=== PATIENT | male | born 1975 | race Caucasian/White ===

== ENCOUNTER 2016-12-12 15:09 | Inpatient (IN) ==
--- NOTE | 2016-12-12 15:34 | Emergency Department Note ---
Disposition Clinical Impression: Cellulitis of foot, Diabetes, Sepsis, Ulcer of left lower leg Disposition: Admitted As Inpatient Referrals: Barby Godwin MD [Primary Care Provider] - Forms: ED Satisfaction Letter General Adult HPI - General Chief complaint: ED Extremity Injury, Lower Stated complaint: Right foot celluitis Time Seen by Provider: 12/12/16 15:32 Source: patient, family Limitations: no limitations - History of Present Illness HPI Narrative: 41-year-old male with a history of diabetes mellitus reports to the emergency department complaining of right foot pain and swelling. The patient is a type II diabetic. The patient states about 9 days ago he injured his toes when he kicked an object on accident. There is no history of ankle or leg injury. The patient has pain mostly in the foot and describes swelling and redness throughout. The patient was recently treated for cellulitis of left lower extremity. He is no longer on antibiotics this time. The patient complains of some calf pain on the right but there has been no chest pain shortness of breath or coughing up blood. No syncope. No abdominal pain vomiting or diarrhea. No upper extremity or left lower extremity concerns apart from chronic residual open lesion on the left lower extremity. There is no history of coldness blueness numbness or weakness of the arms or legs. No trouble moving the arms or legs independently no headache back pain runny nose ear pain or sore throat. No fevers are reported. Last tetanus shot within 5 years. Onset (ago): day(s) Pain Scale: 3 - Related Data Home Medications Medication Instructions Recorded Confirmed Metformin HCl [Fortamet] 1,000 mg PO DAILY 09/23/16 09/23/16 Allergies Allergy/AdvReac Type Severity Reaction Status Date / Time No Known Allergies Allergy Verified 09/01/16 19:41 All systems ED: reviewed and negative except as stated. Past Medical History - Past Medical History Medical history: Reports: diabetes, other Surgical history: Reports: no surgical history Psychiatric history: Reports: anxiety - Social History Smoking Status: Never smoker Smokeless Tobacco Status: No Alcohol use: Reports: none Drug use: Reports: none Physical Exam - General Limitations: no limitations General appearance: alert, in no apparent distress - Head Head exam: atraumatic, normocephalic, normal inspection - Eye Eye exam: Present: normal appearance, PERRL, EOMI. Absent: scleral icterus - ENT ENT exam: normal exam, normal oropharynx, mucous membranes moist, TM's normal bilaterally, normal external ear exam - Neck Neck exam: Present: normal inspection, full ROM, trachea midline. Absent: tenderness - Chest Chest inspection: Present: normal inspection, symmetric chest wall rise - Respiratory Respiratory exam: Present: normal lung sounds bilaterally. Absent: respiratory distress, accessory muscle use, prolonged expiratory phase - Cardiovascular Cardiovascular exam: Present: normal rhythm, tachycardia - Abdominal Exam Abdominal exam: Present: soft, Non-Tender, normal bowel sounds. Absent: tenderness, distention, guarding, rebound, rigidity - Extremities Exam Extremities exam: Present: full ROM, normal capillary refill, other (The upper extremities are supple and warm and well perfused without evidence of injury or acute neurovascular or neuromuscular compromise. The left lower extremity is supple and warm and well perfused without evidence of injury or acute neurovascular or neuromuscular compromise, there is a chronic appearing lesion on the distal posterior calf, no abscess or fluctuance or blackening of the skin. No oozing or drainage. The right lower extremity is supple, there is obvious reddening throughout the entire right foot with edema. The dorsalis pedis pulses palpable. No crepitance of the skin or blackening. Some pain in the leg and calf but no swelling. No oozing weeping or abscess appreciated.). Absent: joint swelling, calf tenderness - Expanded Lower Extremity Exam Lower leg exam: Present: tenderness, swelling. Absent: laceration, ecchymosis, deformity, crepitus, erythema, palpable cord Neurovascular/Tendon exam: Present: normal capillary refill. Absent: motor deficit, sensory deficit, tendon deficit, extremity cold to touch, pallor - Back Exam Back exam: Present: normal inspection, full ROM. Absent: tenderness, CVA tenderness (R), CVA tenderness (L), vertebral tenderness - Neurological Exam Neurological exam: Present: alert, oriented X3, CN II-XII intact. Absent: motor sensory deficit - Psychiatric Psychiatric exam: Present: normal affect, normal mood - Skin Skin exam: Present: warm, dry, intact, normal color, erythema (Right foot only,) . Absent: rash, cyanosis, diaphoresis, pallor, mottled Course Vital Signs Temperature 99.1 F 12/12/16 15:20 Pulse Rate 108 12/12/16 15:20 Respiratory Rate 16 12/12/16 15:20 Blood Pressure 126/80 12/12/16 15:20 O2 Sat by Pulse Oximetry 100 12/12/16 15:20 Temperature 99.1 F 12/12/16 15:20 Pulse Rate 98 12/12/16 17:30 Respiratory Rate 16 12/12/16 17:30 Blood Pressure 114/77 12/12/16 17:30 O2 Sat by Pulse Oximetry 98 12/12/16 17:30 Oxygen Delivery Oxygen Delivery Room Air Medical Decision Making - MDM Narrative Medical decision making narrative: The patient seems to have significant redness of the right foot, x-ray is negative, the patient is tachycardic, has no elevated white count, and a source for infection with an associated CRP in the 270 range. The patient is diabetic and appears to have significant cellulitis and meets sepsis criteria. IV fluids were ordered, IV antibiotics were given. Blood cultures were sent. Based on the patient's acute infection with secondary sepsis parameters, I thought appropriate to admit the patient to the hospital. I have discussed the case with the hospitalist on-call who has accepted the patient to their care. - Lab Data Lab results reviewed: Yes I reviewed the patient's lab results. Result diagrams: 12/12/16 16:12 12/12/16 16:12 Lab Results 12/12/16 12/12/16 12/12/16 Range/Units 16:12 16:12 16:12 WBC 11.9 H (4.3-11.1) K/mcL RBC 4.49 (4.19-5.50) M/mcL Hgb 13.0 (12.9-16.9) g/dL Hct 37.6 (37.5-50.1) % MCV 83.7 (83.0-100.0) fL MCH 29.0 (28.0-33.3) pg MCHC 34.6 (31.6-35.5) g/dL RDW 12.4 (11.5-14.5) % Plt Count 263 (140-400) K/mcL MPV 9.1 L (9.4-12.4) fL Immature Gran % 0.3 (0-4) % Seg Neutrophils % 77.1 % Lymphocytes % 12.4 % Monocytes % 9.3 % Eosinophils % 0.6 % Basophils % 0.3 % Neutrophils # 9.2 H (1.6-8.9) K/mcL Lymphocytes # 1.5 (0.6-4.6) K/mcL Monocytes # 1.1 (0.0-1.3) K/mcL Eosinophils # 0.1 (0.0-0.6) K/mcL Basophils # 0.0 (0.0-0.2) K/mcL Sodium 137 (136-145) mEq/L Potassium 3.8 (3.5-4.5) mEq/L Chloride 98 (98-109) mEq/L Carbon Dioxide 29 (19-29) mEq/L BUN 14 (8-26) mg/dL Creatinine 0.96 (0.72-1.25) mg/dL Est GFR ( Amer) > 60 (> 60) Est GFR (Non-Af Amer) > 60 (> 60) BUN/Creatinine Ratio 15 (6-26) Glucose 203 H (70-99) mg/dL Calculated Osmolality 290 (280-300) Lactic Acid 1.2 (0.5-2.2) mmol/L Calcium 9.7 (8.6-10.8) mg/dL Magnesium 2.0 (1.6-2.6) mg/dL Total Bilirubin 0.8 (0.2-1.2) mg/dL Direct Bilirubin 0.4 (0.0-0.5) mg/dL Indirect Bilirubin 0.4 (0.0-1.2) mg/dL AST 10 (5-34) Units/L ALT 9 (0-55) Units/L Alkaline Phosphatase 77 (38-126) Units/L C-Reactive Protein 270 H (Less than 5) mg/L Serum Total Protein 7.8 (6.0-8.3) g/dL Albumin 3.1 L (3.5-5.0) g/dL Globulin 4.7 H (2.4-3.5) g/dL Albumin/Globulin Ratio 0.7 L (1.1-2.2) - Radiology Data Radiology results reviewed: Yes I reviewed the patient's radiology results.
[2016-12-12] MEDS ORDERED: Vancomycin 1,000 MG in D5% in Water 250 ML IVPB ONE (15:43)
[2016-12-12] MEDS ORDERED: Piperacillin/Tazobactam 3.375 GM in D5% in Water (Mini-Bag+) 100 ML IVPB ONE (15:43)
[2016-12-12] MEDS ORDERED: *HR* HYDROcodone/Acet 5/325 mg TABLET PO ONE (15:43)
[2016-12-12] MEDS ORDERED: 0.9 % Sodium Chloride 1,000 ML IVC SCH (15:45)
[2016-12-12 16:21] LABS: Basophils % 0.3 %; Eosinophils # 0.1 K/mcL (0.0-0.6); Eosinophils % 0.6 %; Hematocrit 37.6 % (37.5-50.1); Immature Granulocytes % 0.3 % (0-4); Lymphocytes # 1.5 K/mcL (0.6-4.6); Lymphocytes % 12.4 %; Mean Corpuscular HGB Conc 34.6 g/dL (31.6-35.5); Mean Corpuscular Volume 83.7 fL (83.0-100.0); Mean Platelet Volume 9.1 fL (9.4-12.4); Monocytes # 1.1 K/mcL (0.0-1.3); Monocytes % 9.3 %; Neutrophils # 9.2 K/mcL (1.6-8.9); Platelet Count 263 K/mcL (140-400); Red Blood Count 4.49 M/mcL (4.19-5.50); Red Cell Distribution Width 12.4 % (11.5-14.5); Segmented Neutrophils % 77.1 %
[2016-12-12 16:33] LABS: Alanine Aminotransferase 9 Units/L (0-55); Albumin 3.1 g/dL (3.5-5.0); Albumin/Globulin Ratio 0.7 (1.1-2.2); Alkaline Phosphatase 77 Units/L (38-126); Aspartate Amino Transferase 10 Units/L (5-34); BUN/Creatinine Ratio 15 (6-26); Bilirubin,Direct 0.4 mg/dL (0.0-0.5); Bilirubin,Indirect 0.4 mg/dL (0.0-1.2); Bilirubin,Total 0.8 mg/dL (0.2-1.2); Blood Urea Nitrogen 14 mg/dL (8-26); Calcium 9.7 mg/dL (8.6-10.8); Carbon Dioxide 29 mEq/L (19-29); Chloride 98 mEq/L (98-109); Globulin 4.7 g/dL (2.4-3.5); Glucose 203 mg/dL (70-99); Osmolality,Calculated 290 (280-300); Potassium 3.8 mEq/L (3.5-4.5); Sodium 137 mEq/L (136-145); Total Protein 7.8 g/dL (6.0-8.3); eGFR For African Americans > 60 (> 60); eGFR For Non-African Americans > 60 (> 60)
[2016-12-12 17:57] LABS: C-Reactive Protein 270 mg/L (Less than 5)
[2016-12-12] MEDS ORDERED: Dextrose Gel 15 GM PO PRN ×2 (19:45)
[2016-12-12] MEDS ORDERED: Naloxone 0.4 MG/ML INJ IVP PRN (19:45)
[2016-12-12] MEDS ORDERED: *HR* Dextrose 50 % in Water (Syg) 50 ML SYRINGE IVP PRN (19:45)
[2016-12-12] MEDS ORDERED: D5% in Water 1,000 ML IVC PRN (19:45)
[2016-12-12] MEDS ORDERED: *HR* HYDROcodone/Acet 5/325 mg TABLET PO PRN (19:45)
[2016-12-12] MEDS ORDERED: Ibuprofen 400 MG TABLET PO PRN (19:45)
[2016-12-12] MEDS ORDERED: *HR* Morphine 2 MG/ML SYRINGE IVP PRN (19:45)
--- NOTE | 2016-12-12 19:59 | Internal Med History&Physical ---
Date of Encounter: 12/12/16 Time of Encounter: 19:49 Assessment and Plan (1) Cellulitis of foot Current visit: Yes Status: Acute Patient with swelling, erythema, and tenderness in right foot and calf. WBC elevated to 11.9. CRP elevated 270. Foot xray shows no acute osseous abnormality. blood cultures drawn and sent. IV vanc and zosyn IV fluids 0.9NS at 100ml/hr will also get doppler of RLE to rule out DVT. (2) Sepsis Current visit: Yes Status: Acute Patient with RLE cellulitis, elevated WBC to 11.9 and tachycardia with HR 90s- 100s, meeting criteria for sepsis. Lactic acid normal at 1.2 blood cultures drawn and sent IV antibiotic initiated with vanc and zosyn Patient given 2L of fluid bolus in the ED IV fluids at 100mL/hr Qualifiers: Sepsis type: sepsis due to unspecified organism Qualified Code(s): A41.9 - Sepsis, unspecified organism (3) Type 2 diabetes mellitus Current visit: Yes Status: Acute Patient diagnosed with Type 2 diabetes in August when he presented with LLE ulcer. Hgb A1c was 10.3% at that time. Since then, he has been on a diabetic diet and taking metformin. Hold metformin. Check Hgb A1c diabetic diet sliding scale correction dose hypoglycemic protocol. Qualifiers: Diabetes mellitus complication status: with skin complications Diabetes mellitus complication detail: with other skin ulcer Diabetes mellitus residential insulin use: without residential use Qualified Code(s): E11.622 - Type 2 diabetes mellitus with other skin ulcer (4) Ulcer of left lower leg Current visit: Yes Status: Acute Patient has healing ulcer of LLE, following with the wound care center as an outpatient. Consult to wound care. Qualifiers: Non-pressure ulcer stage: limited to breakdown of skin Qualified Code(s): L97.921 - Non-pressure chronic ulcer of unspecified part of left lower leg limited to breakdown of skin (5) DVT prophylaxis Current visit: Yes Status: Acute Up to chair BID anti-embolic stockings lovenox 40mg SQ daily Internal Medicine - H&P: HPI Chief complaint: RLE pain and swelling Admitted From: Emergency Dept Plans for Post Hospital Care: Home History of present illness: Mr. Lewis is a 41 year old male with mild developmental delay, with recently diagnosed type 2 diabetes and LLE diabetic ulcer who presented to the ED today with complaints of right foot pain, swelling and redness. Patient reports that over a week ago, he accidentally kicked something with his right foot, resulting in the loss of 2 of his toe nails. He noted some redness on the the top of his right foot on , which he thought was just a rash. He developed some pain in the right calf on Wednesday. This morning he woke up and the foot was significantly swollen and the pain had increased, prompting his mother to bring him to the ED. He denies any fever, chills, sweats, body aches , nausea, vomiting or diarrhea. He reports some tingling in the right toes. Evaluation in the ED included a right foot xray which was negative for any acute osseous abnormality. The blood cell count was elevated to 11.9. Blood sugar was elevated to 203. Lactic acid was normal at 1.2. He was tachycardic with heart rate in the 90s to low 100s. Blood cultures were drawn and patient was initiated on broad-spectrum antibiotics. On exam, patient is alert and oriented, in no acute distress. Heart has regular rate and rhythm and lungs are clear bilaterally to ausculation. Right foot has significant swelling with erythema in the dorsal aspect just proximal to the toes. He has good capillary refill in the toes and intact sensation and movement. He has a healing ulcer on the posterior aspect of his left lower leg. He is tender to palpation in right ankle and posterior calf. Past Med Surg Social Fam HX - Past Medical History Medical history: diabetes, other Psychiatric history: anxiety - Past Surgical History Surgical History: no surgical history - Social History Smoking Status: Never smoker Smokeless Tobacco Status: No Alcohol use: none Drug use: none - Family History Mother Living Status: Still Living Hx Family Endocrine Disorder: Yes Father Living Status: Cause of : DC Hx Family Cardiac Disorders: Yes Internal Medicine - H&P: Meds Metformin HCl [Fortamet] 1,000 mg PO DAILY 09/23/16 [History] Allergies No Known Allergies Allergy (Verified 09/01/16 19:41) All Systems PM: A 10-system review of systems was performed and is negative for pertinent findings except as documented above in the HPI. - Constitutional Constitutional: no chills, no fever(s), no night sweats - EENT Eyes: no change in vision, no discharge, no pain, no photophobia Ears: no ear discharge, no ear pain, no tinnitus Nose, mouth and throat: no dysphagia, no nasal discharge, no neck pain, no sore throat - Cardiovascular Cardiovascular ROS IM: no chest pain, no diaphoresis, no dyspnea, no lightheadedness, no palpitations, no syncope - Respiratory Respiratory: no cough, no dyspnea, no wheezing, no excessive phlegm production - Gastrointestinal Gastrointestinal: no abdominal pain, no diarrhea, no hematemesis, no hematochezia, no melena, no nausea, no vomiting - Musculoskeletal Musculoskeletal ROS IM: joint swelling (right foot), tingling (right toes), no numbness - Integumentary Integumentary IM: no rash, no unusual bruising - Neurological Neurological ROS: no confusion, no convulsions, no focal weakness, no numbness, no tingling, no tremor(s) - Hematologic/Lymphatic Hematologic/Lymphatic: no easy bruising - Constitutional Vitals: Temp Pulse Resp BP Pulse Ox 99.1 F 94 16 113/72 99 12/12/16 15:20 12/12/16 18:49 12/12/16 18:59 12/12/16 18:59 12/12/16 18:49 General appearance: Present: A&O X 3, pleasant, no acute distress - Head Head exam: Present: atraumatic, normocephalic - Eye Eye exam: Present: PERRL, conjuntiva pink, sclera anicteric Pupils: Present: PERRL - Neck Neck exam general surgery: Present: supple, trachea midline. Absent: lymphadenopathy - Respiratory Respiratory exam: Present: CTAB. Absent: accessory muscle use, rales, rhonchi, wheezes - Cardiovascular Cardiovascular exam: Present: RRR, +S1, +S2. Absent: diastolic murmur, gallop, rubs, systolic murmur - GI/Abdominal GI/Abdominal exam: Present: normal bowel sounds, soft, no peritoneal signs. Absent: distended, tenderness - Extremities Exam Extremities exam: Present: calf tenderness (right), normal capillary refill, pedal edema (right foot ), tenderness (right ankle and calf), warm, radial pulses palpable and symetrical. Absent: cyanotic - Neurological Exam Neurological exam: Present: CN II-XII intact, oriented X3, no focal deficits. Absent: facial droop, speech deficit - Skin Skin exam: Present: dry, intact Internal Med - H&P Results - Labs CBC & Chem 7: 12/12/16 16:12 12/12/16 16:12 Labs: All Lab Results (24 Hours) 12/12/16 12/12/16 12/12/16 Range/Units 16:12 16:12 16:12 WBC 11.9 H (4.3-11.1) K/mcL RBC 4.49 (4.19-5.50) M/mcL Hgb 13.0 (12.9-16.9) g/dL Hct 37.6 (37.5-50.1) % MCV 83.7 (83.0-100.0) fL MCH 29.0 (28.0-33.3) pg MCHC 34.6 (31.6-35.5) g/dL RDW 12.4 (11.5-14.5) % Plt Count 263 (140-400) K/mcL MPV 9.1 L (9.4-12.4) fL Immature Gran % 0.3 (0-4) % Seg Neutrophils % 77.1 % Lymphocytes % 12.4 % Monocytes % 9.3 % Eosinophils % 0.6 % Basophils % 0.3 % Neutrophils # 9.2 H (1.6-8.9) K/mcL Lymphocytes # 1.5 (0.6-4.6) K/mcL Monocytes # 1.1 (0.0-1.3) K/mcL Eosinophils # 0.1 (0.0-0.6) K/mcL Basophils # 0.0 (0.0-0.2) K/mcL Sodium 137 (136-145) mEq/L Potassium 3.8 (3.5-4.5) mEq/L Chloride 98 (98-109) mEq/L Carbon Dioxide 29 (19-29) mEq/L BUN 14 (8-26) mg/dL Creatinine 0.96 (0.72-1.25) mg/dL Est GFR ( Amer) > 60 (> 60) Est GFR (Non-Af Amer) > 60 (> 60) BUN/Creatinine Ratio 15 (6-26) Glucose 203 H (70-99) mg/dL Calculated Osmolality 290 (280-300) Lactic Acid 1.2 (0.5-2.2) mmol/L Calcium 9.7 (8.6-10.8) mg/dL Magnesium 2.0 (1.6-2.6) mg/dL Total Bilirubin 0.8 (0.2-1.2) mg/dL Direct Bilirubin 0.4 (0.0-0.5) mg/dL Indirect Bilirubin 0.4 (0.0-1.2) mg/dL AST 10 (5-34) Units/L ALT 9 (0-55) Units/L Alkaline Phosphatase 77 (38-126) Units/L C-Reactive Protein 270 H (Less than 5) mg/L Serum Total Protein 7.8 (6.0-8.3) g/dL Albumin 3.1 L (3.5-5.0) g/dL Globulin 4.7 H (2.4-3.5) g/dL Albumin/Globulin Ratio 0.7 L (1.1-2.2) - Diagnostic Studies Other Images Additional comments: Foot X-Ray 12/12/16 15:42 IMPRESSION: No acute osseous abnormality. D/ / Lee Cadena MD / Lee Cadena MD Interpreting Provider: Lee Cadena MD
[2016-12-12 20:03] LABS: Hemoglobin A1C 6.7 %
--- NOTE | 2016-12-12 20:37 | Event Note ---
Date of Encounter: 12/12/16 Time of Encounter: 20:36 Patient seen and examined. Right foot cellulitis. Still has a left leg non- healing wound. Karli. A1C 6.7. Blood and wound culture. Full code
[2016-12-12] MEDS ORDERED: Vancomycin 1,500 MG in D5% in Water 250 ML IVPB SCH (21:00)
[2016-12-12] MEDS: Insulin LISPRO 300 UNITS/3 ML VIAL SQ SCH (22:20)
[2016-12-12] MEDS: 0.9 % Sodium Chloride 1,000 ML IVC SCH (22:24)
[2016-12-12] MEDS: Piperacillin/Tazobactam 3.375 GM in D5% in Water (Mini-Bag+) 100 ML IVPB SCH (23:43)
[2016-12-13] MEDS: Vancomycin 1,500 MG in D5% in Water 250 ML IVPB SCH ×2 (06:05→16:24)
[2016-12-13] MEDS: *HR* Enoxaparin 40 MG/0.4 ML SYRINGE SQ SCH (06:05)
[2016-12-13 06:07] LABS: Basophils % 0.4 %; Eosinophils # 0.1 K/mcL (0.0-0.6); Eosinophils % 0.7 %; Immature Granulocytes % 0.3 % (0-4); Lymphocytes # 1.3 K/mcL (0.6-4.6); Lymphocytes % 12.8 %; Mean Corpuscular HGB Conc 34.7 g/dL (31.6-35.5); Mean Corpuscular Hemoglobin 29.5 pg (28.0-33.3); Mean Corpuscular Volume 85.1 fL (83.0-100.0); Mean Platelet Volume 9.4 fL (9.4-12.4); Monocytes # 0.9 K/mcL (0.0-1.3); Monocytes % 8.5 %; Neutrophils # 7.8 K/mcL (1.6-8.9); Platelet Count 240 K/mcL (140-400); Red Blood Count 3.76 M/mcL (4.19-5.50); Red Cell Distribution Width 12.7 % (11.5-14.5); Segmented Neutrophils % 77.3 %
[2016-12-13 06:16] LABS: BUN/Creatinine Ratio 13 (6-26); Blood Urea Nitrogen 10 mg/dL (8-26); Calcium 8.3 mg/dL (8.6-10.8); Carbon Dioxide 23 mEq/L (19-29); Chloride 103 mEq/L (98-109); Glucose 178 mg/dL (70-99); Osmolality,Calculated 287 (280-300); Potassium 3.7 mEq/L (3.5-4.5); Sodium 137 mEq/L (136-145); eGFR For African Americans > 60 (> 60); eGFR For Non-African Americans > 60 (> 60)
[2016-12-13 06:30] LABS: Hemoglobin 11.1 g/dL (12.9-16.9)
[2016-12-13] MEDS: Insulin LISPRO 300 UNITS/3 ML VIAL SQ SCH ×4 (08:23→21:15)
[2016-12-13] MEDS: Piperacillin/Tazobactam 3.375 GM in D5% in Water (Mini-Bag+) 100 ML IVPB SCH ×2 (08:27→16:14)
--- NOTE | 2016-12-13 09:05 | Internal Med Progress Note ---
<Dimas Trinidad - Last Filed: 12/13/16 16:08> Date of Encounter: 12/13/16 Time of Encounter: 09:03 - Assessment and plan (1) Cellulitis of foot Current Visit: Yes Status: Acute Assessment and plan: Cellulitis of right foot up to mid crespo. Patient is currently on broad- spectrum antibiotics including vancomycin and Zosyn. Possible sources may be secondary to injury to the third and fourth toenails in the setting of type 2 diabetes and fungal infection. Patient also has a lesion on the plantar surface callus that may be a source of infection. - Will continue antibiotic coverage with Vancomycin. Coverage for staph. - Topical fungal coverage as patient appears to have right foot fungal infection. - 3 x-ray of the right foot does not demonstrate any bony fractures, there is soft tissue edema. Plan: -Continue current antibiotic coverage - Controlled type 2 diabetes for improved healing (2) Callus of foot Current Visit: No Status: Acute Assessment and plan: Patient has callus of bilateral feet with pes cavus. Patient is a type II diabetic with calluses of both feet and the lesion on the right callus. - Patient will require podiatry follow-up outpatient for footcare. (3) Ulcer of left lower leg Current Visit: Yes Status: Acute Assessment and plan: Chronic ulcer of the left lower extremity, not infected. currently continue wound care. - Continue Armando wrap. - Consult was placed and care. Qualifiers: Non-pressure ulcer stage: limited to breakdown of skin Qualified Code(s): L97.921 - Non-pressure chronic ulcer of unspecified part of left lower leg limited to breakdown of skin (4) Type 2 diabetes mellitus Current Visit: Yes Status: Acute Assessment and plan: Patient is a known type II diabetic, with A1c of 6.7 upon admission. Currently hyperglycemic, home medications are metformin by mouth daily Plan: - Continue ACHS glucose checks -Continue low-dose inpatient sliding scale - Levemir 10 units subcutaneous at bedtime Qualifiers: Diabetes mellitus complication status: with skin complications Diabetes mellitus complication detail: with other skin ulcer Diabetes mellitus halfway insulin use: without intermediate school teacher use Qualified Code(s): E11.622 - Type 2 diabetes mellitus with other skin ulcer - Subjective Interval history: Mr. Lewis 41M has been seen and evaluated this morning patient bedside. He is alert awake in no acute distress and has minimal pain. He feels that the swelling and pain has improved significantly compared to admission. He mentions that prior to the right foot swelling and erythema he had hit the corner of his bed ripping off two toe nails. The erythema and edema was progressive. He says the ulcer on the left lower extremity is improving and at the time of original diagnosis he was also diagnosed with type 2 diabetes with glucoses around 300. He denies any headaches, change in vision, chest pressure or chest pain or palpitations, nausea vomiting diarrhea constipation or polyuria. He is tolerating antibiotic therapy and is looking forward to discharge. - Constitutional Vitals: Temp Pulse Resp BP Pulse Ox 99.4 F 98 18 106/69 98 12/13/16 06:54 12/13/16 06:54 12/13/16 06:54 12/13/16 06:54 12/13/16 06:54 General appearance: Present: A&O X 3, pleasant, no acute distress - Head Head exam: Present: atraumatic, normocephalic - Eye Eye exam: Present: PERRL, conjuntiva pink, sclera anicteric Pupils: Present: PERRL - ENT ENT exam: Present: mucous membranes moist - Neck Neck exam general surgery: Present: supple, trachea midline. Absent: lymphadenopathy - Respiratory Respiratory exam: Present: CTAB. Absent: accessory muscle use, rales, rhonchi, wheezes - Cardiovascular Cardiovascular exam: Present: RRR, +S1, +S2. Absent: diastolic murmur, gallop, rubs, systolic murmur - GI/Abdominal GI/Abdominal exam: Present: normal bowel sounds, soft, no peritoneal signs. Absent: distended, tenderness - Extremities Exam Extremities exam: Present: pedal edema, warm, radial pulses palpable and symetrical. Absent: calf tenderness, cyanotic Additional comments: Right lower extremity demonstrates erythema and edema of the right foot, with erythema up to mid crespo. There are healed lesions to the cuticles of digits 3 and 4 of the right foot. Left lower extremity has Armando bandages wrapping around the distal portion above the ankle. Patient has full range of motion of the ankle joint and knee joint. No signs of erythema or edema surrounding. Patient has pes cavus left foot. - Neurological Exam Neurological exam: Present: alert, oriented X3, no focal deficits. Absent: pronater drift, facial droop, speech deficit - Psychiatric Psychiatric exam: Present: normal affect, normal mood Internal Medicine: Result - Labs CBC & Chem 7: 12/13/16 05:47 12/13/16 05:47 Labs: Short CBC 12/13/16 Range/Units 05:47 WBC 10.1 (4.3-11.1) K/mcL Hgb 11.1 L D (12.9-16.9) g/dL Hct 32.0 L (37.5-50.1) % Plt Count 240 (140-400) K/mcL Neutrophils # 7.8 (1.6-8.9) K/mcL BMP 12/13/16 05:47 Sodium 137 Potassium 3.7 Chloride 103 Carbon Dioxide 23 BUN 10 Creatinine 0.77 Glucose 178 H Calcium 8.3 L Consult Discharge Plan - Plan Referrals: Barby Godwin MD [Primary Care Provider] - <Katie Prasad - Last Filed: 12/13/16 17:35> Date of Encounter: 12/13/16 - Constitutional Vitals: Temp Pulse Resp BP Pulse Ox 98.3 F 101 18 119/80 97 12/13/16 16:45 12/13/16 16:45 12/13/16 16:45 12/13/16 16:45 12/13/16 16:45 Internal Medicine: Result - Labs CBC & Chem 7: 12/13/16 05:47 12/13/16 05:47 Labs: Short CBC 12/13/16 Range/Units 05:47 WBC 10.1 (4.3-11.1) K/mcL Hgb 11.1 L D (12.9-16.9) g/dL Hct 32.0 L (37.5-50.1) % Plt Count 240 (140-400) K/mcL Neutrophils # 7.8 (1.6-8.9) K/mcL BMP 12/13/16 05:47 Sodium 137 Potassium 3.7 Chloride 103 Carbon Dioxide 23 BUN 10 Creatinine 0.77 Glucose 178 H Calcium 8.3 L - Attending Attestation I examined this patient and reviewed laboratory, imaging and all diagnostic data. My medical decision-making was reviewed with Dr Trinidad - Resident Physician. I agree with the documented findings, disposition and treatment plan as described above
[2016-12-13] MEDS: 0.9 % Sodium Chloride 1,000 ML IVC SCH ×2 (10:24→23:14)
--- NOTE | 2016-12-13 13:43 | Venous Imaging Report ---
LE Venous Duplex Patient Name:Carlos Lewis Order Number:[id number] Procedure Date:12/13/2016 Date:1975Age:41 yrs Gender:Male Location:[facility] Room #: 3B52 Chaplain Resident:Kyree Mays RDCS Referring MD:Marysol Cortez, BODILY INJURY ADJUSTER recovery collector:Jeanie Godwin MD Reading MD:Michael Kinsey MD Primary Indications:Pain and swelling Secondary Indications: Risk Factors Yes/No Anticoagulants Yes Impressions: Right lower extremity: normal superficial and deep exam. Recommendations: After imaging the patient returned to their room. Critical findings reported to social media editor in person by Kyree Mays RDCS. Findings Venous Duplex Results: Right: Venous imaging of the lower extremity reveals full patency and normal vessel compressibility of the right distal iliac, right common femoral, right superficial femoral, right popliteal, right posterior tibial, right peroneal, right great saphenous and right lesser saphenous. Doppler signals in the evaluated veins were normal. Left: Venous imaging of the lower extremity reveals full patency and normal vessel compressibility of the left common femoral. Doppler signals in the evaluated veins were normal. Prior Study: No prior study available for comparison. Lower Extremity Venous Duplex Side Vein Compress Spontaneous Flow Augment Diameter (cm) Depth (cm) Right Distal Iliac Normal Yes Phasic Yes Right Common Femoral Normal Yes Phasic Yes Right Superficial Femoral Normal Yes Phasic Yes Right Popliteal Normal Yes Phasic Yes Right Posterior Tibial Normal Yes Phasic Yes Right Peroneal Normal Yes Phasic Yes Right Great Saphenous Normal Yes Phasic Yes Right Lesser Saphenous Normal Yes Phasic Yes Left Common Femoral Normal Yes Phasic Yes Updated by Michael Kinsey MD on 12/13/2016 1:39:19 PM electronically signed on 12/13/2016 1:39:48 PM with status of Final
[2016-12-13] MEDS: Insulin DETEMIR 100 UNIT/ML X5UNITS SQ SCH ×2 (13:46→21:33)
[2016-12-13] MEDS: Miconazole 2% cream 118 GM TUBE TP SCH ×2 (16:24→21:33)
[2016-12-14] MEDS: Piperacillin/Tazobactam 3.375 GM in D5% in Water (Mini-Bag+) 100 ML IVPB SCH (01:10)
[2016-12-14] MEDS: Vancomycin 1,500 MG in D5% in Water 250 ML IVPB SCH (04:34)
[2016-12-14 05:31] LABS: Basophils % 0.3 %; Eosinophils # 0.1 K/mcL (0.0-0.6); Eosinophils % 1.1 %; Hematocrit 33.1 % (37.5-50.1); Hemoglobin 10.9 g/dL (12.9-16.9); Immature Granulocytes % 0.4 % (0-4); Lymphocytes # 1.5 K/mcL (0.6-4.6); Lymphocytes % 12.9 %; Mean Corpuscular HGB Conc 32.9 g/dL (31.6-35.5); Mean Corpuscular Hemoglobin 28.4 pg (28.0-33.3); Mean Corpuscular Volume 86.2 fL (83.0-100.0); Monocytes # 1.1 K/mcL (0.0-1.3); Monocytes % 9.7 %; Neutrophils # 8.6 K/mcL (1.6-8.9); Platelet Count 282 K/mcL (140-400); Red Blood Count 3.84 M/mcL (4.19-5.50); Red Cell Distribution Width 12.6 % (11.5-14.5); Segmented Neutrophils % 75.6 %
[2016-12-14 05:36] LABS: BUN/Creatinine Ratio 10 (6-26); Blood Urea Nitrogen 8 mg/dL (8-26); Calcium 8.4 mg/dL (8.6-10.8); Carbon Dioxide 25 mEq/L (19-29); Chloride 104 mEq/L (98-109); Glucose 149 mg/dL (70-99); Osmolality,Calculated 285 (280-300); Potassium 3.5 mEq/L (3.5-4.5); Sodium 137 mEq/L (136-145); eGFR For African Americans > 60 (> 60); eGFR For Non-African Americans > 60 (> 60)
[2016-12-14] MEDS: *HR* Enoxaparin 40 MG/0.4 ML SYRINGE SQ SCH (05:43)
[2016-12-14] MEDS: Insulin LISPRO 300 UNITS/3 ML VIAL SQ SCH ×4 (08:40→20:47)
[2016-12-14] MEDS: Miconazole 2% cream 118 GM TUBE TP SCH ×2 (08:44→20:47)
[2016-12-14] MEDS: Insulin DETEMIR 100 UNIT/ML X5UNITS SQ SCH ×2 (11:56→20:45)
[2016-12-14] MEDS: 0.9 % Sodium Chloride 1,000 ML IVC SCH (11:56)
--- NOTE | 2016-12-14 12:04 | Internal Med Progress Note ---
<Dimas Trinidad - Last Filed: 12/14/16 15:10> Date of Encounter: 12/14/16 Time of Encounter: 09:00 - Assessment and plan (1) Cellulitis of foot Current Visit: Yes Status: Acute Assessment and plan: Cellulitis of right foot up to mid crespo. On admission, Patient was on broad- spectrum antibiotics including vancomycin and Zosyn. He was de-escalated to only Vancomycin 12/13. Possible sources may be secondary to injury to the third and fourth toenails in the setting of type 2 diabetes and fungal infection. Patient also has a lesion on the plantar surface callus that may be a source of infection. - 3 x-ray of the right foot does not demonstrate any bony fractures, there is soft tissue edema. Plan: - Will continue antibiotic coverage with Vancomycin. Coverage for staph. Plan to switch to PO antibiotics at discharge. - Topical fungal coverage as patient appears to have right foot fungal infection. - Controlled type 2 diabetes for improved healing (2) Callus of foot Current Visit: No Status: Acute Assessment and plan: Patient has callus of bilateral feet with pes cavus. Patient is a type II diabetic with calluses of both feet and the lesion on the right callus. - Patient will require podiatry follow-up outpatient for foot care. (3) Ulcer of left lower leg Current Visit: Yes Status: Acute Assessment and plan: Chronic ulcer of the left lower extremity, not infected. currently continue wound care. - Continue Armando wrap and wound care. Qualifiers: Non-pressure ulcer stage: limited to breakdown of skin Qualified Code(s): L97.921 - Non-pressure chronic ulcer of unspecified part of left lower leg limited to breakdown of skin (4) Type 2 diabetes mellitus Current Visit: Yes Status: Acute Assessment and plan: Patient is a known type II diabetic, with A1c of 6.7 upon admission. Currently hyperglycemic, home medications are metformin by mouth daily Plan: - Continue ACHS glucose checks - Continue low-dose inpatient sliding scale - Increased Levemir 10 units to twice a day. Qualifiers: Diabetes mellitus complication status: with skin complications Diabetes mellitus complication detail: with other skin ulcer Diabetes mellitus predatory animal exterminator insulin use: without predatory animal exterminator use Qualified Code(s): E11.622 - Type 2 diabetes mellitus with other skin ulcer - Subjective Interval history: Mr. Lewis 41M has been seen and evaluated this morning patient bedside. He is alert awake in no acute distress and has minimal pain. Pain and discomfort is improved daily. Still continues to have edematous right foot with erythema but denies any pain with movement. Denies any blurry vision, chest pains, shortness of breath, fevers chills, palpitations abdominal pains nausea vomiting diarrhea constipation. He is tolerating antibiotics currently. - Constitutional Vitals: Temp Pulse Resp BP Pulse Ox 97.5 F L 94 14 112/73 95 12/14/16 10:46 12/14/16 10:46 12/14/16 10:46 12/14/16 10:46 12/14/16 10:46 General appearance: Present: A&O X 3, pleasant, no acute distress - Head Head exam: Present: atraumatic, normocephalic - Eye Eye exam: Present: PERRL, conjuntiva pink, sclera anicteric Pupils: Present: PERRL - ENT ENT exam: Present: mucous membranes moist - Neck Neck exam general surgery: Present: supple, trachea midline. Absent: lymphadenopathy - Respiratory Respiratory exam: Present: CTAB. Absent: accessory muscle use, rales, rhonchi, wheezes - Cardiovascular Cardiovascular exam: Present: RRR, +S1, +S2. Absent: diastolic murmur, gallop, rubs, systolic murmur - GI/Abdominal GI/Abdominal exam: Present: normal bowel sounds, soft, no peritoneal signs. Absent: distended, tenderness - Extremities Exam Extremities exam: Present: pedal edema, warm, radial pulses palpable and symetrical. Absent: calf tenderness, cyanotic Additional comments: Right lower extremity demonstrates erythema and edema of the right foot. Increased edema compared to yesterday. There are healed lesions to the cuticles of digits 3 and 4 of the right foot. Left lower extremity has Armando bandages wrapping around the distal portion above the ankle. Patient has full range of motion of the ankle joint and knee joint. No signs of erythema or edema surrounding. Patient has pes cavus left foot. - Neurological Exam Neurological exam: Present: alert, oriented X3, no focal deficits. Absent: pronater drift, facial droop, speech deficit - Psychiatric Psychiatric exam: Present: normal affect, normal mood Internal Medicine: Result - Labs CBC & Chem 7: 12/14/16 04:05 12/14/16 04:05 Labs: Short CBC 04/24/17 Range/Units 04:05 WBC 11.4 H (4.3-11.1) K/mcL Hgb 10.9 L (12.9-16.9) g/dL Hct 33.1 L (37.5-50.1) % Plt Count 282 (140-400) K/mcL Neutrophils # 8.6 (1.6-8.9) K/mcL BMP 12/14/16 04:05 Sodium 137 Potassium 3.5 Chloride 104 Carbon Dioxide 25 BUN 8 Creatinine 0.80 Glucose 149 H Calcium 8.4 L Consult Discharge Plan - Plan Referrals: Barby Godwin MD [Primary Care Provider] - <Katie Prasad E - Last Filed: 12/14/16 17:54> Date of Encounter: 12/14/16 - Constitutional Vitals: Temp Pulse Resp BP Pulse Ox 98.4 F 102 18 120/74 95 12/14/16 15:02 12/14/16 15:02 12/14/16 15:02 12/14/16 15:02 12/14/16 15:02 Internal Medicine: Result - Labs CBC & Chem 7: 12/14/16 04:05 12/14/16 04:05 Labs: Short CBC 12/14/16 Range/Units 04:05 WBC 11.4 H (4.3-11.1) K/mcL Hgb 10.9 L (12.9-16.9) g/dL Hct 33.1 L (37.5-50.1) % Plt Count 282 (140-400) K/mcL Neutrophils # 8.6 (1.6-8.9) K/mcL [facility] 12/14/16 04:05 Sodium 137 Potassium 3.5 Chloride 104 Carbon Dioxide 25 BUN 8 Creatinine 0.80 Glucose 149 H Calcium 8.4 L - Attending Attestation I examined this patient and reviewed laboratory, imaging and all diagnostic data. My medical decision-making was reviewed with Dr Trinidad - Resident Physician. I agree with the documented findings, disposition and treatment plan as described above
[2016-12-14] MEDS ORDERED: Ibuprofen 400 MG TABLET PO PRN (13:47)
[2016-12-14] MEDS: Vancomycin 1,750 MG in D5% in Water 500 ML IVPB SCH (15:24)
[2016-12-15] MEDS: 0.9 % Sodium Chloride 1,000 ML IVC SCH (00:01)
[2016-12-15] MEDS: Vancomycin 1,750 MG in D5% in Water 500 ML IVPB SCH ×2 (04:36→17:48)
[2016-12-15 05:01] LABS: Basophils # 0.1 K/mcL (0.0-0.2); Basophils % 0.5 %; Eosinophils # 0.4 K/mcL (0.0-0.6); Eosinophils % 3.2 %; Hematocrit 31.6 % (37.5-50.1); Hemoglobin 10.7 g/dL (12.9-16.9); Immature Granulocytes % 0.3 % (0-4); Lymphocytes # 1.9 K/mcL (0.6-4.6); Lymphocytes % 17.2 %; Mean Corpuscular HGB Conc 33.9 g/dL (31.6-35.5); Mean Corpuscular Hemoglobin 29.2 pg (28.0-33.3); Mean Corpuscular Volume 86.3 fL (83.0-100.0); Mean Platelet Volume 9.1 fL (9.4-12.4); Monocytes # 1.1 K/mcL (0.0-1.3); Monocytes % 10.2 %; Neutrophils # 7.6 K/mcL (1.6-8.9); Platelet Count 297 K/mcL (140-400); Red Blood Count 3.66 M/mcL (4.19-5.50); Red Cell Distribution Width 12.6 % (11.5-14.5); Segmented Neutrophils % 68.6 %
[2016-12-15 05:16] LABS: BUN/Creatinine Ratio 10 (6-26); Blood Urea Nitrogen 8 mg/dL (8-26); Calcium 8.5 mg/dL (8.6-10.8); Carbon Dioxide 27 mEq/L (19-29); Chloride 105 mEq/L (98-109); Glucose 137 mg/dL (70-99); Osmolality,Calculated 288 (280-300); Potassium 3.5 mEq/L (3.5-4.5); Sodium 139 mEq/L (136-145); eGFR For African Americans > 60 (> 60); eGFR For Non-African Americans > 60 (> 60)
[2016-12-15] MEDS: *HR* Enoxaparin 40 MG/0.4 ML SYRINGE SQ SCH (07:18)
--- NOTE | 2016-12-15 09:14 | Internal Med Progress Note ---
<Dimas Trinidad - Last Filed: 12/15/16 11:25> Date of Encounter: 12/15/16 Time of Encounter: 09:12 - Assessment and plan (1) Cellulitis of foot Current Visit: Yes Status: Acute Assessment and plan: Cellulitis of right foot up to mid crespo. On admission, Patient was on broad- spectrum antibiotics including vancomycin and Zosyn. He was de-escalated to only Vancomycin 12/13. Possible sources may be secondary to injury to the third and fourth toenails in the setting of type 2 diabetes and fungal infection. Patient also has a lesion on the plantar surface callus that may be a source of infection. - 3 view x-ray of the right foot does not demonstrate any bony fractures, there is soft tissue edema. 12/15/2016: Evaluation today demonstrates improvement of the erythema but now blister formation between digits 4 and 5 of the right foot and drainage which is clear yellow likely serous. Right foot is still very edematous but demonstrating improvements on IV antibiotics. - May benefit from one more day of IV antibiotic therapy prior to discharge. Plan: - Will continue antibiotic coverage with Vancomycin. Coverage for staph. Plan to switch to PO antibiotics ( likely Bactrim DS) at discharge. - Topical fungal coverage as patient appears to have right foot fungal infection. - Controlled type 2 diabetes for improved healing - Consult placed to podiatry (2) Callus of foot Current Visit: No Status: Acute Assessment and plan: Patient has callus of bilateral feet with pes cavus. Patient is a type II diabetic with calluses of both feet and the lesion on the right callus. - Patient will require podiatry follow-up outpatient for foot care. (3) Ulcer of left lower leg Current Visit: Yes Status: Acute Assessment and plan: Chronic ulcer of the left lower extremity, not infected. currently continue wound care. - Continue Armando wrap and wound care. Qualifiers: Non-pressure ulcer stage: limited to breakdown of skin Qualified Code(s): L97.921 - Non-pressure chronic ulcer of unspecified part of left lower leg limited to breakdown of skin (4) Type 2 diabetes mellitus Current Visit: Yes Status: Acute Assessment and plan: Patient is a known type II diabetic, with A1c of 6.7 upon admission. Glucoses have been more controlled after increase of Levemir. Plan: - Continue ACHS glucose checks - Continue low-dose inpatient sliding scale - Continue Levemir 10 units to twice a day. Qualifiers: Diabetes mellitus complication status: with skin complications Diabetes mellitus complication detail: with other skin ulcer Diabetes mellitus intermediate insulin use: without supervisor lump room use Qualified Code(s): E11.622 - Type 2 diabetes mellitus with other skin ulcer - Subjective Interval history: Mr. Lewis 41M has been seen and evaluated this morning patient bedside. He is alert awake in no acute distress and has minimal pain. He feels that his right foot is much better and that he could tolerate outpatient antibiotic therapy for continued care. He denies any nausea vomiting diarrhea or constipation. No abdominal discomforts since starting antibiotics. He is tolerating by mouth intake. He has no pain in his right foot he feels that he can move his toes without discomfort. - Constitutional Vitals: Temp Pulse Resp BP Pulse Ox 98.1 F 89 16 107/71 98 12/15/16 08:20 12/15/16 08:20 12/15/16 08:20 12/15/16 08:20 12/15/16 08:20 General appearance: Present: A&O X 3, pleasant, no acute distress - Head Head exam: Present: atraumatic, normocephalic - Eye Eye exam: Present: PERRL, conjuntiva pink, sclera anicteric Pupils: Present: PERRL - Neck Neck exam general surgery: Present: supple, trachea midline. Absent: lymphadenopathy - Respiratory Respiratory exam: Present: CTAB. Absent: accessory muscle use, rales, rhonchi, wheezes - Cardiovascular Cardiovascular exam: Present: RRR, +S1, +S2. Absent: diastolic murmur, gallop, rubs, systolic murmur - GI/Abdominal GI/Abdominal exam: Present: normal bowel sounds, soft, no peritoneal signs. Absent: distended, tenderness - Extremities Exam Additional comments: Right lower extremity demonstrates erythema and edema of the right foot. Edema is slightly improved from yesterday. Erythema is slightly improved from yesterday. There is new blister formation between digits 4 and 5 with serous drainage. There are healed lesions to the cuticles of digits 3 and 4 of the right foot. Left lower extremity has Armando bandages wrapping around the distal portion above the ankle. Patient has full range of motion of the ankle joint and knee joint. No signs of erythema or edema surrounding. Patient has pes cavus left foot. Internal Medicine: Result - Labs CBC & Chem 7: 12/15/16 04:16 12/15/16 04:16 Labs: Short CBC 12/15/16 Range/Units 04:16 WBC 11.1 (4.3-11.1) K/mcL Hgb 10.7 L (12.9-16.9) g/dL Hct 31.6 L (37.5-50.1) % Plt Count 297 (140-400) K/mcL Neutrophils # 7.6 (1.6-8.9) K/mcL BMP 12/15/16 04:16 Sodium 139 Potassium 3.5 Chloride 105 Carbon Dioxide 27 BUN 8 Creatinine 0.78 Glucose 137 H Calcium 8.5 L Consult Discharge Plan - Plan Referrals: Barby Godwin MD [Primary Care Provider] - <Aly Mcghee - Last Filed: 12/15/16 18:17> Date of Encounter: 12/15/16 - Constitutional Vitals: Temp Pulse Resp BP Pulse Ox 98 F 86 16 122/82 95 12/15/16 12:05 12/15/16 12:05 12/15/16 12:05 12/15/16 12:05 12/15/16 12:05 Internal Medicine: Result - Labs CBC & Chem 7: 12/15/16 04:16 12/15/16 04:16 Labs: Short CBC 12/15/16 Range/Units 04:16 WBC 11.1 (4.3-11.1) K/mcL Hgb 10.7 L (12.9-16.9) g/dL Hct 31.6 L (37.5-50.1) % Plt Count 297 (140-400) K/mcL Neutrophils # 7.6 (1.6-8.9) K/mcL BMP 12/15/16 04:16 Sodium 139 Potassium 3.5 Chloride 105 Carbon Dioxide 27 BUN 8 Creatinine 0.78 Glucose 137 H Calcium 8.5 L - Impressions Impressions Foot MRI 12/15/16 13:08 IMPRESSION: 1. MRI signal characteristics in the 4th and 5th metatarsal heads, 4th proximal phalanx, and throughout the 5th digit compatible with noninfectious reactive osteitis. Early osteomyelitis not excluded. No osseous erosion or confluent decreased T1 signal to confirm osteomyelitis. 2. 2.1 x 1.3 x 0.9 cm fluid collection dorsal to and encasing the 4th proximal phalanx and 4th metatarsal head with overlying dorsal skin blister. 3. 1.1 x 1 x 0.4 cm fluid collection plantar to the 5th metatarsal head. 4. Small nonspecific 4th and 5th MTP joint effusions. 5. Mild 4th extensor tenosynovitis. D/ / Star López MD / Star López MD Interpreting Provider: Star López MD - Attending Attestation I examined this patient and my medical decision-making was reviewed with the Resident Physician, Dr Trinidad. I agree with the documented findings, disposition and treatment plan as described except to the extent set forth below. On examination his no acute distress. Heart is regular S1-S2 no murmurs. Lungs are clear. Abdomen is soft. Right foot demonstrates soft tissue swelling and blister formation as described above. Plan: continue with vancomycin. Topical miconazole. Consult podiatry. He is at high risk for morbidity and mortality and complications due to treatment with IV vancomycin which requires blood level monitoring for toxicity.
[2016-12-15] MEDS: Insulin LISPRO 300 UNITS/3 ML VIAL SQ SCH ×4 (11:12→23:41)
[2016-12-15] MEDS: Miconazole 2% cream 118 GM TUBE TP SCH (11:13)
[2016-12-15] MEDS: Insulin DETEMIR 100 UNIT/ML X5UNITS SQ SCH ×2 (11:13→23:39)
--- NOTE | 2016-12-15 13:07 | Podiatry Consult Note ---
Date of Encounter: 12/16/16 Time of Encounter: 12:30 Assessment and Plan (1) Callus of foot Current visit: No Status: Acute (2) Cellulitis of foot Current visit: Yes Status: Acute Cellulitis to left foot with a hemmorhaged callused lesion to sub #5 metatarsal head right foot and superficial wound to the interdigital webspace of toe #4 and #5. Will order MRI of right foot today to r/o osteomyelitis, abscess, fluid collection. Agree with present antibiotic therapy. CRP: 270. ESR ordered. Wound care to include cleansing right foot daily with mild soap and water, apply betadine to the interdigital webspace between toes #4 and #5 of the right foot twice daily with kerlix. Will continue to follow patient closely. (3) Sepsis Current visit: Yes Status: Acute Qualifiers: Sepsis type: sepsis due to unspecified organism Qualified Code(s): A41.9 - Sepsis, unspecified organism (4) Ulcer of left lower leg Current visit: Yes Status: Acute Continue wound care as ordered with Santyl ointment daily. Keep pressure away from left calf. 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 Lewis is a 41 year old male admitted to [place] for cellulitis of the right foot. Patient has a medical history significant for diabetes mellitus and a developmental delay. Patients mother at bedside. Patient has a wound to the left calf that started in August after the patient developed a rash and cellulitis. Patient is being treated by Dr. Bergeron in wound care and mom is performing daily dressing changes with Santyl ointment. Ulceration to left calf is healing. Per mother patient was evaluated 2 weeks ago and wound care by Dr. Bergeron after patient bumped toes #3 and #4 on his bed of the right foot. Mother states 4 days ago noticed a small rash to the right foot with increased redness and swelling over the next few days. Patient had right calf pain upon admission. Patient denies any pain currently. No complaints of fever, chills, nausea, vomiting, or flu like symptoms. A venous duplex of the right lower extremity was performed upon admission along with an x-ray of the right foot. Venouse duplex within normal limits and negative for a DVT. X-ray of right foot negative for fracture or dislocation. WBC upon admission 11.9 and 11.1 today. CRP: 270 Past Med Surg Social Fam HX - Past Medical History Medical history: diabetes, other Psychiatric history: anxiety - Past Surgical History Surgical History: no surgical history - Social History Smoking Status: Never smoker Smokeless Tobacco Status: No Alcohol use: none Drug use: none - Family History Mother Living Status: Still Living Hx Family Endocrine Disorder: Yes Father Living Status: Cause of : [place] Hx Family Cardiac Disorders: Yes Medications and Allergies Metformin HCl [Fortamet] 1,500 mg PO DAILY 09/23/16 [History] Collagenase Oint [Santyl] 1 appl TP DAILY 12/13/16 [History] Allergies No Known Allergies Allergy (Verified 09/01/16 19:41) All Systems Reviewed: A 10-system review of systems was performed and is negative for pertinent findings except as documented above in the HPI. Physical Exam - Constitutional Vitals: Temp Pulse Resp BP Pulse Ox 98 F 86 16 122/82 95 12/15/16 12:05 12/15/16 12:05 12/15/16 12:05 12/15/16 12:05 12/15/16 12:05 General appearance: cooperative, no acute distress Exam: Vascular: pedal pulses palpable 2+/4, no dependent rubor, no pallor, no cyanosis , no calf pain with manual compression. Ulcer: Superficial ulceration to the left calf measuring 4 cm in length x 2 cm in width, base of wound with 95 % granulation tissue and 5% fibrous tissue, no periwound erythema, no probe to bone, no streaking, no tunneling, no sinus tracts, no undermining. Wound edges connected. No purulent drainage. - Expanded Lower Extremities Exam Foot/Toe exam: Present: erythema (Erythema to the dorsum of the right foot and midfoot plantar aspect, 2+ swelling, hemmorhaged callused lesion to sub #5 metatarsal head right foot with superficial wound to the interdigital webspace between toe #4 and #5 right foot with serous drainage. ) Results - Labs Result Diagrams: 12/16/16 04:32 12/16/16 04:32 Labs: Abnormal lab results RBC 3.66 M/mcL (4.19-5.50) L 12/15/16 04:16 Hgb 10.7 g/dL (12.9-16.9) L 12/15/16 04:16 Hct 31.6 % (37.5-50.1) L 12/15/16 04:16 MPV 9.1 fL (9.4-12.4) L 12/15/16 04:16 Glucose 137 mg/dL (70-99) H 12/15/16 04:16 POC Glucose 193 (58-89) H 12/15/16 12:17 Hemoglobin A1c 6.7 % (-5.6) H 12/12/16 16:12 Calcium 8.5 mg/dL (8.6-10.8) L 12/15/16 04:16 C-Reactive Protein 270 mg/L (Less than 5) H 12/12/16 16:12 Albumin 3.1 g/dL (3.5-5.0) L 12/12/16 16:12 Globulin 4.7 g/dL (2.4-3.5) H 12/12/16 16:12 Albumin/Globulin Ratio 0.7 (1.1-2.2) L 12/12/16 16:12 Vancomycin Trough 7.4 mcg/mL (10-20) L 12/14/16 04:05 H & H 12/15/16 Range/Units 04:16 Hgb 10.7 L (12.9-16.9) g/dL Hct 31.6 L (37.5-50.1) % All other labs normal. Consult Discharge Plan - Plan Referrals: Barby Godwin MD [Primary Care Provider] -
[2016-12-16] MEDS: Vancomycin 1,750 MG in D5% in Water 500 ML IVPB SCH ×2 (04:08→17:34)
[2016-12-16 04:49] LABS: Basophils % 0.4 %; Eosinophils # 0.4 K/mcL (0.0-0.6); Eosinophils % 4.7 %; Hematocrit 30.6 % (37.5-50.1); Hemoglobin 10.4 g/dL (12.9-16.9); Immature Granulocytes % 0.3 % (0-4); Lymphocytes # 1.8 K/mcL (0.6-4.6); Lymphocytes % 19.4 %; Mean Corpuscular Hemoglobin 29.2 pg (28.0-33.3); Mean Platelet Volume 8.9 fL (9.4-12.4); Monocytes # 0.9 K/mcL (0.0-1.3); Monocytes % 9.6 %; Platelet Count 300 K/mcL (140-400); Red Blood Count 3.56 M/mcL (4.19-5.50); Red Cell Distribution Width 12.5 % (11.5-14.5); Segmented Neutrophils % 65.6 %
[2016-12-16 05:03] LABS: Alanine Aminotransferase 7 Units/L (0-55); Albumin 2.2 g/dL (3.5-5.0); Albumin/Globulin Ratio 0.6 (1.1-2.2); Alkaline Phosphatase 74 Units/L (38-126); Aspartate Amino Transferase 7 Units/L (5-34); BUN/Creatinine Ratio 14 (6-26); Bilirubin,Total 0.5 mg/dL (0.2-1.2); Blood Urea Nitrogen 11 mg/dL (8-26); Calcium 8.7 mg/dL (8.6-10.8); Carbon Dioxide 29 mEq/L (19-29); Chloride 105 mEq/L (98-109); Globulin 3.9 g/dL (2.4-3.5); Glucose 128 mg/dL (70-99); Osmolality,Calculated 289 (280-300); Potassium 3.5 mEq/L (3.5-4.5); Sodium 139 mEq/L (136-145); Total Protein 6.1 g/dL (6.0-8.3); eGFR For African Americans > 60 (> 60); eGFR For Non-African Americans > 60 (> 60)
[2016-12-16] MEDS: *HR* Enoxaparin 40 MG/0.4 ML SYRINGE SQ SCH (06:35)
[2016-12-16] MEDS: Insulin DETEMIR 100 UNIT/ML X5UNITS SQ SCH ×2 (08:53→21:20)
[2016-12-16] MEDS: Insulin LISPRO 300 UNITS/3 ML VIAL SQ SCH ×2 (08:56→13:55)
--- NOTE | 2016-12-16 09:47 | Podiatry Consult Note ---
Date of Encounter: 12/16/16 Time of Encounter: 09:00 Assessment and Plan (1) Abscess of right foot Current visit: Yes Status: Acute I had a thorough review with patient and his mother regarding his condition, my findings and recommendations for treatment. We discussed his right foot infection and the abscess in the foot which was found on the MRI. We discussed incision and drainage and excision debridement of the hemorrhagic callus of the right foot. Will likely pack open the wound. Risks vs benefits potential complications and consequences of the procedure was discussed with the patient and his mother. All of their questions were answered. Informed consent was signed. They understood he could require further surgery in the future and possibly lose his toes/partial foot/leg due to the infection. c/w antibiotics. c /w current wound care on the left calf. NPO. third mate to OR for incision and drainage right foot. (2) Cellulitis of foot Current visit: Yes Status: Acute (3) Type 2 diabetes mellitus Current visit: Yes Status: Acute Qualifiers: Diabetes mellitus complication status: with skin complications Diabetes mellitus complication detail: with other skin ulcer Diabetes mellitus shovel logger insulin use: without shovel logger use Qualified Code(s): E11.622 - Type 2 diabetes mellitus with other skin ulcer (4) Ulcer of left lower leg Current visit: Yes Status: Acute Qualifiers: Non-pressure ulcer stage: limited to breakdown of skin Qualified Code(s): L97.921 - Non-pressure chronic ulcer of unspecified part of left lower leg limited to breakdown of skin (5) Callus of foot Current visit: No Status: Acute (6) Foot ulcer, right Current visit: Yes Status: Acute Qualifiers: Non-pressure ulcer stage: limited to breakdown of skin Qualified Code(s): L97.511 - Non-pressure chronic ulcer of other part of right foot limited to breakdown of skin History of Present Illness HPI: Mr. Lewis is a 41 year old diabetic male admitted to with cellulitis of the right foot and started on IV antibiotics. Patient has a developmental delay. The patient's mother is bedside. She states they found out he was a diabetic in August and he was started on medication. Patient has a wound on the left calf that started in August after the patient developed a rash and cellulitis. Patients mother states this wound is doing much better. Patient is being treated by Dr. Bergeron in wound care and mom is performing daily dressing changes with Santyl ointment on the left. 2 weeks ago the patient bumped toes #3 and # 4 on his bed of the right foot. Mother stated about 5 days ago noticed a small rash to the right foot with increased redness and swelling over the next few days. He says his right foot has a throbbing pain. Patient denies any pain currently. Denied f/c/n/v/sob/cp. Venous doppler on admission was negative. xray done on admission. MRI now done on the right foot as he was not signficantly improving on antibiotics. Past Med Surg Social Fam HX - Past Medical History Medical history: diabetes, other Psychiatric history: anxiety - Past Surgical History Surgical History: no surgical history - Social History Smoking Status: Never smoker Smokeless Tobacco Status: No Alcohol use: none Drug use: none - Family History Mother Living Status: Still Living Hx Family Endocrine Disorder: Yes Father Living Status: Cause of : [place] Hx Family Cardiac Disorders: Yes Medications and Allergies Metformin HCl [Fortamet] 1,500 mg PO DAILY 09/23/16 [History] Collagenase Oint [Santyl] 1 appl TP DAILY 12/13/16 [History] Allergies No Known Allergies Allergy (Verified 09/01/16 19:41) All Systems Reviewed: A 10-system review of systems was performed and is negative for pertinent findings except as documented above in the HPI. - Constitutional Constitutional: as per HPI - Cardiovascular Cardiovascular: as per HPI - Respiratory Respiratory: as per HPI - Musculoskeletal Musculoskeletal: as per HPI, other (right foot pain) Physical Exam - Constitutional Vitals: Temp Pulse Resp BP Pulse Ox 98 F 82 15 112/75 93 12/16/16 06:58 12/16/16 06:58 12/16/16 06:58 12/16/16 06:58 12/16/16 06:58 General appearance: cooperative, no acute distress - Head Head exam: Present: normocephalic - ENT ENT exam: Present: mucous membranes moist - Cardiovascular Cardiovascular exam: Present: +S1, +S2 - Expanded Lower Extremities Exam Foot/Toe exam: Present: erythema, swelling, tenderness - Ankle & Foot Exam: well nourished male in no acute distress Vascular: pedal pulses palpable 2+/4, no necrosis, no cyanosis, no calf pain with manual compression. Ulcer: Superficial ulceration to the left calf measuring 4 cm in length x 2 cm in width, base of wound with 95 % granulation tissue and 5% fibrous tissue, no periwound erythema, no probe to bone, no streaking, no tunneling, no sinus tracts, no undermining. Wound edges epithelial. No purulent drainage. Foot/Toe exam: Present: erythema (Erythema to the dorsum of the right foot and midfoot plantar aspect, edema, hemmorhagic hyperkeratosis callus lesion submet 5 right foot with superficial wound to the interdigital webspace between toe #4 and #5 right foot with serous drainage and maceration. sensation intac to light touch. pain with compression of the dorsal lateral foot and palpation over the 4th MTP and 5th MTP joint. pain elicited with movement of the MTP joints 4,5. ) Results - Labs Result Diagrams: 12/16/16 04:32 12/16/16 04:32 Labs: Abnormal lab results RBC 3.56 M/mcL (4.19-5.50) L 12/16/16 04:32 Hgb 10.4 g/dL (12.9-16.9) L 12/16/16 04:32 Hct 30.6 % (37.5-50.1) L 12/16/16 04:32 MPV 8.9 fL (9.4-12.4) L 12/16/16 04:32 ESR 48 mm/hr (0-10) H 12/15/16 13:22 Glucose 128 mg/dL (70-99) H 12/16/16 04:32 POC Glucose 164 (58-89) H 12/16/16 08:35 Hemoglobin A1c 6.7 % (-5.6) H 12/12/16 16:12 C-Reactive Protein 270 mg/L (Less than 5) H 12/12/16 16:12 Albumin 2.2 g/dL (3.5-5.0) L 12/16/16 04:32 Globulin 3.9 g/dL (2.4-3.5) H 12/16/16 04:32 Albumin/Globulin Ratio 0.6 (1.1-2.2) L 12/16/16 04:32 Vancomycin Trough 7.4 mcg/mL (10-20) L 12/14/16 04:05 H & H 12/16/16 Range/Units 04:32 Hgb 10.4 L (12.9-16.9) g/dL Hct 30.6 L (37.5-50.1) % All other labs normal. - Diagnostic results Ankle/Foot x-ray: image reviewed Ankle/Foot MRI: image reviewed Consult Discharge Plan - Plan Referrals: Barby Godwin MD [Primary Care Provider] -
--- NOTE | 2016-12-16 11:11 | Internal Med Progress Note ---
<Dimas Trinidad - Last Filed: 12/16/16 13:44> Date of Encounter: 12/16/16 Time of Encounter: 08:00 - Assessment and plan (1) Cellulitis of foot Current Visit: Yes Status: Acute Assessment and plan: Cellulitis of right foot up to mid crespo. On admission, Patient was on broad- spectrum antibiotics including vancomycin and Zosyn. He was de-escalated to only Vancomycin 12/13. Possible sources may be secondary to injury to the third and fourth toenails in the setting of type 2 diabetes and fungal infection. Patient also has a lesion on the plantar surface callus that may be a source of infection. - 3 view x-ray of the right foot does not demonstrate any bony fractures, there is soft tissue edema. 12/16/2016: Patient's symptoms have improved, patient for looks slightly improved from erythema and edema. Continues to have blistery lesion between his fourth and fifth digits. He is planned to undergo I&D of foot abscess, per podiatry. Plan: - Will continue antibiotic coverage with Vancomycin. Coverage for staph. Antibiotic coverage to further be D escalated post procedure. - Topical fungal coverage as patient appears to have right foot fungal infection. - Controlled type 2 diabetes for improved healing - Podiatry is following. (2) Callus of foot Current Visit: No Status: Acute Assessment and plan: Patient has callus of bilateral feet with pes cavus. Patient is a type II diabetic with calluses of both feet and the lesion on the right callus. - Currently evaluated by podiatry inpatient - Patient will require podiatry follow-up outpatient for foot care. (3) Ulcer of left lower leg Current Visit: Yes Status: Acute Assessment and plan: Chronic ulcer of the left lower extremity, not infected. currently continue wound care. - Continue Armando wrap and wound care. Qualifiers: Non-pressure ulcer stage: limited to breakdown of skin Qualified Code(s): L97.921 - Non-pressure chronic ulcer of unspecified part of left lower leg limited to breakdown of skin (4) Type 2 diabetes mellitus Current Visit: Yes Status: Acute Assessment and plan: Patient is a known type II diabetic, with A1c of 6.7 upon admission. Glucoses have been more controlled after increase of Levemir. Plan: - Continue [facility] glucose checks - Continue low-dose inpatient sliding scale - Continue Levemir 10 units to twice a day. Qualifiers: Diabetes mellitus complication status: with skin complications Diabetes mellitus complication detail: with other skin ulcer Diabetes mellitus intermediate teacher insulin use: without halfway use Qualified Code(s): E11.622 - Type 2 diabetes mellitus with other skin ulcer - Subjective Interval history: Mr. Lewis 41M has been seen and evaluated this morning patient bedside. He is alert awake in no acute distress and has minimal pain. He is nervous for his procedure this morning. He complains of right foot discomfort but this is improved compared to the previous days. He denies any nausea, vomiting, diarrhea constipation since starting antibiotic coverage. He denies any pain with movement of the ankle joints or toes. - Constitutional Vitals: Temp Pulse Resp BP Pulse Ox 97.9 F 85 15 106/71 94 12/16/16 10:54 12/16/16 10:54 12/16/16 10:54 12/16/16 10:54 12/16/16 10:54 General appearance: Present: A&O X 3, pleasant, no acute distress - Head Head exam: Present: atraumatic, normocephalic - Eye Eye exam: Present: PERRL, conjuntiva pink, sclera anicteric Pupils: Present: PERRL - ENT ENT exam: Present: mucous membranes moist - Neck Neck exam general surgery: Present: supple, trachea midline. Absent: lymphadenopathy - Respiratory Respiratory exam: Present: CTAB. Absent: accessory muscle use, rales, rhonchi, wheezes - Cardiovascular Cardiovascular exam: Present: RRR, +S1, +S2. Absent: diastolic murmur, gallop, rubs, systolic murmur - GI/Abdominal GI/Abdominal exam: Present: normal bowel sounds, soft, no peritoneal signs. Absent: distended, tenderness - Extremities Exam Additional comments: Right lower extremity demonstrates erythema and edema of the right foot. Right foot is wraps with bandaging. What is visible appears to demonstrate improvement in erythema and edema. There is new blister formation between digits 4 and 5 with serous drainage. There are healed lesions to the cuticles of digits 3 and 4 of the right foot. Patient retains sensation and appropriate capillary refill. Left lower extremity has Armando bandages wrapping around the distal portion above the ankle. Patient has full range of motion of the ankle joint and knee joint. No signs of erythema or edema surrounding. Patient has pes cavus left foot. - Neurological Exam Neurological exam: Present: alert, oriented X3, no focal deficits. Absent: pronater drift, facial droop, speech deficit - Psychiatric Psychiatric exam: Present: normal affect, normal mood Internal Medicine: Result - Labs CBC & Chem 7: 12/16/16 04:32 12/16/16 04:32 Labs: Short CBC 12/16/16 Range/Units 04:32 WBC 9.2 (4.3-11.1) K/mcL Hgb 10.4 L (12.9-16.9) g/dL Hct 30.6 L (37.5-50.1) % Plt Count 300 (140-400) K/mcL Neutrophils # 6.0 (1.6-8.9) K/mcL BMP 12/16/16 04:32 Sodium 139 Potassium 3.5 Chloride 105 Carbon Dioxide 29 BUN 11 Creatinine 0.79 Glucose 128 H Calcium 8.7 Liver Function 12/16/16 Range/Units 04:32 Total Bilirubin 0.5 (0.2-1.2) mg/dL AST 7 (5-34) Units/L ALT 7 (0-55) Units/L Alkaline Phosphatase 74 (38-126) Units/L Albumin 2.2 L (3.5-5.0) g/dL - Impressions Impressions Foot MRI 12/15/16 13:08 IMPRESSION: 1. MRI signal characteristics in the 4th and 5th metatarsal heads, 4th proximal phalanx, and throughout the 5th digit compatible with noninfectious reactive osteitis. Early osteomyelitis not excluded. No osseous erosion or confluent decreased T1 signal to confirm osteomyelitis. 2. 2.1 x 1.3 x 0.9 cm fluid collection dorsal to and encasing the 4th proximal phalanx and 4th metatarsal head with overlying dorsal skin blister. 3. 1.1 x 1 x 0.4 cm fluid collection plantar to the 5th metatarsal head. 4. Small nonspecific 4th and 5th MTP joint effusions. 5. Mild 4th extensor tenosynovitis. D/ / Star López MD / Star López MD Interpreting Provider: Star López MD Consult Discharge Plan - Plan Referrals: Barby Godwin MD [Primary Care Provider] - 12/25/16 11:00 am <Aly Mcghee - Last Filed: 12/16/16 18:44> Date of Encounter: 12/16/16 - Constitutional Vitals: Temp Pulse Resp BP Pulse Ox 98 F 77 18 117/80 97 12/16/16 17:07 12/16/16 17:33 12/16/16 17:33 12/16/16 17:33 12/16/16 17:33 Internal Medicine: Result - Labs CBC & Chem 7: 12/16/16 04:32 12/16/16 04:32 Labs: Short CBC 12/16/16 Range/Units 04:32 WBC 9.2 (4.3-11.1) K/mcL Hgb 10.4 L (12.9-16.9) g/dL Hct 30.6 L (37.5-50.1) % Plt Count 300 (140-400) K/mcL Neutrophils # 6.0 (1.6-8.9) K/mcL BMP 12/16/16 04:32 Sodium 139 Potassium 3.5 Chloride 105 Carbon Dioxide 29 BUN 11 Creatinine 0.79 Glucose 128 H Calcium 8.7 Liver Function 12/16/16 Range/Units 04:32 Total Bilirubin 0.5 (0.2-1.2) mg/dL AST 7 (5-34) Units/L ALT 7 (0-55) Units/L Alkaline Phosphatase 74 (38-126) Units/L Albumin 2.2 L (3.5-5.0) g/dL - Attending Attestation I examined this patient and my medical decision-making was reviewed with the Resident Physician, Dr. Trinidad. I agree with the documented findings, disposition and treatment plan as described except to the extent set forth below. Patient appears in no acute distress awake alert oriented. Heart is regular rate and rhythm S1-S2. Lungs are clear. Plan: Continue broad-spectrum IV antibiotics. Will cover for osteomyelitis. The patient is to go to the OR today for I&D of the right foot wound. We will await culture and sensitivities. He is at high risk for morbidity and mortality complications due to vancomycin which requires intensive blood level monitoring for toxicity and therapeutic effect.
[2016-12-16] MEDS: Miconazole 2% cream 118 GM TUBE TP SCH ×3 (13:56→21:19)
--- NOTE | 2016-12-16 14:30 | Anesthesia Evaluation PreOp ---
Date of Encounter: 12/16/16 Time of Encounter: 14:28 - Past History Planned Operation: I & D Right Foot Cardiac History: Denies any Significant Hx Pulmonary History: Denies Any Significant HX HEARING AID CONSULTANT History: Denies Any Significant HX Other Medical History: Diabetes Type II Anesthesia History: Past Anesthesia (no prior surgery) Alcohol Use: none Drug use: none Medications and Allergies Metformin HCl [Fortamet] 1,500 mg PO DAILY 09/23/16 [History] Collagenase Oint [Santyl] 1 appl TP DAILY 12/13/16 [History] Allergies No Known Allergies Allergy (Verified 09/01/16 19:41) - Meds/Allergy Pre-op Review Medications Reviewed: Yes Allergies Reviewed: Yes Beta Blockers on Current Med List: No Anesthesia Results - Labs 12/16/16 04:32 12/16/16 04:32 Anesthesia Exam Vital Signs/O2 Sat/Glucose, Most Recent Temp Pulse Resp BP Pulse Ox 97.9 F 85 15 106/71 94 12/16/16 10:54 12/16/16 10:54 12/16/16 10:54 12/16/16 10:54 12/16/16 10:54 Blood Glucose* 85 Height: 6'3''/1.91 m Weight: 207 lbs/94.133 kg NPO (# of Hours): 8 Pain Scale: 0 Pain Scale Used: Numeric (1 - 10) - HEENT Pupil (Motor): EOMI Mallampati: II Teeth: Normal Oral Opening: Greater than 3 - HEARING AID CONSULTANT LOC: Oriented HEARING AID CONSULTANT Motor: Normal RUE, Normal LUE, Normal RLE, Normal LLE, Normal Face HEARING AID CONSULTANT Sensory: Normal: RUE, LUE, LLE, Face, Deficit: RLE - Cardiac Rhythm: Regular Murmur: None - Pulmonary Breath Sounds: bilateral Clear Respiratory Effort: Symmetrical Anesthesia Assess/Plan ASA Score: 2 Modified F[place]on Scale for Level of Consciousness: Cooperative, oriented, and tranquil Anesthetic Plan: General Monitoring Plan: Standard Monitors Recovery Plan: PACU
[2016-12-16] MEDS ORDERED: *HR* Midazolam HCl 2 MG/2 ML VIAL ONE (14:42)
[2016-12-16] MEDS ORDERED: *HR* FentaNYL (PF) 100 MCG/2 ML VIAL ONE (14:42)
[2016-12-16] MEDS ORDERED: *HR* Propofol 200 MG/20 ML VIAL IVP ONE (14:42)
[2016-12-16] MEDS ORDERED: Lidocaine -MPF 2% 2 ML VIAL ONE (14:43)
[2016-12-16] MEDS ORDERED: Ondansetron 4 MG/2 ML VIAL ONE (14:43)
[2016-12-16] MEDS ORDERED: Dexamethasone 4 MG/ML VIAL ONE (14:43)
[2016-12-16] MEDS ORDERED: Lidocaine 1% 20 ML MDV ONE (14:57)
[2016-12-16] MEDS ORDERED: *HR* HYDROmorphone (PF) 1 MG/ML SYRINGE IVP PRN (15:34)
[2016-12-16] MEDS ORDERED: *HR* Promethazine 25 MG/ML VIAL IVP PRN ×2 (15:34→16:52)
--- NOTE | 2016-12-16 16:09 | Orthopedic Operative Note ---
Date of procedure: 12/16/16 Pre-op diagnosis: right diabetic foot infection, abscess right foot Post-op diagnosis: same Procedure: 12/16/16 16:08 incision and drainage right foot excisional debridement right foot ulceration Implants: none Complications: none Anesthesia: other (general) Local Anesthetics: 0.25% Sensorcaine HCL SubQ (cc), 1% Lidocaine HCL SubQ (cc) Surgeon: Guerrero Herndon Estimated blood loss (cc): 10 Specimen: right foot culture sent for aerobic and anerobic culture Condition: stable Disposition: PACU
--- NOTE | 2016-12-16 16:23 | Anesthesia Evaluation Post Op ---
Date of Encounter: 12/16/16 Time of Encounter: 16:23 - Vital Signs Vital Signs: Vital Signs/O2 Sat, Most Current Temp Pulse Resp BP Pulse Ox 98.3 F 70 12 95/62 98 12/16/16 15:52 12/16/16 16:12 12/16/16 16:12 12/16/16 16:12 12/16/16 16:12 - Lungs Lungs: Clear Ascult./Percussion - Airway Airway: Non-obstructed - Cardiovascular Regular Rate - Mental Status Mental Status: Alert & Oriented, Answers Appropriately - Pain Pain Scale: 0 - Nausea Vomiting Nausea Vomiting: Not Present - Hydration Hydration: Ice chips, Has not voided - Discharge PostOp Status: Transfer Patient to floor
[2016-12-16] MEDS ORDERED: D5% in Water 1,000 ML IVC PRN (16:52)
[2016-12-16] MEDS ORDERED: *HR* HYDROcodone/Acet 5/325 mg TABLET PO PRN (16:52)
[2016-12-16] MEDS ORDERED: Dextrose Gel 15 GM PO PRN ×2 (16:52)
[2016-12-16] MEDS ORDERED: Ibuprofen 400 MG TABLET PO PRN (16:52)
[2016-12-16] MEDS ORDERED: *HR* Dextrose 50 % in Water (Syg) 50 ML SYRINGE IVP PRN (16:52)
[2016-12-16] MEDS ORDERED: Naloxone 0.4 MG/ML INJ IVP PRN (16:52)
--- NOTE | 2016-12-16 17:11 | Operative Note ---
Date of procedure: 12/16/16 Pre-op diagnosis: 1.right diabetic foot infection 2.abscess right foot 3. right foot wound Post-op diagnosis: same Procedure: Incision and drainage of right foot, excisional debridement of right foot wound Complications: none Anesthesia: other (general) Surgeon: Guerrero Herndon Estimated blood loss (cc): 10 Specimen: right foot culture Condition: stable Disposition: PACU Procedure in Detail: Indication: 41-year-old male who has a developmental delay and admitted to the hospital with a right diabetic foot infection which was not responding to IV antibiotics. X-rays were negative. MRI showed two abscesses in the right foot. Patient has a 1cmx0.7cmx0.3cm wound submet 5 with hyperkeratosis. Decision was made to move forward with surgical intervention for an incision and drainage and excisional debridement of the wound. Patient and mother understood he could require further surgical intervention and it is a possibility he could lose part of his foot. No guarantees were made as to the outcome. 1% lidocaine plain and 0.25% Marcaine plain were injected into the patient's right foot. The right foot was scrubbed prepped and draped in the usual sterile fashion and the following procedures began. Procedure: Excisional debridement right foot wound and right foot incision and drainage. Attention was directed to the patient's right foot were submitted 5 was a hyperkeratosis with hemorrhagic lesion underlying. A #15 blade was used to debride the hyperkeratosis and expose the underlying ulceration which was excisionally debrided into the subcutaneous tissue until there was a healthy bleeding granular base. The area was probed and explored this wound did not probe to bone or deep soft tissue capsule. Attention was then directed to the fourth interspace where a wound was present between the fourth and fifth digits and abscess at been identified adjacent to the fourth metatarsal phalangeal joint. An incision was made with a #15 blade approximately 5 cm in length and deepened through blunt dissection. The area was probed and explored purulent drainage was expressed surrounding the MTP joint. It should be noted that the bone was felt to be of hard quality. aerobic and anaerobic cultures were taken and sent to microbiology. The surgical site was flushed with copious amounts of normal sterile saline. Attention was then directed to the fifth metatarsal area where a separate incision was made using a #15 blade approximately 4 cm in length. The area was probed and explored plantarly and dorsally. Scant purulent drainage was expressed. The area was further explored and no further purulence could be expressed. No devitalized tissue was present at either site. After thoroughly flushing both sites they were again probed and no purulence expressed. The sites were deemed adequate for partial closure which was performed with 3-0 prolene and the wounds were packed open. Post-operative bandaging included saline moistened 4x4 gauze, 4x4 gauze, kerlix and an ALEX wrap. The patient tolerated the anesthesia and the procedure well and was escorted to the recovery room with vital signs stable and vascular status intact to the right foot noted by instant capillary refill time to all digits of the right foot. He transferred to the recovery room and then the floor where he will continue IV antibiotics.
[2016-12-16] MEDS ORDERED: Insulin LISPRO 300 UNITS/3 ML VIAL SQ SCH (21:00)
[2016-12-17] MEDS: *HR* Enoxaparin 40 MG/0.4 ML SYRINGE SQ SCH (05:55)
[2016-12-17] MEDS: Vancomycin 1,750 MG in D5% in Water 500 ML IVPB SCH ×2 (05:55→17:05)
[2016-12-17] MEDS ORDERED: SODIUM CHLORIDE IRRIGATION IR ONE (06:00)
[2016-12-17] MEDS ORDERED: BACITRACIN 50000 UNIT IR ONE (06:00)
[2016-12-17] MEDS ORDERED: Insulin LISPRO 300 UNITS/3 ML VIAL SQ SCH (07:30)
[2016-12-17] MEDS: Insulin DETEMIR 100 UNIT/ML X5UNITS SQ SCH ×2 (08:03→20:59)
[2016-12-17] MEDS: Miconazole 2% cream 118 GM TUBE TP SCH ×2 (08:05→21:00)
[2016-12-17] MEDS: Insulin LISPRO 300 UNITS/3 ML VIAL SQ SCH ×3 (11:33→20:58)
--- NOTE | 2016-12-17 11:36 | Internal Med Progress Note ---
<Dimas Trinidad - Last Filed: 12/17/16 15:02> Date of Encounter: 12/17/16 Time of Encounter: 11:36 - Assessment and plan (1) Cellulitis of foot Current Visit: Yes Status: Acute Assessment and plan: Cellulitis of right foot up to mid crespo. On admission, Patient was on broad- spectrum antibiotics including vancomycin and Zosyn. He was de-escalated to only Vancomycin 12/13. Possible sources may be secondary to injury to the third and fourth toenails in the setting of type 2 diabetes and fungal infection. Patient also has a lesion on the plantar surface callus that may be a source of infection. - 3 view x-ray of the right foot does not demonstrate any bony fractures, there is soft tissue edema. 12/16/2016: Patient's symptoms have improved, patient for looks slightly improved from erythema and edema. Continues to have blistery lesion between his fourth and fifth digits. He is planned to undergo I&D of foot abscess, per podiatry. 12/17/2016: Post IND of abscesses and right foot. Erythema and edema improving. Concern for osteomyelitis patient is on vancomycin. Wound cultures collected with results pending. Plan: - Will continue antibiotic coverage with Vancomycin. Coverage for staph. Will require PICC line and total of 6 weeks outpatient antibiotic coverage - Topical fungal coverage as patient appears to have right foot fungal infection. - Controlled type 2 diabetes for improved healing - Podiatry is following. (2) Callus of foot Current Visit: No Status: Acute Assessment and plan: Patient has callus of bilateral feet with pes cavus. Patient is a type II diabetic with calluses of both feet and the lesion on the right callus. - Currently evaluated by podiatry inpatient - Patient will require podiatry follow-up outpatient for foot care. (3) Ulcer of left lower leg Current Visit: Yes Status: Acute Assessment and plan: Chronic ulcer of the left lower extremity, not infected. currently continue wound care. - Continue Armando wrap and wound care. Qualifiers: Non-pressure ulcer stage: limited to breakdown of skin Qualified Code(s): L97.921 - Non-pressure chronic ulcer of unspecified part of left lower leg limited to breakdown of skin (4) Type 2 diabetes mellitus Current Visit: Yes Status: Acute Assessment and plan: Patient is a known type II diabetic, with A1c of 6.7 upon admission. Glucose is slightly elevated postoperatively. Increase sliding scale to medium dose. Plan: - Continue ACHS glucose checks - Continue medium dose inpatient sliding scale - Continue Levemir 10 units to twice a day. Qualifiers: Diabetes mellitus complication status: with skin complications Diabetes mellitus complication detail: with other skin ulcer Diabetes mellitus manager terminal insulin use: without half-way use Qualified Code(s): E11.622 - Type 2 diabetes mellitus with other skin ulcer - Subjective Interval history: Mr. Lewis 41M has been seen and evaluated this morning patient bedside. He is alert awake in no acute distress and has minimal pain. He tolerated his surgical procedure yesterday and denies any current pain in his right foot. He has been tolerating by mouth intake denies any bowel movements since the procedure. Denies fevers, chills, nausea vomiting diarrhea. He feels that his foot is improving and is looking forward to discharge. After discussion regarding the length of antibiotics today for concern of osteomyelitis is agreeable to PICC line and continued outpatient IV antibiotics post discharge. - Constitutional Vitals: Temp Pulse Resp BP Pulse Ox 97.8 F 82 18 114/77 98 12/17/16 11:09 12/17/16 11:09 12/17/16 11:09 12/17/16 11:09 12/17/16 11:09 General appearance: Present: A&O X 3, pleasant, no acute distress - Head Head exam: Present: atraumatic, normocephalic - Eye Eye exam: Present: PERRL, conjuntiva pink, sclera anicteric Pupils: Present: PERRL - ENT ENT exam: Present: mucous membranes moist - Neck Neck exam general surgery: Present: supple, trachea midline. Absent: lymphadenopathy - Respiratory Respiratory exam: Present: CTAB. Absent: accessory muscle use, rales, rhonchi, wheezes - Cardiovascular Cardiovascular exam: Present: RRR, +S1, +S2. Absent: diastolic murmur, gallop, rubs, systolic murmur - GI/Abdominal GI/Abdominal exam: Present: normal bowel sounds, soft, no peritoneal signs. Absent: distended, tenderness - Extremities Exam Extremities exam: Present: pedal edema, warm. Absent: tenderness Additional comments: Right foot and postsurgical wraps with toes exposed. Appropriate capillary refill, erythema improving. Neurovascularly intact. All other extremities of signs of lesions. Spontaneously moving all 4 limbs. - Neurological Exam Neurological exam: Present: alert, oriented X3, no focal deficits. Absent: pronater drift, facial droop, speech deficit - Psychiatric Psychiatric exam: Present: normal affect, normal mood Internal Medicine: Result - Labs CBC & Chem 7: 12/16/16 04:32 12/16/16 04:32 Consult Discharge Plan - Plan Referrals: Barby Godwin MD [Primary Care Provider] - 12/25/16 11:00 am <Aly Mcghee - Last Filed: 12/17/16 18:17> Date of Encounter: 12/17/16 - Constitutional Vitals: Temp Pulse Resp BP Pulse Ox 98.2 F 92 18 111/72 94 12/17/16 14:09 12/17/16 14:09 12/17/16 14:09 12/17/16 14:09 12/17/16 14:09 Internal Medicine: Result - Labs CBC & Chem 7: 12/16/16 04:32 12/16/16 04:32 - Attending Attestation I examined this patient and my medical decision-making was reviewed with the Resident Physician, Dr Dimas Trinidad. I agree with the documented findings, disposition and treatment plan as described except to the extent set forth below. Patient is well-controlled with analgesic medication. He does report right wrist pain at the insertion site of a previous IV. On exam he is in no acute distress awake alert oriented. Heart is regular S1- S2 with no murmurs. Plan: Continue IV antibiotics. Follow up cultures. Follow-up with podiatry.
[2016-12-17] MEDS ORDERED: Lidocaine -MPF 1% 5 ML AMPUL INFILT ONE (13:02)
--- NOTE | 2016-12-17 16:49 | Podiatry Progress Note ---
Date of Encounter: 12/17/16 Time of Encounter: 12:00 - Assessment and Plan (1) Type 2 diabetes mellitus Current Visit: Yes Status: Acute Qualifiers: Diabetes mellitus complication status: with skin complications Diabetes mellitus complication detail: with other skin ulcer Diabetes mellitus local intermodal truck driver insulin use: without assisted use Qualified Code(s): E11.622 - Type 2 diabetes mellitus with other skin ulcer (2) Abscess of right foot Current Visit: Yes Status: Acute Dressing removed Area cleansed Wound irrigated with saline Repacked with iodoform packing- patient tolerated well 4x4 and kerlex applied Post op sock reapplied Patient to wear post up shoe if OOB Awaiting cultures- antibiotic coverage and status pending results Call with any sudden changes to surgical site or patient Will round to change dressing tomorrow. Subjective Interval history: Patient s/p Incision and drainage of right foot, excisional debridement of right foot wound with Dr Herndon, upon arrival today patient states he is doing fine. Patient denies any pain at this time. Dressing intact. Patient resting with post op shoe on. Patient denies any fevers, chills, n/v or flu like symptoms. Denies any calf pain Objective - Vital Signs Vital Signs: Vital Signs Temp Pulse Resp BP Pulse Ox 12/17/16 14:09 98.2 F 92 18 111/72 94 12/17/16 11:09 97.8 F 82 18 114/77 98 12/17/16 07:36 98.5 F 73 19 118/79 96 12/17/16 04:31 98.2 F 75 14 117/82 96 12/16/16 22:54 98.3 F 90 14 127/81 97 12/16/16 20:39 98.1 F 92 18 94 12/16/16 17:33 77 18 117/80 97 12/16/16 17:07 98 F 71 16 116/79 98 Intake and Output 12/17/16 12/17/16 12/17/16 07:59 15:59 23:59 Intake Total 0 / 0 900 / 900 Output Total 750 / 750 1250 / 1250 Balance -750 / -750 -350 / -350 Intake: IV Fluids 500 / 500 Vancocin 1,750 MG In 500 / 500 Dextrose 5% 500 ML @ 333. 333 mls/hr IVPB 0500,1700 [facility] Rx#:[id number] Oral 0 / 0 400 / 400 Output: Urine 750 / 750 1250 / 1250 Other: Weight 95.4 kg Blood Glucose* 202 121 Patient Weight 12/17/16 23:59 Weight 95.4 kg - Exam Exam: Dressing removed Iodoform packing removed from surgical site Minimal amount of yellow drainage noted Incision site clear of any bleeding or purulent drainage Erythema and mild edema remain present to periwound area but decreased from yesterdays assessment Suture line to lateral aspect of foot c/d/i Minimal warmth, no odor Sensation intact to RLE Movement intact- slightly limited due to edema Pain with palpation- otherwise minimal pain Patient AAO No calf pain with manual compression - Lab Result Diagrams: 12/16/16 04:32 12/16/16 04:32 Labs: Abnormal lab results RBC 3.56 M/mcL (4.19-5.50) L 12/16/16 04:32 Hgb 10.4 g/dL (12.9-16.9) L 12/16/16 04:32 Hct 30.6 % (37.5-50.1) L 12/16/16 04:32 MPV 8.9 fL (9.4-12.4) L 12/16/16 04:32 ESR 48 mm/hr (0-10) H 12/15/16 13:22 Glucose 128 mg/dL (70-99) H 12/16/16 04:32 POC Glucose 121 (58-89) H 12/17/16 11:12 Hemoglobin A1c 6.7 % (-5.6) H 12/12/16 16:12 C-Reactive Protein 270 mg/L (Less than 5) H 12/12/16 16:12 Albumin 2.2 g/dL (3.5-5.0) L 12/16/16 04:32 Globulin 3.9 g/dL (2.4-3.5) H 12/16/16 04:32 Albumin/Globulin Ratio 0.6 (1.1-2.2) L 12/16/16 04:32 Microbiology, Last 48 Hours 12/16/16 16:05 Gram Stain - Preliminary Right Foot Consult Discharge Plan - Plan Referrals: Barby Godwin MD [Primary Care Provider] - 12/25/16 11:00 am
[2016-12-17 20:37] LABS: BUN/Creatinine Ratio 13 (6-26); Blood Urea Nitrogen 12 mg/dL (8-26); Calcium 8.3 mg/dL (8.6-10.8); Carbon Dioxide 28 mEq/L (19-29); Chloride 102 mEq/L (98-109); Glucose 264 mg/dL (70-99); Osmolality,Calculated 295 (280-300); Potassium 3.6 mEq/L (3.5-4.5); Sodium 138 mEq/L (136-145); eGFR For African Americans > 60 (> 60); eGFR For Non-African Americans > 60 (> 60)
[2016-12-18 04:08] LABS: Basophils % 0.4 %; Eosinophils # 0.4 K/mcL (0.0-0.6); Eosinophils % 4.8 %; Hemoglobin 11.5 g/dL (12.9-16.9); Immature Granulocytes % 0.4 % (0-4); Lymphocytes % 24.4 %; Mean Corpuscular HGB Conc 33.8 g/dL (31.6-35.5); Mean Corpuscular Hemoglobin 28.9 pg (28.0-33.3); Mean Corpuscular Volume 85.4 fL (83.0-100.0); Mean Platelet Volume 8.4 fL (9.4-12.4); Monocytes # 0.8 K/mcL (0.0-1.3); Monocytes % 9.7 %; Neutrophils # 4.9 K/mcL (1.6-8.9); Platelet Count 354 K/mcL (140-400); Red Blood Count 3.98 M/mcL (4.19-5.50); Red Cell Distribution Width 12.3 % (11.5-14.5); Segmented Neutrophils % 60.3 %
[2016-12-18 04:23] LABS: Alanine Aminotransferase 8 Units/L (0-55); Albumin 2.4 g/dL (3.5-5.0); Albumin/Globulin Ratio 0.6 (1.1-2.2); Alkaline Phosphatase 75 Units/L (38-126); Aspartate Amino Transferase 9 Units/L (5-34); BUN/Creatinine Ratio 12 (6-26); Bilirubin,Total 0.4 mg/dL (0.2-1.2); Blood Urea Nitrogen 10 mg/dL (8-26); Calcium 8.7 mg/dL (8.6-10.8); Carbon Dioxide 30 mEq/L (19-29); Chloride 104 mEq/L (98-109); Globulin 4.2 g/dL (2.4-3.5); Glucose 102 mg/dL (70-99); Osmolality,Calculated 293 (280-300); Potassium 3.4 mEq/L (3.5-4.5); Sodium 142 mEq/L (136-145); Total Protein 6.6 g/dL (6.0-8.3); eGFR For African Americans > 60 (> 60); eGFR For Non-African Americans > 60 (> 60)
[2016-12-18] MEDS: Vancomycin 1,750 MG in D5% in Water 500 ML IVPB SCH (04:33)
[2016-12-18] MEDS: *HR* Enoxaparin 40 MG/0.4 ML SYRINGE SQ SCH (06:13)
[2016-12-18] MEDS ORDERED: Potassium Chloride Elixir 20 MEQ/15 ML UDC PO ONE (06:15)
[2016-12-18] MEDS: Insulin DETEMIR 100 UNIT/ML X5UNITS SQ SCH ×2 (08:43→20:58)
[2016-12-18] MEDS: Insulin LISPRO 300 UNITS/3 ML VIAL SQ SCH ×4 (08:48→21:01)
[2016-12-18] MEDS: Miconazole 2% cream 118 GM TUBE TP SCH ×2 (08:48→21:01)
--- NOTE | 2016-12-18 13:33 | Podiatry Progress Note ---
Date of Encounter: 12/18/16 Time of Encounter: 13:29 - Assessment and Plan (1) Abscess of right foot Current Visit: Yes Status: Acute (2) Cellulitis of foot Current Visit: Yes Status: Acute I think he is doing well. Cultures from abscess currently GPC, presumably staph. He will require saline flush/iodoform packing with sterile dressing (4x4 gauze, curt, and an efren wrap0 at home every other day. continue to use surgical shoe PWB on the heel of the right foot. His bone was felt to be of hard quality in the operating room. recommend discharge on culture sensitive oral antibiotics. f/u in 1 week with podiatry. (3) Type 2 diabetes mellitus Current Visit: Yes Status: Acute Qualifiers: Diabetes mellitus complication status: with skin complications Diabetes mellitus complication detail: with other skin ulcer Diabetes mellitus senior living insulin use: without senior living use Qualified Code(s): E11.622 - Type 2 diabetes mellitus with other skin ulcer Subjective Interval history: patient is s/p R foot I&D. denies f/c/n/v/sp/cp/calf pain. says his foot pain is under control and does not hurt other than when the bandage is being changed. Objective - Vital Signs Vital Signs: Vital Signs Temp Pulse Resp BP Pulse Ox 12/18/16 11:29 98.0 F 84 16 108/74 96 12/18/16 08:07 97.4 F L 78 16 109/74 96 12/18/16 03:47 97.8 F 85 18 115/75 95 12/17/16 20:54 98.0 F 86 18 129/82 98 12/17/16 14:09 98.2 F 92 18 111/72 94 Intake and Output 12/17/16 12/18/16 12/18/16 23:59 07:59 15:59 Intake Total 500 / 500 700 / 700 Output Total 400 / 400 1000 / 1000 800 / 800 Balance 100 / 100 -300 / -300 -800 / -800 Intake: IV Fluids 500 / 500 500 / 500 Vancocin 1,750 MG In 500 / 500 500 / 500 Dextrose 5% 500 ML @ 333. 333 mls/hr IVPB 0500,1700 [facility] Rx#:[id number] Oral 0 / 0 200 / 200 Output: Urine 400 / 400 1000 / 1000 800 / 800 Other: Weight 95.4 kg Blood Glucose* 245 132 Patient Weight 12/18/16 23:59 Weight 95.4 kg - Exam Exam: well nourished male in no acute distress erythema of the right foot has almost completely resolved. edema of the right foot is signicantly decreased. no purulence expressed. no fluctuance. CFT < 3 sec x 5 digits right foot. sutures intact laterally. decreasing size of ulceration plantarly submet 5 and interspace. sensation intact to light touch. no calf pain with squeeze b/l. - Lab Result Diagrams: 12/18/16 03:45 12/18/16 03:45 Labs: Abnormal lab results RBC 3.98 M/mcL (4.19-5.50) L 12/18/16 03:45 Hgb 11.5 g/dL (12.9-16.9) L 12/18/16 03:45 Hct 34.0 % (37.5-50.1) L 12/18/16 03:45 MPV 8.4 fL (9.4-12.4) L 12/18/16 03:45 ESR 48 mm/hr (0-10) H 12/15/16 13:22 Potassium 3.4 mEq/L (3.5-4.5) L 12/18/16 03:45 Carbon Dioxide 30 mEq/L (19-29) H 12/18/16 03:45 Glucose 102 mg/dL (70-99) H 12/18/16 03:45 POC Glucose 132 (58-89) H 12/18/16 11:34 Hemoglobin A1c 6.7 % (-5.6) H 12/12/16 16:12 C-Reactive Protein 270 mg/L (Less than 5) H 12/12/16 16:12 Albumin 2.4 g/dL (3.5-5.0) L 12/18/16 03:45 Globulin 4.2 g/dL (2.4-3.5) H 12/18/16 03:45 Albumin/Globulin Ratio 0.6 (1.1-2.2) L 12/18/16 03:45 Microbiology, Last 48 Hours 12/16/16 16:05 Wound Culture - Preliminary Right Foot Gram Positive Cocci 12/16/16 16:05 Gram Stain - Preliminary Right Foot Consult Discharge Plan - Plan Referrals: Godwin,J Guerrero, MD [Primary Care Provider] - 12/25/16 11:00 am
--- NOTE | 2016-12-18 14:21 | Physician Discharge Referral ---
Addendum entered and electronically signed by Dimas Dominguez DO 12/18 14:37: wound care per podiatry: He will require saline flush/iodoform packing with sterile dressing (4x4 gauze, curt, and an efren wrap0 at home every other day. continue to use surgical shoe PWB on the heel of the right foot. Original Note: <Dimas Dominguez - Last Filed: 12/18/16 14:14> Home Health/Hosp Referral Info Attending Provider: adalid dominguez Provider in Charge Post Discharge: PCP - Diagnosis (1) Cellulitis of foot Priority: Primary Status: Acute (2) Callus of foot Priority: Primary Status: Acute (3) Ulcer of left lower leg Priority: Primary Status: Acute (4) Type 2 diabetes mellitus Priority: Secondary Status: Acute - Respiratory Orders Smoking Cessation: Smoking cessation has been advised. For more information, call the [employer] Quit Line at 0-899-JHEZNOW. - Diet/Nutrition Diet/Nutrition: List: diabetic diet - Activity Activity Orders: Ambulate - Services Needed Following services are medically necessary services: Home Health Aide, Physical Therapy, Occupational Therapy, Home Infusion - Transfer Medications Prescriptions: CeFAZolin [Ancef] 1,000 mg IVPB Q8HR 30 Days Home Medications: Metformin HCl [Fortamet] 1,500 mg PO DAILY 09/23/16 [History] Collagenase Oint [Santyl] 1 appl TP DAILY 12/13/16 [History] CeFAZolin [Ancef] 1,000 mg IVPB Q8HR 30 Days 12/18/16 [Rx] Allergies/Adverse Reactions: Allergies No Known Allergies Allergy (Verified 09/01/16 19:41) Certification: Further, I certify that my clinical findings support that this patient is homebound (i.e. absences from home require considerable and taxing effort and are for medical reasons or worship services or infrequently or short duration when for other reasons) because: Homebound Reason: Patient requires assistance of a person or device to safely leave home, Post-surgery restriction and or conditions limit ability to leave home, Leaving home requires considerable and taxing effort due to condition Attestation: My signature below is to certify that this patient is under my care and that I, or nurse practitioner, or a physician's legal support assistant working with me, has a face-to -face encounter with this patient. <Aly Mcghee - Last Filed: 12/18/16 19:30> - Respiratory Orders Smoking Cessation: Smoking cessation has been advised. For more information, call the [place] [employer] Quit Line at 7-887-ZQOJ-NOW. Certification: Further, I certify that my clinical findings support that this patient is homebound (i.e. absences from home require considerable and taxing effort and are for medical reasons or worship services or infrequently or short duration when for other reasons) because: Attestation: My signature below is to certify that this patient is under my care and that I, or nurse practitioner, or a physician's legal support assistant working with me, has a face-to -face encounter with this patient. I examined this patient and my medical decision-making was reviewed with the Resident Physician. I agree with the documented findings, disposition and treatment plan as described.
--- NOTE | 2016-12-18 14:31 | Internal Med Progress Note ---
<Dimas Trinidad - Last Filed: 12/18/16 14:29> Date of Encounter: 12/18/16 Time of Encounter: 14:29 - Assessment and plan (1) Cellulitis of foot Current Visit: Yes Status: Acute Assessment and plan: Cellulitis of right foot up to mid crespo. On admission, Patient was on broad- spectrum antibiotics including vancomycin and Zosyn. He was de-escalated to only Vancomycin 12/13. Possible sources may be secondary to injury to the third and fourth toenails in the setting of type 2 diabetes and fungal infection. Patient also has a lesion on the plantar surface callus that may be a source of infection. - 3 view x-ray of the right foot does not demonstrate any bony fractures, there is soft tissue edema. 12/16/2016: Patient's symptoms have improved, patient for looks slightly improved from erythema and edema. Continues to have blistery lesion between his fourth and fifth digits. He is planned to undergo I&D of foot abscess, per podiatry. 12/17/2016: Post IND of abscesses and right foot. Erythema and edema improving. Concern for osteomyelitis patient is on vancomycin. Wound cultures collected with results pending. 12/18/2016: Much improved, wound culture preliminary is gram-positive cocci suspecting staph aureus species, starting patient on Ancef, discontinue vancomycin Plan: - Will switch antibiotic coverage to cefazolin and plan to send him home on 4 weeks IV antibiotic coverage. - Controlled type 2 diabetes for improved healing - Podiatry is following. - Discharge home tomorrow with wound care (2) Callus of foot Current Visit: No Status: Acute Assessment and plan: Patient has callus of bilateral feet with pes cavus. Patient is a type II diabetic with calluses of both feet and the lesion on the right callus. - Currently evaluated by podiatry inpatient - Patient will require podiatry follow-up outpatient for foot care. (3) Ulcer of left lower leg Current Visit: Yes Status: Acute Assessment and plan: Chronic ulcer of the left lower extremity, not infected. currently continue wound care. - Continue Armando wrap and wound care. Qualifiers: Non-pressure ulcer stage: limited to breakdown of skin Qualified Code(s): L97.921 - Non-pressure chronic ulcer of unspecified part of left lower leg limited to breakdown of skin (4) Type 2 diabetes mellitus Current Visit: Yes Status: Acute Assessment and plan: Patient is a known type II diabetic, with A1c of 6.7 upon admission. Glucose is controlled today Plan: - Continue ACHS glucose checks - Continue medium dose inpatient sliding scale - Continue Levemir 10 units to twice a day. Qualifiers: Diabetes mellitus complication status: with skin complications Diabetes mellitus complication detail: with other skin ulcer Diabetes mellitus emt intermediate insulin use: without penitentiary use Qualified Code(s): E11.622 - Type 2 diabetes mellitus with other skin ulcer - Subjective Interval history: Mr. Lewis 41M has been seen and evaluated this morning patient bedside. He is alert awake in no acute distress and has minimal pain. He has been tolerating by mouth intake denies any bowel movements since the procedure. Denies fevers, chills, nausea vomiting diarrhea. I discussed his current antibiotic coverage and plans to send him out on Ancef for which she is agreeable. He feels that he is improving significantly since admission and plans to continue good foot care and follow-up. - Constitutional Vitals: Temp Pulse Resp BP Pulse Ox 98.0 F 84 16 108/74 96 12/18/16 11:29 12/18/16 11:29 12/18/16 11:29 12/18/16 11:29 12/18/16 11:29 General appearance: Present: A&O X 3, pleasant, no acute distress - Head Head exam: Present: atraumatic, normocephalic - Eye Eye exam: Present: PERRL, conjuntiva pink, sclera anicteric Pupils: Present: PERRL - ENT ENT exam: Present: mucous membranes moist - Neck Neck exam general surgery: Present: supple, trachea midline. Absent: lymphadenopathy - Respiratory Respiratory exam: Present: CTAB. Absent: accessory muscle use, rales, rhonchi, wheezes - Cardiovascular Cardiovascular exam: Present: RRR, +S1, +S2. Absent: diastolic murmur, gallop, rubs, systolic murmur - GI/Abdominal GI/Abdominal exam: Present: normal bowel sounds, soft, no peritoneal signs. Absent: distended, tenderness - Extremities Exam Extremities exam: Present: warm, radial pulses palpable and symetrical. Absent : calf tenderness, cyanotic, pedal edema Additional comments: Right foot is bandaged with improving erythema. Patient has neurovascular intact responses in his right and left foot. - Neurological Exam Neurological exam: Present: CN II-XII intact, oriented X3, no focal deficits. Absent: pronater drift, facial droop, speech deficit - Psychiatric Psychiatric exam: Present: normal affect, normal mood - Skin Skin exam: Present: dry, intact Internal Medicine: Result - Labs CBC & Chem 7: 12/18/16 03:45 12/18/16 03:45 Labs: Short CBC 12/18/16 Range/Units 03:45 WBC 8.1 (4.3-11.1) K/mcL Hgb 11.5 L (12.9-16.9) g/dL Hct 34.0 L (37.5-50.1) % Plt Count 354 (140-400) K/mcL Neutrophils # 4.9 (1.6-8.9) K/mcL BMP 12/17/16 12/18/16 20:15 03:45 Sodium 138 142 Potassium 3.6 3.4 L Chloride 102 104 Carbon Dioxide 28 30 H BUN 12 10 Creatinine 0.96 0.86 Glucose 264 H 102 H Calcium 8.3 L 8.7 Liver Function 12/18/16 Range/Units 03:45 Total Bilirubin 0.4 (0.2-1.2) mg/dL AST 9 (5-34) Units/L ALT 8 (0-55) Units/L Alkaline Phosphatase 75 (38-126) Units/L Albumin 2.4 L (3.5-5.0) g/dL Consult Discharge Plan - Plan Referrals: Barby Godwin MD [Primary Care Provider] - 12/25/16 11:00 am Prescriptions: CeFAZolin [Ancef] 1,000 mg IVPB Q8HR 30 Days <Aly Mcghee - Last Filed: 12/18/16 19:29> Date of Encounter: 12/18/16 - Constitutional Vitals: Temp Pulse Resp BP Pulse Ox 98.6 F 98 14 108/75 97 12/18/16 14:55 12/18/16 14:55 12/18/16 14:55 12/18/16 14:55 12/18/16 14:55 Internal Medicine: Result - Labs CBC & Chem 7: 12/18/16 03:45 12/18/16 03:45 Labs: Short CBC 12/18/16 Range/Units 03:45 WBC 8.1 (4.3-11.1) K/mcL Hgb 11.5 L (12.9-16.9) g/dL Hct 34.0 L (37.5-50.1) % Plt Count 354 (140-400) K/mcL Neutrophils # 4.9 (1.6-8.9) K/mcL BMP 12/17/16 12/18/16 20:15 03:45 Sodium 138 142 Potassium 3.6 3.4 L Chloride 102 104 Carbon Dioxide 28 30 H BUN 12 10 Creatinine 0.96 0.86 Glucose 264 H 102 H Calcium 8.3 L 8.7 Liver Function 12/18/16 Range/Units 03:45 Total Bilirubin 0.4 (0.2-1.2) mg/dL AST 9 (5-34) Units/L ALT 8 (0-55) Units/L Alkaline Phosphatase 75 (38-126) Units/L Albumin 2.4 L (3.5-5.0) g/dL - Attending Attestation I examined this patient and my medical decision-making was reviewed with the Resident Physician, Dr Trinidad. I agree with the documented findings, disposition and treatment plan as described except to the extent set forth below. He appears in no acute distress heart is regular rate and rhythm S1-S2, lungs clear bilaterally. Extremities with no edema. Right foot wrapped with dry dressing. Plan: De-escalate antibiotic according to culture and sensitivity to Ancef every 8 hours for MSSA osteomyelitis without bacteremia.
[2016-12-18] MEDS: ceFAZolin 2,000 MG in D5% in Water 100 ML IVPB SCH (16:14)
[2016-12-18] MEDS ORDERED: Vancomycin 1,500 MG in D5% in Water 250 ML IVPB SCH (17:00)
[2016-12-19] MEDS: ceFAZolin 2,000 MG in D5% in Water 100 ML IVPB SCH ×2 (00:05→09:09)
[2016-12-19] MEDS: *HR* Enoxaparin 40 MG/0.4 ML SYRINGE SQ SCH (06:04)
[2016-12-19 07:48] VITALS: BP 107/73
--- NOTE | 2016-12-19 08:43 | Discharge Summary ---
Date of Encounter: 12/19/16 Time of Encounter: 08:40 - Discharge Diagnosis (1) Acute osteomyelitis of metatarsal bone of right foot Priority: Primary Status: Acute (2) Pressure ulcer, ankle, left, unstageable Priority: Secondary Status: Acute (3) Cellulitis of foot Priority: Secondary Status: Acute (4) Type 2 diabetes mellitus Priority: Secondary Status: Acute Qualifiers: Diabetes mellitus complication status: with skin complications Diabetes mellitus complication detail: with other skin ulcer Diabetes mellitus intermediate frame tender insulin use: without intermediate frame tender use Qualified Code(s): E11.622 - Type 2 diabetes mellitus with other skin ulcer (5) Abscess of right foot Priority: Secondary Status: Acute (6) Foot ulcer, right Priority: Secondary Status: Acute Qualifiers: Non-pressure ulcer stage: limited to breakdown of skin Qualified Code(s): L97.511 - Non-pressure chronic ulcer of other part of right foot limited to breakdown of skin - Discharge Medications Prescriptions: CeFAZolin [Ancef] 1,000 mg IVPB Q8HR 30 Days Home Medications: Metformin HCl [Fortamet] 1,500 mg PO DAILY 09/23/16 [History] Collagenase Oint [Santyl] 1 appl TP DAILY 12/13/16 [History] CeFAZolin [Ancef] 1,000 mg IVPB Q8HR 30 Days 12/18/16 [Rx] Allergies/Adverse Reactions: Allergies No Known Allergies Allergy (Verified 09/01/16 19:41) Date of admission: 12/12/16 19:45 Primary care physician: Barby Godwin MD Consults: 12/16/16 17:05 Consult to Physical Therapy [CONS] Routine Comment: Evaluate, develop and implement POC, PWB sx shoe 12/17/16 13:02 Consult to Invasive Line Access Team [CONS] Routine Reason for Consult: Picc Line Insertion Line Type: PICC 12/18/16 07:18 Consult to Heat Treat Worker [CONS] Routine Reason for SW Consult: discharge planning - Patient Status Disposition: Home Health Service Condition: Fair Functional capacity at discharge: independent ambulation Overall status at discharge: patient is not back to baseline - Discharge Instructions Follow Up With: Barby Godwin MD [Primary Care Provider] - 12/25/16 11:00 am García Bergeron DPM [Partnered Physician] - Additional Instructions: Local wound care instructions per podiatry: "He will require saline flush/ iodoform packing with sterile dressing (4x4 gauze, curt, and an efren wrap0 at home every other day. continue to use surgical shoe PWB on the heel of the right foot. His bone was felt to be of hard quality in the operating room. recommend discharge on culture sensitive oral antibiotics. f/u in 1 week with podiatry." IV cefazolin 1 g every 8 hours for 4 weeks could be extended to 6 weeks by PCP based on clinical picture and laboratory testing. BMP CBC ESR and CRP every Wednesday starting on December 22. - Diet and Activity Activity: increase activity as tolerated Diet: diabetic diet, low salt diet Hospital course: Mr. Lewis is a 41 year old male with mild developmental delay, with recently diagnosed type 2 diabetes and LLE diabetic ulcer who presented to the ED with complaints of right foot pain, swelling and redness. Patient reported that over a week ago, he accidentally kicked something with his right foot, resulting in the loss of 2 of his toe nails. He noted some redness on the the top of his right foot, which he thought was just a rash. He developed some pain in the right calf on Wednesday. The morning of his presentation he woke up and the foot was significantly swollen and the pain had increased, prompting his mother to bring him to the ED. He denied any fever, chills, sweats, body aches, nausea, vomiting or diarrhea. He reported some tingling in the right toes. Evaluation in the ED included a right foot xray which was negative for any acute osseous abnormality. Blood glucose was elevated. Blood cultures were drawn and the patient was initiated on therapy with broad-spectrum antibiotics and admitted to the medical service. Podiatry was consulted. He had an MRI of the foot which could not rule out osteomyelitis and showed some reactive changes in the fourth and fifth right foot metatarsal bones as well as the fourth proximal phalanx. He had incision and drainage of the right foot wound with excisional debridement done by podiatry on 12/16/2016 which she tolerated well. Fluid culture was revealed the presence of MSSA. His antibiotic therapy was narrowed to cefazolin. He tolerated this well. Examination of the foot reveals gradual improvement and terms of redness and swelling. His cellulitis has been improving gradually. His blood cultures drawn on admission are negative. Sepsis was ruled out based on negative blood cultures and negative SIRS criteria. He will be treated for osteomyelitis with 4-6 weeks of IV antibiotics. Has been prescribed 4 weeks of IV cefazolin and based on the clinical picture can be extended by the primary care physician to 6 weeks. He will be ordered weekly CBC, BMP, ESR and CRP. During this hospitalization he was treated with insulin Levemir and Humalog sliding scale. He will be switched back to his home dose of metformin upon discharge. He had a PICC line placed for IV antibiotics at home and was set up with home health for IV home antibiotics and wound care. I have discussed the discharge planning with the patient and his mother verbalized understanding and agreement of the plan. I have spent 40 minutes coronary this discharge. - Time Spent with Patient Total time spent providing and/or coordinating discharge services: Greater than 30 minutes - Constitutional Vitals: Temp Pulse Resp BP Pulse Ox 97.7 F 74 14 107/73 97 12/19/16 06:50 12/19/16 06:50 12/19/16 06:50 12/19/16 06:50 12/19/16 06:50 General appearance: Present: A&O X 3, pleasant, no acute distress - Respiratory Respiratory exam: Present: CTAB. Absent: accessory muscle use, rales, rhonchi, wheezes - Cardiovascular Cardiovascular exam: Present: RRR, +S1, +S2. Absent: diastolic murmur, gallop, rubs, systolic murmur - GI/Abdominal GI/Abdominal exam: Present: normal bowel sounds, soft, no peritoneal signs. Absent: distended, tenderness - Skin Additional comments: Right foot plantar wounds healing, closed with sutures, no discharge or bleeding.
[2016-12-19] MEDS: Insulin LISPRO 300 UNITS/3 ML VIAL SQ SCH (08:54)
[2016-12-19] MEDS: Insulin DETEMIR 100 UNIT/ML X5UNITS SQ SCH (09:09)
[2016-12-19] MEDS: Miconazole 2% cream 118 GM TUBE TP SCH (09:10)
--- NOTE | 2016-12-19 09:19 | Podiatry Progress Note ---
Date of Encounter: 12/19/16 Time of Encounter: 09:14 - Assessment and Plan (1) Abscess of right foot Current Visit: Yes Status: Acute he continues to do well. cultures grew MSSA. being discharged on antibiotics per the primary team. He will have saline flush/iodoform packing with sterile dressing (4x4 gauze, curt, and an efren wrap at home every other day. continue to use surgical shoe PWB on the heel of the right foot. f/u in 1 week with podiatry. discussed with patient and family bedside. (2) Cellulitis of foot Current Visit: Yes Status: Acute (3) Type 2 diabetes mellitus Current Visit: Yes Status: Acute Qualifiers: Diabetes mellitus complication status: with skin complications Diabetes mellitus complication detail: with other skin ulcer Diabetes mellitus correction insulin use: without terminal manager use Qualified Code(s): E11.622 - Type 2 diabetes mellitus with other skin ulcer Subjective Interval history: patient is s/p R foot I&D. He says he is doing well and ready to go home. denies f/c/n/v/sp/cp/calf pain. says his foot does not hurt. he puts weight on it in the surgical shoe putting most of his weight on the heel. they also says the left leg wound looks significantly better since has been in the hospital. Objective - Vital Signs Vital Signs: Vital Signs Temp Pulse Resp BP Pulse Ox 12/19/16 06:50 97.7 F 74 14 107/73 97 12/19/16 00:31 98.2 F 76 15 113/75 95 12/18/16 19:39 98.4 F 90 18 112/74 97 12/18/16 14:55 98.6 F 98 14 108/75 97 12/18/16 11:29 98.0 F 84 16 108/74 96 Intake and Output 12/18/16 12/19/16 12/19/16 23:59 07:59 15:59 Intake Total 100 / 100 100 / 100 120 / 120 Output Total 500 / 500 1050 / 1050 Balance -400 / -400 -950 / -950 120 / 120 Intake: IV Fluids 100 / 100 100 / 100 Ancef 2,000 MG In 100 / 100 100 / 100 Dextrose 5% 100 ML @ 200 mls/hr IVPB Q8HR [facility] Rx#: [id number] Oral 0 / 0 0 / 0 120 / 120 Output: Urine 500 / 500 1050 / 1050 Other: Meal Breakfast Percent of Meal Consumed 100% Blood Glucose* 147 102 - Exam Exam: well developed and nourished male in no acute distress CFT < 3 sec x 5 digits right foot. erythema resolved, edema is resolving, no purulence expressed from surgical sites, plantar foot wound has almost healed. other lateral foot wounds have skin edges coapting. touching foot and surgical sites is not painful. able to flex and extend digits of the right foot. sensation intact to light touch. right foot culture-MSSA - Lab Result Diagrams: 12/18/16 03:45 12/18/16 03:45 Labs: Abnormal lab results RBC 3.98 M/mcL (4.19-5.50) L 12/18/16 03:45 Hgb 11.5 g/dL (12.9-16.9) L 12/18/16 03:45 Hct 34.0 % (37.5-50.1) L 12/18/16 03:45 MPV 8.4 fL (9.4-12.4) L 12/18/16 03:45 ESR 48 mm/hr (0-10) H 12/15/16 13:22 Potassium 3.4 mEq/L (3.5-4.5) L 12/18/16 03:45 Carbon Dioxide 30 mEq/L (19-29) H 12/18/16 03:45 Glucose 102 mg/dL (70-99) H 12/18/16 03:45 POC Glucose 102 (58-89) H 12/19/16 06:50 Hemoglobin A1c 6.7 % (-5.6) H 12/12/16 16:12 C-Reactive Protein 270 mg/L (Less than 5) H 12/12/16 16:12 Albumin 2.4 g/dL (3.5-5.0) L 12/18/16 03:45 Globulin 4.2 g/dL (2.4-3.5) H 12/18/16 03:45 Albumin/Globulin Ratio 0.6 (1.1-2.2) L 12/18/16 03:45 Microbiology, Last 48 Hours 12/16/16 16:05 Wound Culture - Final Right Foot Staphylococcus aureus 12/16/16 16:05 Gram Stain - Final Right Foot Consult Discharge Plan - Plan Additional Instructions: Local wound care instructions per podiatry: "He will require saline flush/ iodoform packing with sterile dressing (4x4 gauze, curt, and an efren wrap0 at home every other day. continue to use surgical shoe PWB on the heel of the right foot. His bone was felt to be of hard quality in the operating room. recommend discharge on culture sensitive oral antibiotics. f/u in 1 week with podiatry." IV cefazolin 1 g every 8 hours for 4 weeks could be extended to 6 weeks by PCP based on clinical picture and laboratory testing. BMP CBC ESR and CRP every Wednesday starting on December 22. Referrals: Barby Godwin MD [Primary Care Provider] - 12/25/16 11:00 am García Bergeron DPM [Partnered Physician] - Prescriptions: CeFAZolin [Ancef] 1,000 mg IVPB Q8HR 30 Days
[2016-12-19] MEDS ORDERED: Aminoglycoside Consult 1 EACH MC ONE (10:19)
== END 2016-12-19 10:20 | disposition home health service (06) | DRG 623 ==
LOC: 3ANU 15:09 → EMEROO 15:09 → 3ANU 19:05 → SUATTDRO 19:45
PROVIDERS: ADMIT Hospitalist; ATTEND Internal Medicine

== ENCOUNTER 2019-04-18 14:15 | Inpatient (IN) ==
[2019-04-18 15:47] LABS: Basophils % 0.4 %; Eosinophils # 0.3 K/mcL (0.0-0.6); Eosinophils % 2.4 %; Hematocrit 37.5 % (37.5-50.1); Hemoglobin 12.5 g/dL (12.9-16.9); Immature Granulocytes % 0.9 % (0-4); Lymphocytes % 18.7 %; Mean Corpuscular HGB Conc 33.3 g/dL (31.6-35.5); Mean Corpuscular Hemoglobin 29.8 pg (28.0-33.3); Mean Corpuscular Volume 89.3 fL (83.0-100.0); Mean Platelet Volume 9.1 fL (9.4-12.4); Monocytes # 1.1 K/mcL (0.0-1.3); Monocytes % 10.1 %; Neutrophils # 7.4 K/mcL (1.6-8.9); Platelet Count 384 K/mcL (140-400); Red Cell Distribution Width 12.6 % (11.5-14.5); Segmented Neutrophils % 67.5 %; White Blood Count 10.9 K/mcL (4.3-11.1)
[2019-04-18 16:08] LABS: Platelet Estimate Normal (Normal); Reactive Lymphocytes Present (Not Present); Toxic Granulation Present (Not Present)
[2019-04-18 16:45] LABS: BUN/Creatinine Ratio 15 (6-26); Blood Urea Nitrogen 14 mg/dL (6-20); Calcium 9.3 mg/dL (8.6-10.3); Carbon Dioxide 27 mEq/L (23-29); Chloride 96 mEq/L (98-107); Glucose 302 mg/dL (70-105); Osmolality,Calculated 288 (280-300); Potassium 3.9 mEq/L (3.5-5.1); Sodium 133 mEq/L (136-145); eGFR For African Americans > 60 (> 60); eGFR For Non-African Americans > 60 (> 60)
[2019-04-18] MEDS ORDERED: Piperacillin/Tazobactam 3.375 GM in 0.9 % Sodium Chloride Mini Bag 100 ML IVPB ONE (16:50)
--- NOTE | 2019-04-18 17:07 | Emergency Department Note ---
Disposition Clinical Impression: Foot ulcer Qualifiers: Laterality: right Non-pressure ulcer stage: unspecified non-pressure ulcer stage Qualified Code(s): L97.519 - Non-pressure chronic ulcer of other part of right foot with unspecified severity Osteomyelitis Qualifiers: Osteomyelitis type: unspecified type Osteomyelitis location: foot Laterality: right Qualified Code(s): M86.9 - Osteomyelitis, unspecified Disposition: Admitted As Inpatient Condition: Fair Forms: ED Satisfaction Letter Time of Disposition: 17:16 General Adult HPI - General Chief complaint: ED Wound/Laceration Stated complaint: Right leg/foot infection Time Seen by Provider: 04/18/19 16:31 Source: patient, family Limitations: no limitations - History of Present Illness HPI Narrative: Patient here with a right foot infection seen at podiatry today sent here for IV antibiotics. There were any might need to go to the OR the next couple days. Recommend starting antibiotics we did do a wound culture there. He said he has mild pain he was on Augmentin for partially 3 days with no relief and they noticed that he had increasing swelling as well as some in office today. He has no fevers chills no other complaints. Says the pain is 2 out of 10 which is normal for him. Pain Scale: 0 - Related Data Home Medications Medication Instructions Recorded Confirmed Metformin HCl [Fortamet] 1,500 mg PO DAILY 09/23/16 12/13/16 Collagenase Oint [Santyl] 1 appl TP DAILY 12/13/16 12/13/16 Previous Rx's Medication Instructions Recorded ceFAZolin [Ancef] 1,000 mg IVPB Q8HR 30 Days mls 12/18/16 Allergies Allergy/AdvReac Type Severity Reaction Status Date / Time No Known Allergies Allergy Verified 04/18/19 14:24 All systems ED: reviewed and negative except as stated. Review of Systems: As Per HPI Past Medical History - Past Medical History Attestation: Yes The following information was validated with the patient. Source: patient Medical history: Reports: diabetes, other Surgical history: Reports: orthopedic, other, other Psychiatric history: Reports: anxiety - Social History Smoking Status: Never smoker Smokeless Tobacco Status: No Alcohol use: Reports: none Drug use: Reports: none Physical Exam - General Limitations: no limitations General appearance: alert, in no apparent distress - Head Head exam: atraumatic, normocephalic, normal inspection - Eye Eye exam: Present: normal appearance, PERRL, EOMI - ENT ENT exam: normal exam, normal oropharynx, mucous membranes moist - Neck Neck exam: Present: normal inspection, full ROM, trachea midline - Chest Chest inspection: Present: normal inspection, symmetric chest wall rise - Respiratory Respiratory exam: Present: normal lung sounds bilaterally - Cardiovascular Cardiovascular exam: Present: regular rate, normal rhythm, normal heart sounds - Abdominal Exam Abdominal exam: Present: soft, Non-Tender, normal bowel sounds. Absent: tenderness, distention, guarding, rebound, rigidity - Extremities Exam Extremities exam: Present: normal inspection, full ROM. Absent: tenderness, pedal edema - Expanded Lower Extremity Exam Foot/toe exam: Present: other (2 cm ulcer on the right lateral portion of the foot or the distal portion of the fifth metatarsal. No open bone the can be seen. There is pus draining from. Currently wrapped. There is erythema around the foot not totally circumferential at this time. No crepitus seen on exam) - Back Exam Back exam: Present: normal inspection, full ROM, CVA tenderness (R), CVA tenderness (L). Absent: tenderness - Neurological Exam Neurological exam: Present: alert, oriented X3 - Skin Skin exam: Present: warm, dry, intact, normal color Course Vital Signs Temperature 98.2 F 04/18/19 14:21 Pulse Rate 99 04/18/19 14:21 Respiratory Rate 16 04/18/19 14:21 Blood Pressure 120/84 04/18/19 14:21 O2 Sat by Pulse Oximetry 99 04/18/19 14:21 Temperature 98.2 F 04/18/19 14:21 Pulse Rate 99 04/18/19 14:21 Respiratory Rate 16 04/18/19 14:21 Blood Pressure 120/84 04/18/19 14:21 O2 Sat by Pulse Oximetry 99 04/18/19 14:21 Oxygen Delivery Oxygen Delivery Room Air Medical Decision Making - [facility] Narrative Medical decision making narrative: 43-year-old male presented here with foot ulcer. I spoke with the on-call e mail system administrator Dr. Mora who sent the patient over here he recommended admission IV antibiotics he is okay with broad-spectrum including Zosyn and vancomycin. Said patient does not need to be nothing by mouth at this time but he may need to go to the OR in the next 1-2 days per the recommended admitting to the hos pital seen consulting them. That consult was placed. Labs were drawn. His okay at the x-ray said no further treatment is needed at this time. They did get culture in the outpatient clinic. They will follow up on that de-escalate antibiotics based on how that comes out. Patient is not septic or need further treatment this time. Patient stable. Spoke with Dr. Mathis who agreed to admit the patient to their service. Patient admitted in stable condition Foot X-Ray 04/18/19 16:31 IMPRESSION: There appears to be some soft tissue swelling about the 5th MTP joint predominantly laterally. Question if there is some mild soft tissue gas in this same region. Findings are concerning for infection with gas-forming organism. Mild rarefaction of the 5th metatarsal head with possibly some erosive change laterally concerning for osteomyelitis. Suggest MRI evaluation. D/ / 04/18/2019 17:00:48 Timothy Soni MD / keli Interpreting Provider: Timothy Soni MD - Medical Records Medical records reviewed: Yes I reviewed the patient's medical records. - Lab Data Lab results reviewed: Yes I reviewed the patient's lab results. Result diagrams: 04/18/19 15:27 04/18/19 15:27 Lab Results 04/18/19 04/18/19 Range/Units 15:27 15:27 WBC 10.9 (4.3-11.1) K/mcL RBC 4.20 (4.19-5.50) M/mcL Hgb 12.5 L (12.9-16.9) g/dL Hct 37.5 (37.5-50.1) % MCV 89.3 (83.0-100.0) fL MCH 29.8 (28.0-33.3) pg MCHC 33.3 (31.6-35.5) g/dL RDW 12.6 (11.5-14.5) % Plt Count 384 (140-400) K/mcL MPV 9.1 L (9.4-12.4) fL Immature Gran % 0.9 (0-4) % Seg Neutrophils % 67.5 % Lymphocytes % 18.7 % Monocytes % 10.1 % Eosinophils % 2.4 % Basophils % 0.4 % Neutrophils # 7.4 (1.6-8.9) K/mcL Lymphocytes # 2.0 (0.6-4.6) K/mcL Monocytes # 1.1 (0.0-1.3) K/mcL Eosinophils # 0.3 (0.0-0.6) K/mcL Basophils # 0.0 (0.0-0.2) K/mcL Reactive Lymphocytes Present A (Not Present) Toxic Granulation Present A (Not Present) Platelet Estimate Normal (Normal) Sodium 133 L (136-145) mEq/L Potassium 3.9 (3.5-5.1) mEq/L Chloride 96 L (98-107) mEq/L Carbon Dioxide 27 (23-29) mEq/L BUN 14 (6-20) mg/dL Creatinine 0.93 (0.70-1.30) mg/dL Est GFR ( Amer) > 60 (> 60) Est GFR (Non-Af Amer) > 60 (> 60) BUN/Creatinine Ratio 15 (6-26) Glucose 302 H (70-105) mg/dL Calculated Osmolality 288 (280-300) Calcium 9.3 (8.6-10.3) mg/dL - Radiology Data Radiology results reviewed: Yes I reviewed the patient's radiology results.
--- NOTE | 2019-04-18 18:01 | Internal Med History&Physical ---
Date of Encounter: 04/18/19 Time of Encounter: 18:01 Internal Medicine - H&P: HPI Chief complaint: Rt foot infection Admitted From: Home Plans for Post Hospital Care: Home History of present illness: Mr. Weir is a 43 year old male with past medical history of diabetes who came in with complain of right foot swelling and worsening wound. He was seen by podiatry as outpatient was asked him to come to the hospital after he did not respond to outpatient antibiotics. Patient was sent here for further management given worsening of his wound. He denies any fevers chills. He does have nausea since almost a week. Denies any abdominal pain or diarrhea. He was given Augmentin for 7 days. Since last few days he started noticed draining from his wound which was collected for culture as outpatient as well and in the ER. Blood cultures were collected and patient was given respiratory antibiotics. Foot x-ray showed soft tissue swelling with some mild soft tissue gas and concern for osteomyelitis. Podiatry was consulted. Admission was requested for further management. 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 Psychiatric history: anxiety - Past Surgical History Surgical History: orthopedic, other, other Additional surgical history: right foot surgery - Social History Smoking Status: Never smoker Smokeless Tobacco Status: No Alcohol use: none Drug use: none - Family History Mother Living Status: Still Living Hx Family Endocrine Disorder: Yes Father Living Status: Hx Family Cardiac Disorders: Yes Internal Medicine - H&P: Meds Metformin HCl [Fortamet] 1,500 mg PO DAILY 09/23/16 [History] Collagenase Oint [Santyl] 1 appl TP DAILY 12/13/16 [History] ceFAZolin [Ancef] 1,000 mg IVPB Q8HR 30 Days mls 12/18/16 [Rx] Allergy/AdvReac Type Severity Reaction Status Date / Time No Known Allergies Allergy Verified 04/18/19 14:24 All Systems PM: A 10-system review of systems was performed and is negative for pertinent findings except as documented above in the HPI. - Constitutional Vitals: Temp Pulse Resp BP Pulse Ox 98.2 F 60 16 127/90 100 04/18/19 14:21 04/18/19 17:36 04/18/19 17:36 04/18/19 17:36 04/18/19 17:36 Exam: Constitutional: Vitals as noted. Conversant. No Apparent Distress. Well groomed. No obvious deformities. Eyes : Sclera white, conjunctiva clear, no lid lag, PEARLA. ENT : Grossly normal hearing. Oropharyngeal exam unremarkable. Moist mucus membranes. No JVD, no cervical lymphadenopathy. no thyromegaly or mass. Respiratory : Clear to auscultation bilaterally. No accessory muscle use, rales, rhonchi or wheezes Cardiovascular : RRR, +S1, +S2. no murmur, gallop, rubs. No chest wall tenderness GI/Abdominal : Soft, Non-tender, Non-distended, normal bowel sounds, soft, no peritoneal signs. no orgenomegaly or mass appreciated. no hernia. Musculoskeletal: Rt foot with swelling till above ankle with redness and warmth. draining wound on Rt 5th MTP joint. Neurological: AO X3, CN II-XII grossly intact, grossly normal motor and sensory exam. Skin: No skin rash, lesions or ulcers noted. Internal Med - H&P Results - Labs CBC & Chem 7: 04/18/19 15:27 04/18/19 15:27 Labs: Short CBC 04/18/19 Range/Units 15:27 WBC 10.9 (4.3-11.1) K/mcL Hgb 12.5 L (12.9-16.9) g/dL Hct 37.5 (37.5-50.1) % Plt Count 384 (140-400) K/mcL Neutrophils # 7.4 (1.6-8.9) K/mcL BMP 04/18/19 15:27 Sodium 133 L Potassium 3.9 Chloride 96 L Carbon Dioxide 27 BUN 14 Creatinine 0.93 Glucose 302 H Calcium 9.3 - Impressions ITS Impressions Foot X-Ray 04/18/19 16:31 IMPRESSION: There appears to be some soft tissue swelling about the 5th MTP joint predominantly laterally. Question if there is some mild soft tissue gas in this same region. Findings are concerning for infection with gas-forming organism. Mild rarefaction of the 5th metatarsal head with possibly some erosive change laterally concerning for osteomyelitis. Suggest MRI evaluation. D/ / 04/18/2019 17:00:48 Timothy Soni MD / keli Interpreting Provider: Timothy Soni MD - Assessment and Plan (1) Foot ulcer Current Visit: Yes Status: Acute Assessment and plan: Foot ulcer with signs of acute infection and possible gas gangrene with osteomyelitis Continue patient on empiric vancomycin and Zosyn. We will discuss with podiatry and consider ID consult if needing long-term antibiotics. We will defer MRI to podiatry. Podiatry was consulted by ER. We will keep nothing by mouth after midnight for possible procedure. Qualifiers: Laterality: right Non-pressure ulcer stage: with fat layer exposed Qualified Code(s): L97.512 - Non-pressure chronic ulcer of other part of right foot with fat layer exposed (2) Osteomyelitis Current Visit: Yes Status: Acute Assessment and plan: As above Qualifiers: Osteomyelitis type: unspecified type Osteomyelitis location: foot Laterality: right Qualified Code(s): M86.9 - Osteomyelitis, unspecified (3) Type 2 diabetes mellitus Current Visit: No Status: Acute Assessment and plan: Keep patient on sliding scale insulin and Accu-Cheks. Hold home metformin for now Obtain A1c in the morning. Last reported A1c 7.4. Qualifiers: Diabetes mellitus half-way insulin use: without half-way use Diabetes mellitus complication status: with skin complications Diabetes mellitus complication detail: with other skin ulcer Qualified Code(s): E11.622 - Type 2 diabetes mellitus with other skin ulcer (4) DVT prophylaxis Current Visit: No Status: Acute Assessment and plan: heparin sq - Time Spent With Patient Total time spent is greater than 50% in coordination of care (as documented) at patient's floor/unit and/or counseling patient:
[2019-04-18] MEDS ORDERED: Naloxone 0.4 MG/ML INJ IVP PRN ×2 (18:02→20:27)
[2019-04-18] MEDS ORDERED: Vancomycin 1,000 MG VIAL ONE (18:14)
--- NOTE | 2019-04-18 18:18 | Anesthesia Evaluation PreOp ---
Date of Encounter: 04/18/19 Time of Encounter: 18:30 - Past History Planned Operation: Rt Foot Incision Drainage Cardiac History: Denies any Significant Hx Pulmonary History: Denies Any Significant HX CATEGORY CONSULTANT History: Denies Any Significant HX Other Medical History: Diabetes Type II, Other (Anxiety) Alcohol Use: none Drug use: none Medications and Allergies Metformin HCl [Fortamet] 1,500 mg PO DAILY 09/23/16 [History] Collagenase Oint [Santyl] 1 appl TP DAILY 12/13/16 [History] ceFAZolin [Ancef] 1,000 mg IVPB Q8HR 30 Days mls 12/18/16 [Rx] Allergy/AdvReac Type Severity Reaction Status Date / Time No Known Allergies Allergy Verified 04/18/19 14:24 - Meds/Allergy Pre-op Review Medications Reviewed: Yes Allergies Reviewed: Yes Beta Blockers on Current Med List: No Anesthesia Results - Labs 04/18/19 15:27 04/18/19 15:27 Anesthesia Exam O2 Sat Height 1.91 m Weight 92.079 kg O2 Sat by Pulse Oximetry 100 O2 Sat by Pulse Oximetry 99 Vital Signs Temp Pulse Resp BP Pulse Ox 98.2 F 99 16 120/84 99 04/18/19 14:21 04/18/19 14:21 04/18/19 14:21 04/18/19 14:21 04/18/19 14:21 Height: 6'3 Weight: 203 lbs NPO (# of Hours): MN Pain Scale: 0 - HEENT Pupil (Motor): Pupils equal, EOMI Mallampati: II Oral Opening: Greater than 3 - CATEGORY CONSULTANT LOC: Oriented CATEGORY CONSULTANT Motor: Normal RUE, Normal LUE, Normal RLE, Normal LLE, Normal Face CATEGORY CONSULTANT Sensory: Normal: RUE, LUE, RLE, LLE, Face - Cardiac Rhythm: Regular Murmur: None JVD: No Carotid Bruit: No - Pulmonary Breath Sounds: bilateral Clear Respiratory Effort: Symmetrical Anesthesia Assess/Plan ASA Score: 2 Level of consciousness: Cooperative, Oriented Anesthetic Plan: MAC Autologous Blood: No Monitoring Plan: Standard Monitors Recovery Plan: PACU (Discussed MAC, possible GA, agrees to proceed)
[2019-04-18] MEDS ORDERED: *HR* Midazolam HCl 2 MG/2 ML VIAL ONE (18:21)
[2019-04-18] MEDS ORDERED: *HR* FentaNYL (PF) 100 MCG/2 ML VIAL ONE (18:21)
[2019-04-18] MEDS ORDERED: *HR* Propofol 200 MG/20 ML VIAL IVP ONE (18:22)
--- NOTE | 2019-04-18 18:23 | Podiatry Consult Note ---
Date of Encounter: 04/18/19 Time of Encounter: 17:30 History of Present Illness HPI: Mr. Weir is a 43 year old male who reports the wound on the right foot started last week after he was playing basketball. He says his foot was very red and they called in for an antibiotic which was given to them on Wednesday. The mother says the swelling has went down some but he was seen in the office today with significant redness going up the leg and edema of the foot. Patient was sent to the emergency room for admission. Upon going to the ER and having a workup x-rays did show soft tissue gas and potential changes for osteomyelitis of the fifth metatarsal. This chart is currently being used by another use her hand I and unable to put in a formal assessment in the below will suffice for my assessment and plan Right foot soft tissue gas gangrene A48 with abscess L02.611and acute osteomyelitis of the right 5th metatarsal M86.9 I had a thorough review with the patient and his mother regarding his condition, my findings, and recommendations for treatment. We discussed his x-ray and the severe infection present. We discussed going to the operating room for an incision and drainage, removal of nonviable tissue and debridement of infected bone. Nature this procedure, risks versus benefits potential complications consequences of surgery and his condition were discussed at length. It was made clear that this is a staged procedure and he could require future surgery to wash things out or to try to help the wound heal. They understood that he would have a wound that would be left open to drain. Was discussed that patient with open ulceration is at risk for partial foot/limb loss. No guarantees were made as to the outcome of any procedure. Patient's mother and his question were answered and they are in agreement with the plan of care patient being brought emergently to the operating room for the above procedures. Patient is NPO. 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 Psychiatric history: anxiety - Past Surgical History Surgical History: orthopedic, other, other Additional surgical history: right foot surgery - Social History Smoking Status: Never smoker Smokeless Tobacco Status: No Alcohol use: none Drug use: none - Family History Mother Living Status: Still Living Hx Family Endocrine Disorder: Yes Father Living Status: Hx Family Cardiac Disorders: Yes Medications and Allergies Metformin HCl [Fortamet] 1,500 mg PO DAILY 09/23/16 [History] Collagenase Oint [Santyl] 1 appl TP DAILY 12/13/16 [History] ceFAZolin [Ancef] 1,000 mg IVPB Q8HR 30 Days mls 12/18/16 [Rx] Allergy/AdvReac Type Severity Reaction Status Date / Time No Known Allergies Allergy Verified 04/18/19 14:24 All Systems Reviewed: The remainder of the systems were reviewed and are negative - Constitutional Constitutional: no fever(s) - Cardiovascular Cardiovascular: no chest pain, no dyspnea - Respiratory Respiratory: no cough - Musculoskeletal Musculoskeletal: joint swelling, numbness, other (Pain and right foot) Physical Exam - Constitutional Vitals: Temp Pulse Resp BP Pulse Ox 98.2 F 60 16 127/90 100 04/18/19 14:21 04/18/19 17:36 04/18/19 17:36 04/18/19 17:36 04/18/19 17:36 Exam: Well nourished male in no acute distress Absent protective sensation. Right foot is edematous and erythematous with erythema extending onto the anterior aspect of the leg. There is no crepitus around the fifth MTP joint. There is pain on palpation of the area. Purulent drainage is able to be expressed. No pain elicited with range of motion of the fifth MTP joint. X-ray: Soft tissue gas and changes of the fifth metatarsal distally near the had concerning for osteomyelitis. Results - Labs Result Diagrams: 04/18/19 15:27 04/18/19 15:27 Labs: Abnormal lab results Hgb 12.5 g/dL (12.9-16.9) L 04/18/19 15:27 MPV 9.1 fL (9.4-12.4) L 04/18/19 15:27 Reactive Lymphocytes Present (Not Present) A 04/18/19 15:27 Toxic Granulation Present (Not Present) A 04/18/19 15:27 Sodium 133 mEq/L (136-145) L 04/18/19 15:27 Chloride 96 mEq/L (98-107) L 04/18/19 15:27 Glucose 302 mg/dL (70-105) H 04/18/19 15:27 H & H 04/18/19 Range/Units 15:27 Hgb 12.5 L (12.9-16.9) g/dL Hct 37.5 (37.5-50.1) % All other labs normal. Consult Discharge Plan - Plan
[2019-04-18] MEDS ORDERED: Lidocaine -MPF 2% 2 ML VIAL ONE (18:25)
[2019-04-18] MEDS ORDERED: *HR* Succinylcholine 200 MG/10 ML VIAL IVP ONE (18:26)
[2019-04-18] MEDS ORDERED: Ondansetron 4 MG/2 ML VIAL ONE (18:27)
--- NOTE | 2019-04-18 18:28 | Operative Note ---
Date of procedure: 04/18/19 Pre-op diagnosis: Right foot osteomyelitis, gas gangrene and abscess Post-op diagnosis: same Procedure: Incision and drainage of abscess right foot, debridement of right fifth metatarsal bone Implants: none Complications: none Anesthesia: GETA Local Anesthetics: 1% Lidocaine HCL SubQ (cc) Surgeon: Guerrero Herndon Was there an automotive service assistant present: No Estimated blood loss (cc): 5 Specimen: right foot tissue-micro, right foot 5th met bone micro and path Condition: stable Disposition: PACU Procedure in Detail: Indications: right foot gas gangrene osteomyelitis Patient was placed on the operating room table in the supine position. The right foot was scrubbed prepped and draped in the usual sterile fashion, tourniquet was applied to the right lower extremity and inflated to 250 mmHg and the following procedure began. Incision and drainage right foot. Attention was directed distal aspect of the patient's right foot over the dorsal lateral foot where a #15 blade was used to make an incision full-thickness down to the level of the bone. Purulent drainage was expressed. Arppoximately 5cc of purulent drainage present. Devitalized tissue was present and the devitalized chavira tissue was excised. Tissue was sent to microbiology. The site was flushed with normal sterile saline which contained vancomycin. Debridement of right fifth metatarsal bone. The soft tissue was freed from the distal aspect of the fifth metatarsal in the sagittal saw was used to resect the bone from the fifth metatarsal. The lateral aspect of the fifth metatarsal distally did have some soft bone. This bone was sent to microbiology and pathology. Upon reinspection after thoroughly irrigating the site with saline which contained vancomycin no further devitalized tissue was felt to be present. Retention sutures were placed in the site was packed open with iodoform packing. Tourniquet was deflated. Adequate hemostasis was present. Sterile bandaging applied consisting of Adaptic, 4 x 4 Kerlix and an Armando wrap. Patient tolerated the anesthesia and the procedure well and was escorted to the recovery room with vital signs stable and vascular status intact to all digits of the right foot.
[2019-04-18] MEDS ORDERED: Gadolinium Contrast Agent (WT Based) IV PRN (18:35)
[2019-04-18] MEDS ORDERED: Famotidine 20 MG/2 ML VIAL ONE (18:41)
[2019-04-18] MEDS ORDERED: Acetaminophen IV 1,000 MG/100 ML INFUS..BTL ONE (18:41)
[2019-04-18] MEDS ORDERED: Metoclopramide 10 MG/2 ML VIAL ONE (18:41)
[2019-04-18] MEDS ORDERED: Metoclopramide 10 MG/2 ML VIAL IVP ONE (18:43)
[2019-04-18] MEDS ORDERED: Acetaminophen IV 1,000 MG/100 ML INFUS..BTL IVPB ONE (18:43)
[2019-04-18] MEDS ORDERED: Famotidine 20 MG/2 ML VIAL IVP ONE (18:43)
[2019-04-18] MEDS ORDERED: Lidocaine 1% 20 ML MDV ONE (18:45)
[2019-04-18] MEDS ORDERED: D5% in Water 1,000 ML IVC PRN (21:22)
[2019-04-18] MEDS ORDERED: Dextrose Gel 15 GM/37.5 ML TUBE PO PRN ×2 (21:22)
[2019-04-18] MEDS ORDERED: *HR* Dextrose 50 % in Water (Syg) 50 ML SYRINGE IVP PRN (21:22)
[2019-04-18] MEDS ORDERED: *HR* Heparin 5,000 UNIT/ML VIAL SQ SCH (22:00)
[2019-04-18] MEDS: *HR* Heparin 5,000 UNIT/ML VIAL SQ SCH (22:03)
[2019-04-18] MEDS: Insulin LISPRO 300 UNITS/3 ML VIAL SQ SCH (22:03)
--- NOTE | 2019-04-18 23:12 | Emergency Department Note ---
Disposition Clinical Impression: Foot ulcer Qualifiers: Laterality: right Non-pressure ulcer stage: with fat layer exposed Qualified Code(s): L97.512 - Non-pressure chronic ulcer of other part of right foot with fat layer exposed Osteomyelitis Qualifiers: Osteomyelitis type: unspecified type Osteomyelitis location: foot Laterality: right Qualified Code(s): M86.9 - Osteomyelitis, unspecified Disposition: Admitted As Inpatient Condition: Fair Time of Disposition: 17:16 General Adult HPI - General Chief complaint: ED Wound/Laceration Stated complaint: Right leg/foot infection Time Seen by Provider: 04/18/19 16:31 Source: patient, family Limitations: no limitations - History of Present Illness Pain Scale: 0 - Related Data Home Medications Medication Instructions Recorded Confirmed Metformin HCl [Fortamet] 1,500 mg PO DAILY 09/23/16 12/13/16 Collagenase Oint [Santyl] 1 appl TP DAILY 12/13/16 12/13/16 Previous Rx's Medication Instructions Recorded ceFAZolin [Ancef] 1,000 mg IVPB Q8HR 30 Days mls 12/18/16 Allergies Allergy/AdvReac Type Severity Reaction Status Date / Time No Known Allergies Allergy Verified 04/18/19 14:24 Past Medical History - Past Medical History Medical history: Reports: diabetes, thyroid disease, other Surgical history: Reports: orthopedic, other, other Psychiatric history: Reports: anxiety - Social History Smoking Status: Never smoker Smokeless Tobacco Status: No Alcohol use: Reports: none Drug use: Reports: none Physical Exam - General Limitations: no limitations General appearance: alert, in no apparent distress Course Vital Signs Temperature 98.2 F 04/18/19 14:21 Pulse Rate 99 04/18/19 14:21 Respiratory Rate 16 04/18/19 14:21 Blood Pressure 120/84 04/18/19 14:21 O2 Sat by Pulse Oximetry 99 04/18/19 14:21 Temperature 98.2 F 04/18/19 14:21 Pulse Rate 99 04/18/19 18:45 Respiratory Rate 17 04/18/19 18:45 Blood Pressure 135/87 04/18/19 18:45 O2 Sat by Pulse Oximetry 100 04/18/19 20:31 Oxygen Delivery Oxygen Delivery Room Air Medical Decision Making - Lab Data Result diagrams: 04/18/19 15:27 04/18/19 15:27 Lab Results 04/18/19 04/18/19 Range/Units 15:27 15:27 WBC 10.9 (4.3-11.1) K/mcL RBC 4.20 (4.19-5.50) M/mcL Hgb 12.5 L (12.9-16.9) g/dL Hct 37.5 (37.5-50.1) % MCV 89.3 (83.0-100.0) fL MCH 29.8 (28.0-33.3) pg MCHC 33.3 (31.6-35.5) g/dL RDW 12.6 (11.5-14.5) % Plt Count 384 (140-400) K/mcL MPV 9.1 L (9.4-12.4) fL Immature Gran % 0.9 (0-4) % Seg Neutrophils % 67.5 % Lymphocytes % 18.7 % Monocytes % 10.1 % Eosinophils % 2.4 % Basophils % 0.4 % Neutrophils # 7.4 (1.6-8.9) K/mcL Lymphocytes # 2.0 (0.6-4.6) K/mcL Monocytes # 1.1 (0.0-1.3) K/mcL Eosinophils # 0.3 (0.0-0.6) K/mcL Basophils # 0.0 (0.0-0.2) K/mcL Reactive Lymphocytes Present A (Not Present) Toxic Granulation Present A (Not Present) Platelet Estimate Normal (Normal) Sodium 133 L (136-145) mEq/L Potassium 3.9 (3.5-5.1) mEq/L Chloride 96 L (98-107) mEq/L Carbon Dioxide 27 (23-29) mEq/L BUN 14 (6-20) mg/dL Creatinine 0.93 (0.70-1.30) mg/dL Est GFR ( Amer) > 60 (> 60) Est GFR (Non-Af Amer) > 60 (> 60) BUN/Creatinine Ratio 15 (6-26) Glucose 302 H (70-105) mg/dL Calculated Osmolality 288 (280-300) Calcium 9.3 (8.6-10.3) mg/dL Attestation Statement - Attestation Attestation: I examined this patient and my medical decision-making was reviewed with the Resident Physician. I agree with the documented findings, disposition and treatment plan as described except to the extent set forth below. Physical 3-year-old gentleman presents to emergency department with chief complaint of infection and right foot. Patient reports he was seen by podiatry today and after he noticed that he had swelling and drainage out of the right foot on the lateral aspect of his foot. Patient reports his had no fevers noticed that he had redness streaking up his right lower extremity. Physical exam patient awake alert no acute distress there is erythema streaking up the right calf there is a Boxley dime-sized ulceration at the end of the fifth metatarsal. There is purulent drainage from the wound. Medical decision management x-ray shows evidence of possible osteomyelitis the patient was started on IV anabiotic emergency department the case was discussed with podiatry and the hospitalist patient will be admitted to the hospital service with podiatry consult.
[2019-04-18] MEDS: Piperacillin/Tazobactam 3.375 GM in 0.9 % Sodium Chloride Mini Bag 100 ML IVPB SCH (23:35)
[2019-04-19] MEDS ORDERED: Piperacillin/Tazobactam 3.375 GM in 0.9 % Sodium Chloride Mini Bag 100 ML IVPB SCH
[2019-04-19] MEDS: *HR* Heparin 5,000 UNIT/ML VIAL SQ SCH ×3 (05:13→23:02)
[2019-04-19 07:00] LABS: Basophils % 0.4 %; Eosinophils # 0.2 K/mcL (0.0-0.6); Eosinophils % 2.4 %; Hematocrit 38.2 % (37.5-50.1); Hemoglobin 12.5 g/dL (12.9-16.9); Immature Granulocytes % 1.2 % (0-4); Lymphocytes # 1.8 K/mcL (0.6-4.6); Lymphocytes % 17.9 %; Mean Corpuscular HGB Conc 32.7 g/dL (31.6-35.5); Mean Corpuscular Hemoglobin 29.1 pg (28.0-33.3); Mean Corpuscular Volume 88.8 fL (83.0-100.0); Mean Platelet Volume 8.9 fL (9.4-12.4); Monocytes # 0.9 K/mcL (0.0-1.3); Monocytes % 9.1 %; Neutrophils # 6.9 K/mcL (1.6-8.9); Platelet Count 415 K/mcL (140-400); Red Cell Distribution Width 12.7 % (11.5-14.5)
[2019-04-19 07:16] LABS: BUN/Creatinine Ratio 13 (6-26); Blood Urea Nitrogen 12 mg/dL (6-20); Calcium 9.1 mg/dL (8.6-10.3); Carbon Dioxide 29 mEq/L (23-29); Chloride 98 mEq/L (98-107); Glucose 196 mg/dL (70-105); Osmolality,Calculated 291 (280-300); Potassium 3.9 mEq/L (3.5-5.1); Sodium 138 mEq/L (136-145); eGFR For African Americans > 60 (> 60); eGFR For Non-African Americans > 60 (> 60)
[2019-04-19] MEDS ORDERED: Insulin LISPRO 300 UNITS/3 ML VIAL SQ SCH (08:00)
[2019-04-19] MEDS: Piperacillin/Tazobactam 3.375 GM in 0.9 % Sodium Chloride Mini Bag 100 ML IVPB SCH ×3 (08:18→23:03)
[2019-04-19] MEDS: Insulin LISPRO 300 UNITS/3 ML VIAL SQ SCH ×4 (08:19→19:38)
[2019-04-19 09:02] LABS: Estimated Average Glucose 183 mg/dl
--- NOTE | 2019-04-19 11:27 | Internal Med Progress Note ---
Hospitalist Progress Note - Encounter Date of Encounter: 04/19/19 Time of Encounter: 11:25 - Exam Vitals: Temp Pulse Resp BP Pulse Ox 98.0 F 92 14 106/73 97 04/19/19 10:09 04/19/19 10:09 04/19/19 10:09 04/19/19 10:04/19/19 10:09 Exam: Constitutional: Vitals as noted. Conversant. No Apparent Distress. Well groomed. No obvious deformities. Eyes : Sclera white, conjunctiva clear, no lid lag, PEARLA. ENT : Grossly normal hearing. Oropharyngeal exam unremarkable. Moist mucus membranes. No JVD, no cervical lymphadenopathy. no thyromegaly or mass. Respiratory : Clear to auscultation bilaterally. No accessory muscle use, r ales, rhonchi or wheezes Cardiovascular : RRR, +S1, +S2. no murmur, gallop, rubs. No chest wall tenderness GI/Abdominal : Soft, Non-tender, Non-distended, normal bowel sounds, soft, no peritoneal signs. no orgenomegaly or mass appreciated. no hernia. Musculoskeletal: Rt foot with swelling till above ankle with redness and warmth. Dressing placed on the right foot. No soaking of dressing with blood.. Neurological: AO X3, CN II-XII grossly intact, grossly normal motor and sensory exam. Skin: No skin rash, lesions or ulcers noted. - Assessment and Plan (1) Osteomyelitis Current Visit: Yes Status: Acute Assessment and Plan: She had I adn D of right fifth toe. Patient is currently on vancomycin and Zosyn. Podiatry CONSULT. APPRECIATE PODIATRY INPUT. WE WILL WAIT FOR THE CULTURE REPORT. (2) Foot ulcer Current Visit: Yes Status: Acute Assessment and Plan: Management as above. (3) Type 2 diabetes mellitus Current Visit: No Status: Acute Assessment and Plan: Keep patient on sliding scale insulin and Accu-Cheks. Hold home metformin for now. (4) DVT prophylaxis Current Visit: No Status: Acute Assessment and Plan: heparin sq - Time Spent with Patient Total time spent is greater than 50% in coordination of care (as documented) at patient's floor/unit and/or counseling patient: Internal Medicine: Result - Labs CBC & Chem 7: 04/19/19 06:21 08/28/19 06:21 Labs: Short CBC 04/18/19 04/19/19 Range/Units 15:27 06:21 WBC 10.9 10.0 (4.3-11.1) K/mcL Hgb 12.5 L 12.5 L (12.9-16.9) g/dL Hct 37.5 38.2 (37.5-50.1) % Plt Count 384 415 H (140-400) K/mcL Neutrophils # 7.4 6.9 (1.6-8.9) K/mcL BMP 04/18/19 04/19/19 15:27 06:21 Sodium 133 L 138 Potassium 3.9 3.9 Chloride 96 L 98 Carbon Dioxide 27 29 BUN 14 12 Creatinine 0.93 0.96 Glucose 302 H 196 H Calcium 9.3 9.1 - Impressions Impressions Foot X-Ray 04/18/19 16:31 IMPRESSION: There appears to be some soft tissue swelling about the 5th MTP joint predominantly laterally. Question if there is some mild soft tissue gas in this same region. Findings are concerning for infection with gas-forming organism. Mild rarefaction of the 5th metatarsal head with possibly some erosive change laterally concerning for osteomyelitis. Suggest MRI evaluation. D/ / 04/18/2019 17:00:48 Timothy Soni MD / keli Interpreting Provider: Timothy Soni MD Consult Discharge Plan - Plan Referrals: Barby Godwin MD [Primary Care Provider] - (1) Osteomyelitis Qualifiers: Osteomyelitis type: unspecified type Osteomyelitis location: foot Laterality: right Qualified Code(s): M86.9 - Osteomyelitis, unspecified (2) Foot ulcer Qualifiers: Laterality: right Non-pressure ulcer stage: with fat layer exposed Qualified Code(s): L97.512 - Non-pressure chronic ulcer of other part of right foot with fat layer exposed (3) Type 2 diabetes mellitus Qualifiers: Diabetes mellitus senior living insulin use: without rodent exterminator use Diabetes mellitus complication status: with skin complications Diabetes mellitus complication detail: with other skin ulcer Qualified Code(s): E11.622 - Type 2 diabetes mellitus with other skin ulcer
--- NOTE | 2019-04-19 12:43 | Podiatry Progress Note ---
Date of Encounter: 04/19/19 Time of Encounter: 11:10 - Assessment and Plan (1) Acute osteomyelitis of metatarsal bone of right foot Current Visit: Yes Status: Acute Assessment: S/P Incision and drainage of abscess right foot, debridement of right fifth me tatarsal bone with Dr. Herndon on 04/18/19 Opening noted to distal aspect of incision, packing noted, sutures to proximal incision well approximated Erythema noted to right foot and right lower extremity 1/4 edema noted 2/4 DP/PT RLE WBC 10.0, afebrile Path pending, surgical cultures pending Plan: Recommend ID consult for possible IV atb management outpatient Postoperative shoe ordered, heel weight bearing only, limited weight bearing Local wound care, dressing changed Cleansed right foot with 0.9 NS Packed with 1/4 inch iodaform gauze, covered with adaptic, 4x4 dry gauze, and kerlix Secured with ALEX wrap Subjective Principal diagnosis: Gas gangrene, OM Interval history: Patient awake in bed. Alert and oriented. Mother at bedside. Patient denies any fevers, chills, nausea, vomiting, or diarrhea. Denies any calf pain, chest pain, or shortness of breath. Reports he would like to go home before the weekend is over. Discussed awaiting pathology results to determine if patient will need outpatient IV atb or oral atb. Patient and mother verbalized understanding. No other questions or concerns at this time. Objective - Vital Signs Vital Signs: Vital Signs Temp Pulse Resp BP Pulse Ox 04/19/19 10:09 98.0 F 92 14 106/73 97 04/19/19 08:25 97 04/19/19 07:12 98.2 F 84 14 113/77 98 04/19/19 03:34 98.1 F 83 14 107/71 99 04/19/19 01:15 98.1 F 82 14 115/84 100 04/18/19 23:32 98.0 F 83 15 117/81 100 04/18/19 22:32 98.2 F 83 14 116/76 99 04/18/19 21:32 98.0 F 82 14 122/84 98 04/18/19 21:02 98.0 F 82 14 118/80 99 04/18/19 20:32 97.9 F 84 14 115/78 99 04/18/19 20:31 100 04/18/19 18:45 99 17 135/87 100 04/18/19 17:36 60 16 127/90 100 04/18/19 14:21 98.2 F 99 16 120/84 99 Intake and Output 04/18/19 04/19/19 04/19/19 23:59 07:59 15:59 Intake Total 100 / 100 300 / 790 490 / 790 Output Total 300 / 300 600 / 850 250 / 850 Balance -200 / -200 -300 / -60 240 / -60 Intake: IV Fluids 100 / 100 100 / 350 250 / 350 Zosyn 3.375 GM In 0.9 % Sodium 100 / 100 100 / 100 Chloride (Mini-Bag +) 100 ML @ 25 mls/hr IVPB Q8HR [facility] Rx#: [id number] Vancocin 1,500 MG In 0.9 % 250 / 250 Sodium Chloride 250 ML @ 166.67 mls/hr IVPB Q12H [facility] Rx#: [id number] Oral 200 / 440 240 / 440 Output: Urine 300 / 300 600 / 850 250 / 850 Other: Meal Breakfast Percent of Meal Consumed 75% Blood Glucose* 207 192 203 - Exam Exam: Constitiutional: Alert and oriented. Mentally handicapped. Well nourished. No acute distress noted Vascular: 2/4 DP/PT RLE. CFT <3 sec to all digits RLE, warm to warm from tibia to toes RLE, no calf pain with squeeze RLE Neurologic: Absent sensation to touch, normal plantar response Dermatologic: Incision noted to right lateral 5th metatarsal with opening to the distal aspect of incision. Packing noted. Proximal sutures in tact, well approximated. Erythema noted to foot and lower extremity. Mild edema noted. Musculoskeletal: 4/5 muscle strength and normal tone RLE - Lab Result Diagrams: 04/19/19 06:21 04/19/19 06:21 Labs: Abnormal lab results Hgb 12.5 g/dL (12.9-16.9) L 04/19/19 06:21 Plt Count 415 K/mcL (140-400) H 04/19/19 06:21 MPV 8.9 fL (9.4-12.4) L 04/19/19 06:21 Reactive Lymphocytes Present (Not Present) A 08/27/19 15:27 Toxic Granulation Present (Not Present) A 04/18/19 15:27 Sodium 133 mEq/L (136-145) L 04/18/19 15:27 Chloride 96 mEq/L (98-107) L 04/18/19 15:27 Glucose 196 mg/dL (70-105) H 04/19/19 06:21 POC Glucose 203 mg/dL (70-99) H 04/19/19 11:07 Hemoglobin A1c 8.0 % (-5.6) H 04/19/19 06:21 Microbiology, Last 48 Hours 04/18/19 16:54 Blood Culture - Preliminary Peripheral Venipuncture Culture is incubating and being continuously monitored for growth. Final report to follow. 04/18/19 16:54 Blood Culture - Preliminary Peripheral Venipuncture Culture is incubating and being continuously monitored for growth. Final report to follow. Consult Discharge Plan - Plan Referrals: Barby Godwin MD [Primary Care Provider] -
[2019-04-20] MEDS: *HR* Heparin 5,000 UNIT/ML VIAL SQ SCH ×3 (06:01→22:41)
[2019-04-20 06:21] LABS: Basophils % 0.5 %; Eosinophils # 0.3 K/mcL (0.0-0.6); Hematocrit 32.8 % (37.5-50.1); Immature Granulocytes % 1.1 % (0-4); Lymphocytes # 2.1 K/mcL (0.6-4.6); Lymphocytes % 24.8 %; Mean Corpuscular HGB Conc 32.6 g/dL (31.6-35.5); Mean Corpuscular Hemoglobin 29.8 pg (28.0-33.3); Mean Corpuscular Volume 91.4 fL (83.0-100.0); Mean Platelet Volume 8.8 fL (9.4-12.4); Monocytes # 0.7 K/mcL (0.0-1.3); Monocytes % 8.4 %; Neutrophils # 5.2 K/mcL (1.6-8.9); Platelet Count 357 K/mcL (140-400); Red Blood Count 3.59 M/mcL (4.19-5.50); Red Cell Distribution Width 12.5 % (11.5-14.5); Segmented Neutrophils % 62.2 %; White Blood Count 8.4 K/mcL (4.3-11.1)
[2019-04-20 06:32] LABS: BUN/Creatinine Ratio 10 (6-26); Blood Urea Nitrogen 12 mg/dL (6-20); Calcium 8.8 mg/dL (8.6-10.3); Carbon Dioxide 30 mEq/L (23-29); Chloride 102 mEq/L (98-107); Glucose 176 mg/dL (70-105); Hemoglobin 10.7 g/dL (12.9-16.9); Osmolality,Calculated 292 (280-300); Potassium 4.4 mEq/L (3.5-5.1); Sodium 139 mEq/L (136-145); eGFR For African Americans > 60 (> 60); eGFR For Non-African Americans > 60 (> 60)
[2019-04-20] MEDS: Insulin LISPRO 300 UNITS/3 ML VIAL SQ SCH ×4 (08:46→22:41)
[2019-04-20] MEDS: Piperacillin/Tazobactam 3.375 GM in 0.9 % Sodium Chloride Mini Bag 100 ML IVPB SCH ×2 (08:47→15:46)
--- NOTE | 2019-04-20 09:45 | Podiatry Progress Note ---
Date of Encounter: 04/20/19 Time of Encounter: 09:43 - Assessment and Plan (1) Acute osteomyelitis of metatarsal bone of right foot Current Visit: Yes Status: Acute Assessment: S/P Incision and drainage of abscess right foot, debridement of right fifth me tatarsal bone with Dr. Herndon on 04/18/19 Opening noted to distal aspect of incision, packing noted, sutures to proximal incision well approximated Erythema noted to right foot and right lower extremity 1/4 edema noted 2/4 DP/PT RLE WBC 8.4, afebrile Path pending, surgical cultures pending Plan: ID consulted for ATB management- appreciate recommendations Postoperative shoe in place, heel weight bearing only, limited weight bearing Local wound care, dressing changed Cleansed right foot with 0.9 NS Painted periwound area with betadine, packed with 1/4 inch iodaform gauze, covered with adaptic, 4x4 dry gauze, and kerlix Secured with ALEX wrap Subjective Principal diagnosis: Gas gangrene, OM Interval history: Patient awake in bed. Alert and oriented. Patient denies any fevers, chills, nausea, vomiting, or diarrhea. Denies any calf pain, chest pain, or shortness of breath. Denies any pain. Reports he would like to go home before the weekend is over. Discussed awaiting pathology results. Verbalized understanding. No other q uestions or concerns at this time. Objective - Vital Signs Vital Signs: Vital Signs Temp Pulse Resp BP Pulse Ox 04/20/19 06:55 98.2 F 78 16 103/67 98 04/20/19 03:32 97.9 F 80 17 110/74 97 04/19/19 19:51 97.9 F 88 17 106/74 96 04/19/19 13:59 98.2 F 91 14 120/80 97 04/19/19 10:09 98.0 F 92 14 106/73 97 Intake and Output 04/19/19 04/20/19 04/20/19 23:59 07:59 15:59 Intake Total 570 / 1720 100 / 100 Balance 570 / 870 100 / 100 Intake: IV Fluids 450 / 800 100 / 100 Zosyn 3.375 GM In 0.9 % Sodium 200 / 300 100 / 100 Chloride (Mini-Bag +) 100 ML @ 25 mls/hr IVPB Q8HR [facility] Rx#: [id number] Vancocin 1,500 MG In 0.9 % 250 / 500 Sodium Chloride 250 ML @ 166.67 mls/hr IVPB Q12H [facility] Rx#: [id number] Oral 120 / 920 Other: Meal Dinner Percent of Meal Consumed 25% Blood Glucose* 195 171 - Exam Exam: Constitiutional: Alert and oriented. Mentally handicapped. Well nourished. No acute distress noted Vascular: 2/4 DP/PT RLE. CFT <3 sec to all digits RLE, warm to warm from tibia to toes RLE, no calf pain with squeeze RLE Neurologic: Absent sensation to touch, normal plantar response Dermatologic: Incision noted to right lateral 5th metatarsal with opening to the distal aspect of incision. Packing noted. Proximal sutures in tact, well approximated. Erythema noted to foot and lower extremity. Mild edema noted. Musculoskeletal: 4/5 muscle strength and normal tone RLE - Lab Result Diagrams: 04/20/19 05:56 04/20/19 05:56 Labs: Abnormal lab results RBC 3.59 M/mcL (4.19-5.50) L 04/20/19 05:56 Hgb 10.7 g/dL (12.9-16.9) L D 04/20/19 05:56 Hct 32.8 % (37.5-50.1) L 04/20/19 05:56 Plt Count 415 K/mcL (140-400) H 04/19/19 06:21 MPV 8.8 fL (9.4-12.4) L 04/20/19 05:56 Reactive Lymphocytes Present (Not Present) A 04/18/19 15:27 Toxic Granulation Present (Not Present) A 04/18/19 15:27 Sodium 133 mEq/L (136-145) L 04/18/19 15:27 Chloride 96 mEq/L (98-107) L 04/18/19 15:27 Carbon Dioxide 30 mEq/L (23-29) H 04/20/19 05:56 Glucose 176 mg/dL (70-105) H 04/20/19 05:56 POC Glucose 195 mg/dL (70-99) H 04/19/19 19:55 Hemoglobin A1c 8.0 % (-5.6) H 04/19/19 06:21 Vancomycin Trough 15 mcg/mL (5-10) H 04/20/19 05:56 Microbiology, Last 48 Hours 04/19/19 Unknown Surgical Biopsy Culture - Preliminary Right Foot 04/19/19 Unknown Surgical Biopsy Culture - Preliminary Right Foot 04/18/19 Unknown Anaerobic Culture - Preliminary Right Foot Culture is incubating. 04/18/19 20:01 Anaerobic Culture - Preliminary Right Foot Culture is incubating. 04/18/19 16:54 Blood Culture - Preliminary Peripheral Venipuncture Culture is incubating and being continuously monitored for growth. Final report to follow. 04/18/19 16:54 Blood Culture - Preliminary Peripheral Venipuncture Culture is incubating and being continuously monitored for growth. Final report to follow. Consult Discharge Plan - Plan Referrals: Barby Godwin MD [Primary Care Provider] -
--- NOTE | 2019-04-20 13:36 | Internal Med Progress Note ---
Hospitalist Progress Note - Encounter Date of Encounter: 04/20/19 Time of Encounter: 13:34 - Subjective Interval History: Patient was seen and examined at bedside today. Patient denied any acute issues and concerns or night. Patient denies any pain. Patient reports he has dressing in place and he received postoperative shoe yesterday. - Exam Vitals: Temp Pulse Resp BP Pulse Ox 98.0 F 80 16 118/78 97 04/20/19 11:41 04/20/19 11:41 04/20/19 11:41 04/20/19 11:41 04/20/19 11:41 Exam: Constitutional: Vitals as noted. Conversant. No Apparent Distress. Well groomed. No obvious deformities. Eyes : Sclera white, conjunctiva clear, no lid lag, PEARLA. ENT : Grossly normal hearing. Oropharyngeal exam unremarkable. Moist mucus membranes. No JVD, no cervical lymphadenopathy. no thyromegaly or mass. Respiratory : Clear to auscultation bilaterally. No accessory muscle use, rales, rhonchi or wheezes Cardiovascular : RRR, +S1, +S2. no murmur, gallop, rubs. No chest wall tenderness GI/Abdominal : Soft, Non-tender, Non-distended, normal bowel sounds, soft, no peritoneal signs. no orgenomegaly or mass appreciated. no hernia. Musculoskeletal: Rt foot with swelling till above ankle with redness and warmth. Dressing placed on the right foot. No soaking of dressing with blood.. Postoperative shoe and place a right foot. Neurological: AO X3, CN II-XII grossly intact, grossly normal motor and sensory exam. Skin: No skin rash, lesions or ulcers noted. - Assessment and Plan (1) Osteomyelitis Current Visit: Yes Status: Acute Assessment and Plan: Patient presented to the hospital with diabetic foot ulcer. Upon initial evaluation patient cannot rule out acute osteomyelitis of metatarsal bone of her right foot at the right fifth toe. Podiatry was consulted and patient is status post incision and drainage of the abscess of right foot which was done on 04/18/2019. Patient's WBC is down trending. Patient is afebrile. We will continue IV antibiotic vancomycin and Zosyn. Infectious disease on consult. We will appreciate recommendation from infectious disease regarding the duration of antibiotic.. (2) Foot ulcer Current Visit: Yes Status: Acute Assessment and Plan: Management as above. (3) Type 2 diabetes mellitus Current Visit: No Status: Acute Assessment and Plan: Keep patient on sliding scale insulin and Accu-Cheks. Hold home metformin for now. (4) DVT prophylaxis Current Visit: No Status: Acute Assessment and Plan: heparin sq - Time Spent with Patient Total time spent is greater than 50% in coordination of care (as documented) at patient's floor/unit and/or counseling patient: Internal Medicine: Result - Labs CBC & Chem 7: 04/20/19 05:56 04/20/19 05:56 Labs: Short CBC 04/20/19 Range/Units 05:56 WBC 8.4 (4.3-11.1) K/mcL Hgb 10.7 L D (12.9-16.9) g/dL Hct 32.8 L (37.5-50.1) % Plt Count 357 (140-400) K/mcL Neutrophils # 5.2 (1.6-8.9) K/mcL BMP 04/20/19 05:56 Sodium 139 Potassium 4.4 Chloride 102 Carbon Dioxide 30 H BUN 12 Creatinine 1.24 Glucose 176 H Calcium 8.8 Consult Discharge Plan - Plan Referrals: Barby Godwin MD [Primary Care Provider] - (1) Osteomyelitis Qualifiers: Osteomyelitis type: unspecified type Osteomyelitis location: foot La terality: right Qualified Code(s): M86.9 - Osteomyelitis, unspecified (2) Foot ulcer Qualifiers: Laterality: right Non-pressure ulcer stage: with fat layer exposed Qualified Code(s): L97.512 - Non-pressure chronic ulcer of other part of right foot with fat layer exposed (3) Type 2 diabetes mellitus Qualifiers: Diabetes mellitus usp insulin use: without usp use Diabetes mellitus complication status: with skin complications Diabetes mellitus complication detail: with other skin ulcer Qualified Code(s): E11.622 - Type 2 diabetes mellitus with other skin ulcer
--- NOTE | 2019-04-20 14:39 | Infectious Disease Consult ---
Infectious Disease-Consult - Encounter Date/Time Date of Encounter: 04/20/19 Time of Encounter: 14:28 - Data of Consult Patient: new to practice Reason for consult: Antibiotic management for osteomyelitis. Consult date: 04/20/19 Requesting Physician: Hubert Monzon MD Primary Care Provider: Barby Godwin MD - [facility] HPI: Patient is a 43-year-old gentleman who presented to [facility] 04/18/2019 with right foot infection. We are consulted on 04/20/2019 for antibiotic recommendations for osteomyelitis. Patient is a 43-year-old gentleman with past medical history significant for diabetes mellitus [id number] presented to the emergency department with a right foot wound that apparently started about 1 week prior to admission while he was playing basketball. Patient apparently had significant redness pain and swelling. Antibiotics were and Wednesday prior to admission. Patient denies any fevers, chills no rigors. No chest pain, no shortness of breath. NO abodminal pain no diarrhea Since admission, patient has been Afebrile, no tachycardia, no tachypnea. Labs on admission reveal normal WBC, BUN 14, Cr 0.93. Xray right foot reveals infection with concern for gas forming organism. Patient was taken to the OR 04/18/2019 where he underwent incision and drainage of abscess right foot, debridement of right fifth metatarsal bone. All are no mentions that the fifth metatarsal bone was soft distally suggesting osteomyelitis. Intra-Op cultures so far positive for gram-positive cocci patient was started on empiric antibiotics including vancomycin and Zosyn. We were asked to evaluate the patient and make further recommendations. - ROS Review of Systems: 10 point review of systems done, negative other for what mentioned in the history of present illness - Results CBC & Chem 7: 04/20/19 05:56 04/20/19 05:56 - Exam Vitals: Temp Pulse Resp BP Pulse Ox 98.0 F 80 16 118/78 97 04/20/19 11:41 04/20/19 11:41 04/20/19 11:41 04/20/19 11:41 04/20/19 11:41 Exam: GENERAL: Laying in bed, appears comfortable. HEAD: Normocephalic atraumatic EYES: PERRLA, EOMI, no conjunctival hemorrhage, sclera anicteric ENT: Mucous membranes moist, no oral thrush NECK: Supple. No meningeal signs. No masses LUNGS: Chest expanding symmetrically. Lungs sounds audible both lung guevara. No wheezing, no rhonchi CV: RRR, S1S2, ABDOMEN: Soft, nontender, nondistended. Bowel sounds audible BACK: No CVA tenderness. Normal inspection. No tenderness over the spine EXTREMITY: Adequate perfusion. No joint effusion. SKIN: Normal color. No rash. NEURO: Awake alert oriented 3. No obvious focal deficit PSYCH: Calm and appropriate. No agitation. Levothyroxine Sodium [Levoxyl] 50 mcg PO QAM 04/19/19 [History] Metformin HCl [Fortamet] 2,000 mg PO QPM 04/19/19 [History] Allergy/AdvReac Type Severity Reaction Status Date / Time No Known Allergies Allergy Verified 04/18/19 14:24 - Assessment and Plan (1) Acute osteomyelitis of metatarsal bone of right foot Current Visit: Yes Status: Acute Status post incision and drainage of abscess right foot, debridement of fifth metatarsal bone. Intra-Op findings concerning for osteomyelitis with bone Intra-Op cultures positive for gram-positive cocci Patient started empirically on vancomycin/Zosyn SNOMED Code(s): 931382673 (2) Cellulitis of foot Current Visit: No Status: Acute SNOMED Code(s): 594631846 (3) Ulcer of left lower leg Current Visit: No Status: Acute Qualifiers: Non-pressure ulcer stage: limited to breakdown of skin Qualified Code(s): L97.921 - Non-pressure chronic ulcer of unspecified part of left lower leg limited to breakdown of skin SNOMED Code(s): 844084547, 053027665 (4) Type 2 diabetes mellitus Current Visit: No Status: Acute Qualifiers: Diabetes mellitus prison insulin use: without warehouse coordinator use Diabetes mellitus complication status: with skin complications Diabetes mellitus complication detail: with other skin ulcer Qualified Code(s): E11.622 - Type 2 diabetes mellitus with other skin ulcer SNOMED Code(s): 29340822 - Recommendations Recommendations: Check baseline labs including ESR, CRP Monitor kidney function closely because creatinine seems to be creeping up from 0.93-1.24 We will discuss with pharmacy probably needs to dose adjust the vancomycin Continue vancomycin for now we will goal vancomycin trough around 15 Continue Zosyn for now Patient will need a PICC line prior to discharge We will discharge IV antibiotics once cultures finalize and we have a better idea what antibiotics to send patient on d/w hospitalist team Past Med Surg Social Fam HX - Past Medical History Medical history: diabetes, thyroid disease, other Additional medical history: 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
[2019-04-21] MEDS: Piperacillin/Tazobactam 3.375 GM in 0.9 % Sodium Chloride Mini Bag 100 ML IVPB SCH ×4 (01:19→23:59)
[2019-04-21 04:51] LABS: Basophils % 0.5 %; Eosinophils # 0.2 K/mcL (0.0-0.6); Hematocrit 33.8 % (37.5-50.1); Hemoglobin 10.7 g/dL (12.9-16.9); Immature Granulocytes % 0.8 % (0-4); Lymphocytes # 1.8 K/mcL (0.6-4.6); Lymphocytes % 23.1 %; Mean Corpuscular HGB Conc 31.7 g/dL (31.6-35.5); Mean Corpuscular Hemoglobin 28.7 pg (28.0-33.3); Mean Corpuscular Volume 90.6 fL (83.0-100.0); Mean Platelet Volume 8.8 fL (9.4-12.4); Monocytes # 0.7 K/mcL (0.0-1.3); Monocytes % 9.3 %; Platelet Count 347 K/mcL (140-400); Red Blood Count 3.73 M/mcL (4.19-5.50); Red Cell Distribution Width 12.4 % (11.5-14.5); Segmented Neutrophils % 63.3 %
[2019-04-21 05:14] LABS: BUN/Creatinine Ratio 12 (6-26); Blood Urea Nitrogen 15 mg/dL (6-20); Calcium 8.6 mg/dL (8.6-10.3); Carbon Dioxide 25 mEq/L (23-29); Chloride 102 mEq/L (98-107); Glucose 162 mg/dL (70-105); Osmolality,Calculated 288 (280-300); Potassium 3.9 mEq/L (3.5-5.1); Sodium 137 mEq/L (136-145); eGFR For African Americans > 60 (> 60); eGFR For Non-African Americans > 60 (> 60)
[2019-04-21] MEDS: *HR* Heparin 5,000 UNIT/ML VIAL SQ SCH ×3 (05:56→22:22)
[2019-04-21] MEDS: Insulin LISPRO 300 UNITS/3 ML VIAL SQ SCH ×4 (08:38→22:19)
[2019-04-21] MEDS ORDERED: Lidocaine -MPF 1% 5 ML AMPUL INFILT ONE (09:24)
--- NOTE | 2019-04-21 09:53 | Internal Med Progress Note ---
Hospitalist Progress Note - Encounter Date of Encounter: 04/21/19 Time of Encounter: 09:51 - Subjective Interval History: Patient was seen and examined at bedside today. Patient is doing well. Patient denied any acute issues and concerns ovenight. Patient denied any right leg pain. - Exam Vitals: Temp Pulse Resp BP Pulse Ox 97.9 F 80 17 111/78 99 04/21/19 06:50 04/21/19 06:50 04/21/19 06:50 04/21/19 06:50 04/21/19 06:50 Exam: Constitutional: Vitals as noted. Conversant. No Apparent Distress. Well groomed. No obvious deformities. Eyes : Sclera white, conjunctiva clear, no lid lag, PEARLA. ENT : Grossly normal hearing. Oropharyngeal exam unremarkable. Moist mucus membranes. No JVD, no cervical lymphadenopathy. no thyromegaly or mass. Respiratory : Clear to auscultation bilaterally. No accessory muscle use, rales, rhonchi or wheezes Cardiovascular : RRR, +S1, +S2. no murmur, gallop, rubs. No chest wall tenderness GI/Abdominal : Soft, Non-tender, Non-distended, normal bowel sounds, soft, no peritoneal signs. no orgenomegaly or mass appreciated. no hernia. Musculoskeletal: Rt foot with swelling till above ankle with redness and warmth. Dressing placed on the right foot. No soaking of dressing with blood.. Postoperative shoe and place a right foot. Neurological: AO X3, CN II-XII grossly intact, grossly normal motor and sensory exam. Skin: No skin rash, lesions or ulcers noted. - Assessment and Plan (1) Osteomyelitis Current Visit: Yes Status: Acute Assessment and Plan: Patient presented to the hospital with diabetic foot ulcer. Upon initial evaluation patient cannot rule out acute osteomyelitis of metatarsal bone of her right foot at the right fifth toe. Podiatry was consulted and patient is status post incision and drainage of the abscess of right foot which was done on 04/18/2019. - WBC down trending - IV antibiotic vancomycin and Zosyn - Surgical culture showed gram-positive cocci. Pending sensitivity report. (2) Foot ulcer Current Visit: Yes Status: Acute Assessment and Plan: Management as above. (3) Type 2 diabetes mellitus Current Visit: No Status: Acute Assessment and Plan: Keep patient on sliding scale insulin and Accu-Cheks. Hold home metformin for now. (4) DVT prophylaxis Current Visit: No Status: Acute Assessment and Plan: heparin sq - Time Spent with Patient Total time spent is greater than 50% in coordination of care (as documented) at patient's floor/unit and/or counseling patient: 25 - 35 minutes Plan of Care Discussed with: patient Internal Medicine: Result - Labs CBC & Chem 7: 04/21/19 04:19 04/21/19 04:19 Labs: Short CBC 04/21/19 Range/Units 04:19 WBC 8.0 (4.3-11.1) K/mcL Hgb 10.7 L (12.9-16.9) g/dL Hct 33.8 L (37.5-50.1) % Plt Count 347 (140-400) K/mcL Neutrophils # 5.0 (1.6-8.9) K/mcL BMP 04/21/19 04:19 Sodium 137 Potassium 3.9 Chloride 102 Carbon Dioxide 25 BUN 15 Creatinine 1.27 Glucose 162 H Calcium 8.6 Consult Discharge Plan - Plan Referrals: Barby Godwin MD [Primary Care Provider] - (1) Osteomyelitis Qualifiers: Osteomyelitis type: unspecified type Osteomyelitis location: foot Laterality: right Qualified Code(s): M86.9 - Osteomyelitis, unspecified (2) Foot ulcer Qualifiers: Laterality: right Non-pressure ulcer stage: with fat layer exposed Qualified Code(s): L97.512 - Non-pressure chronic ulcer of other part of right foot with fat layer exposed (3) Type 2 diabetes mellitus Qualifiers: Diabetes mellitus long-term insulin use: without long-term use Diabetes mellitus complication status: with skin complications Diabetes mellitus complication detail: with other skin ulcer Qualified Code(s): E11.622 - Type 2 diabetes mellitus with other skin ulcer
--- NOTE | 2019-04-21 12:00 | Podiatry Progress Note ---
Date of Encounter: 04/21/19 Time of Encounter: 11:57 - Assessment and Plan (1) Acute osteomyelitis of metatarsal bone of right foot Current Visit: Yes Status: Acute Assessment: S/P Incision and drainage of abscess right foot, debridement of right fifth me tatarsal bone with Dr. Herndon on 04/18/19 Opening noted to distal aspect of incision, packing noted, sutures to proximal incision well approximated Maceration noted to periwound Erythema noted to right foot and right lower extremity, improving 1/4 edema noted 2/4 DP/PT RLE WBC 8.0, afebrile Path pending, surgical cultures returned gram positive cocci Plan: ID consulted for ATB management- appreciate recommendations Postoperative shoe in place, heel weight bearing only, limited weight bearing Local wound care, dressing changed Ok to d/c once cleared with hospitalist and ID Follow up in wound care center with Dr. Herndon next week, please make appointment prior to d/c services host to set up home care for dressing changes Cleansed right foot with 0.9 NS Painted periwound area with betadine, packed with 1/4 inch iodaform gauze, covered with adaptic, 4x4 dry gauze, and kerlix Secured with ALEX wrap Subjective Principal diagnosis: Gas gangrene, OM Interval history: Patient awake in bed. Alert and oriented. Mother at bedside. Patient denies any fevers, chills, nausea, vomiting, or diarrhea. Denies any calf pain, chest pain, or shortness of breath. Denies any pain. Reports he would like to go home before the weekend is over. Discussed ok to discharge from podiatry standpoint. Will need cleared with medical and infectious disease. Verbalized understanding. Discussed need for home care to help with dressing changes. Mother states if someone will give her supplies and show her how she can complete dressing changes. Will consult social studies department chair to help with discharge planning. No other questions or concerns at this time. Objective - Vital Signs Vital Signs: Vital Signs Temp Pulse Resp BP Pulse Ox 04/21/19 11:39 97.8 F 81 17 110/74 99 04/21/19 06:50 97.9 F 80 17 111/78 99 04/20/19 22:55 99.2 F 86 14 118/78 99 04/20/19 19:32 98.7 F 85 15 126/85 100 04/20/19 14:29 98.1 F 92 16 126/85 99 Intake and Output 04/20/19 04/21/19 04/21/19 23:59 07:59 15:59 Intake Total 350 / 1160 100 / 340 240 / 340 Balance 350 / 1160 100 / 340 240 / 340 Intake: IV Fluids 350 / 800 100 / 100 Zosyn 3.375 GM In 0.9 % Sodium 100 / 300 100 / 100 Chloride (Mini-Bag +) 100 ML @ 25 mls/hr IVPB Q8HR [facility] Rx#: [id number] Vancocin 1,250 MG In 0.9 % 250 / 250 Sodium Chloride 250 ML @ 166.67 mls/hr IVPB Q12H [facility] Rx#: [id number] Oral 240 / 240 Other: Meal Breakfast Percent of Meal Consumed 50% # Voids 1 1 Blood Glucose* 209 156 145 - Exam Exam: Constitiutional: Alert and oriented. Mentally handicapped. Well nourished. No acute distress noted Vascular: 2/4 DP/PT RLE. CFT <3 sec to all digits RLE, warm to warm from tibia to toes RLE, no calf pain with squeeze RLE Neurologic: Absent sensation to touch, normal plantar response Dermatologic: Incision noted to right lateral 5th metatarsal with opening to the distal aspect of incision. Packing noted. Proximal sutures in tact, well approximated. Erythema noted to foot and lower extremity. Mild edema noted. Musculoskeletal: 4/5 muscle strength and normal tone RLE - Lab Result Diagrams: 04/21/19 04:19 04/21/19 04:19 Labs: Abnormal lab results RBC 3.73 M/mcL (4.19-5.50) L 04/21/19 04:19 Hgb 10.7 g/dL (12.9-16.9) L 04/21/19 04:19 Hct 33.8 % (37.5-50.1) L 04/21/19 04:19 Plt Count 415 K/mcL (140-400) H 04/19/19 06:21 MPV 8.8 fL (9.4-12.4) L 04/21/19 04:19 Reactive Lymphocytes Present (Not Present) A 04/18/19 15:27 Toxic Granulation Present (Not Present) A 04/18/19 15:27 Sodium 133 mEq/L (136-145) L 04/18/19 15:27 Chloride 96 mEq/L (98-107) L 04/18/19 15:27 Carbon Dioxide 30 mEq/L (23-29) H 04/20/19 05:56 Glucose 162 mg/dL (70-105) H 04/21/19 04:19 POC Glucose 175 mg/dL (70-99) H 04/20/19 21:18 Hemoglobin A1c 8.0 % (-5.6) H 04/19/19 06:21 Vancomycin Trough 15 mcg/mL (5-10) H 04/20/19 05:56 Microbiology, Last 48 Hours 04/19/19 Unknown Surgical Biopsy Culture - Preliminary Right Foot Gram Positive Cocci 04/19/19 Unknown Surgical Biopsy Culture - Preliminary Right Foot Gram Positive Cocci 04/18/19 Unknown Anaerobic Culture - Preliminary Right Foot Culture is incubating. 04/18/19 20:01 Anaerobic Culture - Preliminary Right Foot Culture is incubating. Consult Discharge Plan - Plan Additional Instructions: Follow up in wound care center with Dr. Herndon next week. Cleanse right foot with 0.9 NS, paint macerated tissue with betadine, pack opening with 1/4 inch iodaform gauze, cover with 4x4 dry gauze, kerlix, and secure with medipore tape Referrals: Barby Godwin MD [Primary Care Provider] -
--- NOTE | 2019-04-21 16:04 | Infectious Disease Progress No ---
ID Progress Note Date of Encounter: 04/21/19 Time of Encounter: 16:03 - Subjective Subjective: Patient seen and examined. Appears very comfortable. No acute distress nontoxic. Patient denies any headache no chest pain or shortness of breath no nausea no vomiting no diarrhea no urinary symptoms. Pain is under control. Vital signs noted afebrile Labs noted Cultures pending - Objective CBC & Chem 7: 04/21/19 04:19 04/21/19 04:19 - Exam Vitals: Temp Pulse Resp BP Pulse Ox 98.3 F 82 17 111/73 98 04/21/19 14:49 04/21/19 14:49 04/21/19 14:49 04/21/19 14:49 04/21/19 14:49 Exam: GENERAL: Comfortable. Laying in bed NAD HEENT: FRANDY, EOMI LUNGS: Good air sounds bilaterally, no wheezing or rhonchi CV: RRR, S1 S2 ABDOMEN: Soft, nontender, + bowel sounds EXT: Right foot is surgically wrapped NEURO: A&OX3; no focal deficit - Assessment and Plan (1) Acute osteomyelitis of metatarsal bone of right foot Current Visit: Yes Status: Acute Status post incision and drainage of abscess right foot, debridement of fifth metatarsal bone. Intra-Op findings concerning for osteomyelitis with bone Intra-Op cultures positive for gram-positive cocci Patient started empirically on vancomycin/Zosyn SNOMED Code(s): 018515376 (2) Cellulitis of foot Current Visit: No Status: Acute SNOMED Code(s): 960834630 (3) Ulcer of left lower leg Current Visit: No Status: Acute Qualifiers: Non-pressure ulcer stage: limited to breakdown of skin Qualified Code(s): L97.921 - Non-pressure chronic ulcer of unspecified part of left lower leg limi carla to breakdown of skin SNOMED Code(s): 914259166, 684380583 (4) Type 2 diabetes mellitus Current Visit: No Status: Acute Qualifiers: Diabetes mellitus group home insulin use: without group home use Diabetes mellitus complication status: with skin complications Diabetes mellitus complication detail: with other skin ulcer Qualified Code(s): E11.622 - Type 2 diabetes mellitus with other skin ulcer SNOMED Code(s): 06921208 - Recommendations Recommendations: Continue current antibiotic treatment with vancomycin and Zosyn Goal vancomycin trough around 15 Once cultures finalize, we will make final recommendations on discharge antibiotics. PICC line in place in the left upper extremity Duration of treatment probably 4-6 weeks Monitor labs and for drug toxicity Discussed with Dr. Herndon Consult Discharge Plan - Plan Additional Instructions: Follow up in wound care center with Dr. Herndon next week. Cleanse right foot with 0.9 NS, paint macerated tissue with betadine, pack opening with 1/4 inch iodaform gauze, cover with 4x4 dry gauze, kerlix, and secure with medipore tape Referrals: Barby Godwin MD [Primary Care Provider] -
[2019-04-22 04:50] LABS: Basophils % 0.4 %; Eosinophils # 0.3 K/mcL (0.0-0.6); Eosinophils % 2.8 %; Hemoglobin 10.9 g/dL (12.9-16.9); Immature Granulocytes % 0.7 % (0-4); Lymphocytes # 1.8 K/mcL (0.6-4.6); Lymphocytes % 20.3 %; Mean Corpuscular Hemoglobin 29.9 pg (28.0-33.3); Mean Corpuscular Volume 90.4 fL (83.0-100.0); Mean Platelet Volume 8.6 fL (9.4-12.4); Monocytes # 0.7 K/mcL (0.0-1.3); Monocytes % 7.7 %; Neutrophils # 6.1 K/mcL (1.6-8.9); Platelet Count 315 K/mcL (140-400); Red Blood Count 3.65 M/mcL (4.19-5.50); Red Cell Distribution Width 12.2 % (11.5-14.5); Segmented Neutrophils % 68.1 %; White Blood Count 8.9 K/mcL (4.3-11.1)
[2019-04-22 05:09] LABS: BUN/Creatinine Ratio 11 (6-26); Blood Urea Nitrogen 13 mg/dL (6-20); Calcium 8.7 mg/dL (8.6-10.3); Carbon Dioxide 24 mEq/L (23-29); Chloride 100 mEq/L (98-107); Glucose 147 mg/dL (70-105); Osmolality,Calculated 287 (280-300); Potassium 3.8 mEq/L (3.5-5.1); Sodium 137 mEq/L (136-145); eGFR For African Americans > 60 (> 60); eGFR For Non-African Americans > 60 (> 60)
[2019-04-22] MEDS: *HR* Heparin 5,000 UNIT/ML VIAL SQ SCH ×3 (05:51→22:05)
[2019-04-22] MEDS: Piperacillin/Tazobactam 3.375 GM in 0.9 % Sodium Chloride Mini Bag 100 ML IVPB SCH ×2 (09:07→18:01)
[2019-04-22] MEDS: Insulin LISPRO 300 UNITS/3 ML VIAL SQ SCH ×4 (09:08→23:39)
[2019-04-22] MEDS ORDERED: 0.9 % Sodium Chloride 250 ML ONE (09:16)
--- NOTE | 2019-04-22 09:16 | Internal Med Progress Note ---
Hospitalist Progress Note - Encounter Date of Encounter: 04/22/19 Time of Encounter: 09:12 - Subjective Interval History: Patient was seen and examined at bedside today. Patient denied any acute issues overnight. Patient reports a mild right foot pain. Patient denied any tingling and numbness. Pain is located in the right foot region, sharp, 3 out of 10 in severity. Denies any fever and chills. - Exam Vitals: Temp Pulse Resp BP Pulse Ox 98.2 F 79 15 118/79 97 04/22/19 07:30 04/22/19 07:30 04/22/19 07:30 04/22/19 07:30 04/22/19 07:30 Exam: Constitutional: Vitals as noted. Conversant. No Apparent Distress. Well groomed. No obvious deformities. Eyes : Sclera white, conjunctiva clear, no lid lag, PEARLA. ENT : Grossly normal hearing. Oropharyngeal exam unremarkable. Moist mucus membranes. No JVD, no cervical lymphadenopathy. no thyromegaly or mass. Respiratory : Clear to auscultation bilaterally. No accessory muscle use, rales, rhonchi or wheezes Cardiovascular : RRR, +S1, +S2. no murmur, gallop, rubs. No chest wall tenderness GI/Abdominal : Soft, Non-tender, Non-distended, normal bowel sounds, soft, no peritoneal signs. no orgenomegaly or mass appreciated. no hernia. Musculoskeletal: Rt foot with swelling till above ankle with redness and warmth. Dressing placed on the right foot. No soaking of dressing with blood.. Postoperative shoe and place a right foot. Neurological: AO X3, CN II-XII grossly intact, grossly normal motor and sensory exam. Skin: No skin rash, lesions or ulcers noted. - Assessment and Plan (1) Osteomyelitis Current Visit: Yes Status: Acute Assessment and Plan: Patient presented to the hospital with diabetic foot ulcer. Upon initial evaluation patient cannot rule out acute osteomyelitis of metatarsal bone of her right foot at the right fifth toe. Podiatry was consulted and patient is status post incision and drainage of the abscess of right foot which was done on 04/18/2019. - WBC down trending - IV antibiotic vancomycin and Zosyn - Surgical culture showed gram-positive cocci. Surgical culture collected on April 19 showed gram-positive cocci staph aureus which was MSSA. We will await ID recommendations regarding the antibiotics and duration. Blood culture still pending and aerobic culture still pending. (2) Foot ulcer Current Visit: Yes Status: Acute Assessment and Plan: Management as above. (3) Type 2 diabetes mellitus Current Visit: No Status: Acute Assessment and Plan: Keep patient on sliding scale insulin and Accu-Cheks. Hold home metformin for now. (4) DVT prophylaxis Current Visit: No Status: Acute Assessment and Plan: heparin sq - Time Spent with Patient Total time spent is greater than 50% in coordination of care (as documented) at patient's floor/unit and/or counseling patient: 25 - 35 minutes Plan of Care Discussed with: patient Internal Medicine: Result - Labs CBC & Chem 7: 04/22/19 04:40 04/22/19 04:40 Labs: Short CBC 04/22/19 Range/Units 04:40 WBC 8.9 (4.3-11.1) K/mcL Hgb 10.9 L (12.9-16.9) g/dL Hct 33.0 L (37.5-50.1) % Plt Count 315 (140-400) K/mcL Neutrophils # 6.1 (1.6-8.9) K/mcL BMP 04/22/19 04:40 Sodium 137 Potassium 3.8 Chloride 100 Carbon Dioxide 24 BUN 13 Creatinine 1.15 Glucose 147 H Calcium 8.7 Consult Discharge Plan - Plan Additional Instructions: Follow up in wound care center with Dr. Herndon next week. Cleanse right foot with 0.9 NS, paint macerated tissue with betadine, pack opening with 1/4 inch iodaform gauze, cover with 4x4 dry gauze, kerlix, and secure with medipore tape Referrals: Barby Godwin MD [Primary Care Provider] - (1) Osteomyelitis Qualifiers: Osteomyelitis type: unspecified type Osteomyelitis location: foot Laterality: right Qualified Code(s): M86.9 - Osteomyelitis, unspecified (2) Foot ulcer Qualifiers: Laterality: right Non-pressure ulcer stage: with fat layer exposed Qualified Code(s): L97.512 - Non-pressure chronic ulcer of other part of right foot with fat layer exposed (3) Type 2 diabetes mellitus Qualifiers: Diabetes mellitus fci insulin use: without fci use Diabetes mellitus complication status: with skin complications Diabetes mellitus complication detail: with other skin ulcer Qualified Code(s): E11.622 - Type 2 diabetes mellitus with other skin ulcer
--- NOTE | 2019-04-22 10:31 | Podiatry Progress Note ---
Date of Encounter: 04/22/19 Time of Encounter: 09:45 Subjective Principal diagnosis: Gas gangrene, OM Interval history: Saw patient yesterday and again today. s/p incision and drainage and debridement of bone right foot. Patient says he is doing much better now compare d to before surgery. says he is able to put weight on his foot and it does not hurt. he denies feeling like he had a fever, chills, nausea, vomiting. says his foot also looks better to him. Bandage clean dry and intact. There is no strikethrough. Discussed with patient and mother course of recovery. Continue to wear surgical shoe and weight-bear on heel. Continue with flush packing daily for now. foot stable for discharge. awaiting finalization of his IV antibiotics-followed by ID. Objective - Vital Signs Vital Signs: Vital Signs Temp Pulse Resp BP Pulse Ox 04/22/19 07:30 98.2 F 79 15 118/79 97 04/22/19 03:16 97.9 F 84 15 121/80 97 04/21/19 19:38 98.5 F 83 15 129/88 97 04/21/19 14:49 98.3 F 82 17 111/73 98 04/21/19 11:39 97.8 F 81 17 110/74 99 Intake and Output 04/21/19 04/22/19 04/22/19 23:59 07:59 15:59 Intake Total 470 / 1280 350 / 350 Output Total 925 / 925 Balance 470 / 1275 -575 / -575 Intake: IV Fluids 350 / 800 350 / 350 Zosyn 3.375 GM In 0.9 % Sodium 100 / 300 100 / 100 Chloride (Mini-Bag +) 100 ML @ 25 mls/hr IVPB Q8HR REESE Rx#: [id number] Vancocin 1,250 MG In 0.9 % 250 / 500 250 / 250 Sodium Chloride 250 ML @ 166.67 mls/hr IVPB Q12H REEES Rx#: [id number] Oral 120 / 480 Output: Urine 925 / 925 Other: Meal Dinner Percent of Meal Consumed 50% Weight 92.6 kg Blood Glucose* 160 132 Patient Weight 04/22/19 23:59 Weight 92.6 kg - Lab Result Diagrams: 04/22/19 04:40 04/22/19 04:40 Labs: Abnormal lab results RBC 3.65 M/mcL (4.19-5.50) L 04/22/19 04:40 Hgb 10.9 g/dL (12.9-16.9) L 04/22/19 04:40 Hct 33.0 % (37.5-50.1) L 04/22/19 04:40 Plt Count 415 K/mcL (140-400) H 04/19/19 06:21 MPV 8.6 fL (9.4-12.4) L 04/22/19 04:40 Reactive Lymphocytes Present (Not Present) A 04/18/19 15:27 Toxic Granulation Present (Not Present) A 04/18/19 15:27 Sodium 133 mEq/L (136-145) L 04/18/19 15:27 Chloride 96 mEq/L (98-107) L 04/18/19 15:27 Carbon Dioxide 30 mEq/L (23-29) H 04/20/19 05:56 Glucose 147 mg/dL (70-105) H 04/22/19 04:40 POC Glucose 160 mg/dL (70-99) H 04/21/19 21:13 Hemoglobin A1c 8.0 % (-5.6) H 04/19/19 06:21 Vancomycin Trough 18 mcg/mL (5-10) H 04/21/19 17:23 Microbiology, Last 48 Hours 04/19/19 Unknown Surgical Biopsy Culture - Preliminary Right Foot Staphylococcus aureus Gram Positive Cocci#2 04/19/19 Unknown Surgical Biopsy Culture - Preliminary Right Foot Gram Positive Cocci Consult Discharge Plan - Plan Additional Instructions: Follow up in wound care center with Dr. Herndon next week. Cleanse right foot with 0.9 NS, paint macerated tissue with betadine, pack opening with 1/4 inch iodaform gauze, cover with 4x4 dry gauze, kerlix, and se cure with medipore tape Referrals: Barby Godwin MD [Primary Care Provider] -
[2019-04-23] MEDS: Piperacillin/Tazobactam 3.375 GM in 0.9 % Sodium Chloride Mini Bag 100 ML IVPB SCH ×2 (00:37→08:08)
[2019-04-23 05:36] LABS: BUN/Creatinine Ratio 11 (6-26); Blood Urea Nitrogen 13 mg/dL (6-20); Calcium 8.6 mg/dL (8.6-10.3); Carbon Dioxide 29 mEq/L (23-29); Chloride 103 mEq/L (98-107); Glucose 163 mg/dL (70-105); Osmolality,Calculated 292 (280-300); Sodium 139 mEq/L (136-145); eGFR For African Americans > 60 (> 60); eGFR For Non-African Americans > 60 (> 60)
[2019-04-23] MEDS: *HR* Heparin 5,000 UNIT/ML VIAL SQ SCH (06:12)
[2019-04-23 08:06] VITALS: BP 119/80
[2019-04-23] MEDS: Insulin LISPRO 300 UNITS/3 ML VIAL SQ SCH ×2 (08:14→12:11)
--- NOTE | 2019-04-23 08:27 | Discharge Summary ---
- NOTES TO OUTPATIENT PROVIDER Notes to Outpatient Provider: Patient was hospitalized for left fifth toe osteomyelitis. Patient improved 1 antibiotic. Patient was discharged on cefepime 2 g every 8 hours for 6 weeks and Flagyl 500 mg by mouth 3 times a day for 6 weeks. Follow-up on an aerobic culture. Follow up with patient in 1 w [place] [facility]. Patient is to follow-up with podiatry clinic next week. Patient is to follow-up with infectious disease in 2 weeks. Orders not resulted at time of discharge: Pending orders 04/18/19 Culture,Anaerobic [RM] Routine 04/18/19 16:54 Culture,Blood [BC] Stat 04/18/19 20:01 Culture,Anaerobic [RM] Routine 04/19/19 Culture,Tissue (Biopsy) [RM] Routine Culture,Tissue (Biopsy) [RM] Routine Estimated PT Needs at Discharge: Home Health Date of Encounter: 04/23/19 Time of Encounter: 08:25 - Discharge Diagnosis (1) Osteomyelitis Priority: Primary Status: Acute Qualifiers: Osteomyelitis type: unspecified type Osteomyelitis location: foot Laterality: right Qualified Code(s): M86.9 - Osteomyelitis, unspecified (2) Foot ulcer Priority: Secondary Status: Acute Qualifiers: Laterality: right Non-pressure ulcer stage: with fat layer exposed Qualified Code(s): L97.512 - Non-pressure chronic ulcer of other part of right foot with fat layer exposed (3) Type 2 diabetes mellitus Priority: Secondary Status: Acute Qualifiers: Diabetes mellitus senior care insulin use: without termite exterminator use Diabetes mellitus complication status: with skin complications Diabetes mellitus complication detail: with other skin ulcer Qualified Code(s): E11.622 - Type 2 diabetes mellitus with other skin ulcer (4) DVT prophylaxis Priority: Secondary Status: Acute Hospital course: Mr. Lewis is a 43 year old male past medical history of diabetes was hospitalized for left fifth toe osteomyelitis. Patient improved on antibiotic. Dr. pink was placed. Podiatry did debridement. Patient was placed on vancomycin and Zosyn in the hospital. Patient's wound culture grew MSSA. Vaishnavi erobic culture was still pending at the time of discharge. Patient was discharged on cefepime 2 g every 8 hours for 6 weeks and Flagyl 500 mg by mouth 3 times a day for 6 weeks. Follow-up on an anerobic culture. Follow up with patient in 1 week. Patient is to follow-up with podiatry clinic next week. Patient is to follow-up with infectious disease in 2 weeks. Patient needs CBC, BUN, creatinine, ESR, and CRP blood draw done every week. Discharge discussed with: patient, family, nurse, social work, case management - Time Spent with Patient Total time spent providing and/or coordinating discharge services: 45 Time spent: Greater than 30 minutes - Discharge Medications Prescriptions: Continued Levothyroxine Sodium [Levoxyl] 50 mcg PO QAM Metformin HCl [Fortamet] 2,000 mg PO QPM Home Medications: Levothyroxine Sodium [Levoxyl] 50 mcg PO QAM 04/19/19 [History] Metformin HCl [Fortamet] 2,000 mg PO QPM 04/19/19 [History] ceFAZolin [Ancef] 2,000 mg IVPB Q8HR 42 Days #126 vial 04/23/19 [Rx] metroNIDAZOLE [Flagyl] 500 mg PO TID 42 Days #126 tablet 04/23/19 [Rx] Allergies/Adverse Reactions: Allergy/AdvReac Type Severity Reaction Status Date / Time No Known Allergies Allergy Verified 04/18/19 14:24 Date of admission: 04/19/19 10:49 Primary care physician: Barby Godwin MD Consults: 04/18/19 16:31 Consult to Podiatry [CONS] Stat Consulting Provider: Podiatry [facility] Reason for Consult: foot wound Time Notified: 16:32 Call Completed: Yes 04/19/19 14:42 Consult to Infectious Diseases [CONS] Stat Consulting Provider: Infectious Disease [place] Reason for Consult: Amtibiotic managment for osteomyelitis Call Completed: Yes 04/21/19 09:24 Consult to Invasive Line Access Team [CONS] Routine Reason for Consult: Picc Line Insertion Line Type: PICC 04/21/19 12:00 Consult to Internal Combustion Engineer [CONS] Stat Reason for SW Consult: Home care for dressing changes Discharging clinician: Hubert Monzon - Constitutional Vitals: Temp Pulse Resp BP Pulse Ox 98.1 F 81 16 119/80 96 04/23/19 08:05 04/23/19 08:05 04/23/19 08:05 04/23/19 08:05 04/23/19 08:05 General appearance: Present: cooperative, A&O X 3 Exam: Constitutional: Vitals as noted. Conversant. No Apparent Distress. Well groomed. No obvious deformities. Eyes : Sclera white, conjunctiva clear, no lid lag, PEARLA. ENT : Grossly normal hearing. Oropharyngeal exam unremarkable. Moist mucus membranes. No JVD, no cervical lymphadenopathy. no thyromegaly or mass. Respiratory : Clear to auscultation bilaterally. No accessory muscle use, rales, rhonchi or wheezes Cardiovascular : RRR, +S1, +S2. no murmur, gallop, rubs. No chest wall tenderness GI/Abdominal : Soft, Non-tender, Non-distended, normal bowel sounds, soft, no peritoneal signs. no orgenomegaly or mass appreciated. no hernia. Musculoskeletal: Rt foot with swelling till above ankle with redness and warmth. Dressing placed on the right foot. No soaking of dressing with blood.. Postoperative shoe and place a right foot. Neurological: AO X3, CN II-XII grossly intact, grossly normal motor and sensory exam. Skin: No skin rash, lesions or ulcers noted. - Patient Status Disposition: Home Health Service Condition: Good Functional capacity at discharge: uses cane/walker Overall status at discharge: patient is progressing back to baseline - Discharge Instructions Follow Up With: Barby Godwin MD [Primary Care Provider] - Additional Instructions: Follow up in wound care center with Dr. Herndon next week. Cleanse right foot with 0.9 NS, paint macerated tissue with betadine, pack opening with 1/4 inch iodaform gauze, cover with 4x4 dry gauze, kerlix, and secure with medipore tape Patient is to follow-up with infectious disease in 2 weeks. Patient discharged home with home health. Patient will go on Ancef 2 g every 8 hours IV infusion. Flagyl 500 mg by mouth 3 times a day. Patient is to continue antibiotic for 6 weeks. Patient to follow-up with infectious disease in 2 weeks. Recently weekly CBC, BUN, creatinine, ESR, and CRP blood draw - Diet and Activity Activity: increase activity as tolerated Diet: diabetic diet
--- NOTE | 2019-04-23 10:17 | Physician Discharge Referral ---
Home Health/Hosp Referral Info Transfer to: Home Health Provider in Charge Post Discharge: PCP - Diagnosis (1) Osteomyelitis Priority: Primary Status: Acute (2) Foot ulcer Priority: Secondary Status: Acute (3) Type 2 diabetes mellitus Priority: Secondary Status: Acute (4) DVT prophylaxis Priority: Secondary Status: Acute - Respiratory Orders Smoking Cessation: Smoking cessation has been advised. For more information, call the [place] Tobacco Quit Line at 4-226-JNVV-NOW. - Diet/Nutrition Diet/Nutrition Orders: No Added Salt (NELDA) Diet/Nutrition: List: Diabetic diet. - Activity Activity Orders: Ambulate, Walker - Services Needed Following services are medically necessary services: Nursing, Home Health Aide, Physical Therapy, Occupational Therapy, Home Infusion Other Treatments: Patient will need IV antibiotic infusion. Patient will need repeat blood draw for CBC, albumin, creatinine, ESR, and CRP. Patient will also need dressing change. Deressing instruction per podiatry. - Transfer Medications Prescriptions: ceFAZolin [Ancef] 2,000 mg IVPB Q8HR 42 Days #126 vial metroNIDAZOLE [Flagyl] 500 mg PO TID 42 Days #126 tablet Home Medications: Levothyroxine Sodium [Levoxyl] 50 mcg PO QAM 04/19/19 [History] Metformin HCl [Fortamet] 2,000 mg PO QPM 04/19/19 [History] ceFAZolin [Ancef] 2,000 mg IVPB Q8HR 42 Days #126 vial 04/23/19 [Rx] metroNIDAZOLE [Flagyl] 500 mg PO TID 42 Days #126 tablet 04/23/19 [Rx] Allergies/Adverse Reactions: Allergy/AdvReac Type Severity Reaction Status Date / Time No Known Allergies Allergy Verified 04/18/19 14:24 Certification: Further, I certify that my clinical findings support that this patient is homebound (i.e. absences from home require considerable and taxing effort and are for medical reasons or worship services or infrequently or short duration when for other reasons) because: Homebound Reason: Patient requires assistance of a person or device to safely leave home Attestation: My signature below is to certify that this patient is under my care and that I, or nurse practitioner, or a physician's medical office receptionist assistant working with me, has a [id number] encounter with this patient.
[2019-04-23] MEDS ORDERED: Aminoglycoside Consult 1 EACH MC ONE (12:12)
== END 2019-04-23 12:13 | disposition home health service (06) | DRG 628 ==
LOC: 3ANU 14:15 → EMEROOARM 14:15 → 3ANU 18:32 → SUATTDRO 19:12
PROVIDERS: ADMIT Internal Medicine Nephrology; ATTEND Family Medicine